=== PATIENT | female | born 1950 | race Caucasian/White ===

== ENCOUNTER 2017-01-29 08:01 | Emergency (ER) | payer OTHER, MEDICAID ==
[~2017-01-29] VITALS: Ht 162.6 cm; Wt 101.2 kg
[~2017-01-29 08:01] MED LIST: AMYL1CAP58 PO; ANT30 PO; ARIP15TA2 PO; BUSP15TA3 PO; DOCU-144 PO; EMPA10TA PO; FAMO20TA98 PO; GABA600T PO; GLUC100017 PO; INSU100V9 SUBCUT; LEVO150T PO; LISI-652 PO; LORA-259 PO; MAGN250T31 PO; MELO15TA13 PO; MORP30CP13 PO; PRO40 PO; SAXA2.5T PO; SIMV40TA2 PO; TEMA30CA5 PO; TIZA4TAB11 PO; VITA1CAP PO
[2017-01-29 08:06] VITALS: BP_SYST 174
[2017-01-29] MEDS ORDERED: IPRATROPIUM/ALBUTEROL SULFATE 3 ML AMPUL.NEB INH ONE (08:15)
[2017-01-29] MEDS ORDERED: NACL 0.9% 1,000 ML IV ONE (08:15)
--- NOTE | 2017-01-29 08:15 | NUR ---
Pt placed to ER bed 04 and to gown. Pt report received from KARON Vasquez. Pt states "I feel sick" with coughing x 10 days, coughing up "black" colored mucous. Pt also c/o Bilat rib pain from coughing. Respirations even and non-labored, BBS clear.
--- NOTE | 2017-01-29 08:38 | NUR ---
Dr. Wright at bedside to assess pt.
[2017-01-29 08:45] VITALS: BP_SYST 154
--- NOTE | 2017-01-29 08:45 | NUR ---
Patient given written and verbal discharge instructions and verbalizes understanding. ER MD discussed with patient the results and treatment provided. Patient in stable condition. ID arm band removed. Patient educated on pain management and to follow up with PMD. Pain Scale 0/10 Opportunity for questions provided and answered.
== END 2017-01-29 08:45 | disposition home or self-care (01) ==
LOC: SED 08:01
DX: B34.9 Viral infection, unspecified (principal); E78.5 Hyperlipidemia, unspecified; I10 Essential (primary) hypertension; E11.9 Type 2 diabetes mellitus without complications; Z88.0 Allergy status to penicillin; Z88.1 Allergy status to other antibiotic agents; Z79.4 Long term (current) use of insulin; Z85.850 Personal history of malignant neoplasm of thyroid
CPT/HCPCS: 71010; 99283; 99284

== ENCOUNTER 2017-03-02 15:26 | Emergency (ER) | payer OTHER, MEDICAID ==
[~2017-03-02] VITALS: Ht 162.6 cm; Wt 101.2 kg
[2017-03-02 15:26] VITALS: BP_SYST 166
[2017-03-02] MEDS ORDERED: cloNIDine HCL 0.1 MG TABLET PO ONE (16:00)
[2017-03-02 16:31] LABS: BASOPHILS % (AUTO) 0.2 % (0.0-2.0); EOSINOPHILS % (AUTO) 0.3 % (0.0-4.0); HEMATOCRIT 38.2 % (36-48); HEMOGLOBIN 12.9 g/dL (12.0-16.0); LYMPHOCYTES # (AUTO) 1.8 K/uL (1.0-5.5); LYMPHOCYTES % (AUTO) 17.3 % (20.5-51.5); MEAN CORPUSCULAR HEMOGLOBIN 30 pg (27-31); MEAN CORPUSCULAR HGB CONC 34 % (32-36); MEAN CORPUSCULAR VOLUME 88 fL (79.0-98.0); MONOCYTES # (AUTO) 0.8 K/uL (0.0-1.0); NEUTROPHILS # (AUTO) 7.6 K/uL (1.8-7.7); NEUTROPHILS % (AUTO) 74.2 % (40.0-70.0); PLATELET COUNT (AUTO) 205 K/uL (130-430); RED BLOOD CELL COUNT(AUTO) 4.32 MIL/uL (4.2-6.2); RED CELL DISTRIBUTION WIDTH 12.1 % (9.0-15.0); WHITE BLOOD COUNT (AUTO) 10.2 K/uL (4.8-10.8)
[2017-03-02 16:39] LABS: CALCIUM 11.1 mg/dL (8.4-11.0); CREATININE 1.08 mg/dL (0.55-1.30); POTASSIUM 4.2 mmol/L (3.5-5.1)
[2017-03-02 16:43] LABS: ALBUMIN 3.8 g/dL (3.4-4.8); TOTAL BILIRUBIN 0.3 mg/dL (0.0-1.0); TOTAL PROTEIN, SERUM 7.9 g/dL (6.4-8.3)
[2017-03-02 16:57] LABS: INR 0.9 (0.8-1.2); PROTHROMBIN TIME 10.3 SECS (9.5-12.5)
[2017-03-02 17:38] LABS: CKMB RELATIVE INDEX 1.6 (0.0-2.9); CREATINE KINASE MB 3.4 ng/mL (0-3.6)
[2017-03-02 18:02] VITALS: BP_SYST 132
== END 2017-03-02 18:03 | disposition home or self-care (01) ==
LOC: SED 15:26
DX: I10 Essential (primary) hypertension (principal); R51 Headache; E11.9 Type 2 diabetes mellitus without complications; Z85.850 Personal history of malignant neoplasm of thyroid; Z79.4 Long term (current) use of insulin; Z88.0 Allergy status to penicillin; Z88.1 Allergy status to other antibiotic agents
CPT/HCPCS: 36415; 70450-TC; 71010; 80053; 82550-TC; 82553-TC; 83880; 84484; 85025; 85379; 85610-TC; 85730-TC; 93005; 99285

== ENCOUNTER 2017-08-26 14:02 | Emergency (ER) | payer OTHER, MEDICAID ==
[~2017-08-26] VITALS: Ht 157.5 cm; Wt 104.3 kg
[2017-08-26 14:02] VITALS: BP_SYST 144
[2017-08-26 14:54] LABS: BILIRUBIN,URINE NEGATIVE (NEGATIVE); BLOOD, URINE NEGATIVE (NEGATIVE); CLARITY/URINE CLEAR (CLEAR); COLOR,URINE YELLOW (YELLOW); GLUCOSE,URINE NEGATIVE (NEGATIVE); KETONES,URINE NEGATIVE (NEGATIVE); LEUKOCYTE ESTERASE ,URINE NEGATIVE (NEGATIVE); NITRITE, URINE NEGATIVE (NEGATIVE); PROTEIN URINE NEGATIVE (NEGATIVE); UROBILINOGEN,URINE 0.2 (0.2-1.0)
[2017-08-26 14:58] LABS: BASOPHILS # (AUTO) 0.2 K/uL (0.0-0.2); BASOPHILS % (AUTO) 2.9 % (0.0-2.0); EOSINOPHILS # (AUTO) 0.2 K/uL (0.0-0.4); EOSINOPHILS % (AUTO) 3.1 % (0.0-4.0); HEMATOCRIT 35.6 % (36-48); LYMPHOCYTES # (AUTO) 0.6 K/uL (1.0-5.5); LYMPHOCYTES % (AUTO) 9.3 % (20.5-51.5); MEAN CORPUSCULAR HEMOGLOBIN 30 pg (27-31); MEAN CORPUSCULAR HGB CONC 34 % (32-36); MEAN CORPUSCULAR VOLUME 89 fL (79.0-98.0); MONOCYTES # (AUTO) 0.7 K/uL (0.0-1.0); MONOCYTES % (AUTO) 11.3 % (1.7-9.3); NEUTROPHILS # (AUTO) 4.8 K/uL (1.8-7.7); NEUTROPHILS % (AUTO) 73.4 % (40.0-70.0); PLATELET COUNT (AUTO) 163 K/uL (130-430); RED BLOOD CELL COUNT(AUTO) 4.01 MIL/uL (4.2-6.2); RED CELL DISTRIBUTION WIDTH 12.6 % (9.0-15.0); WHITE BLOOD COUNT (AUTO) 6.5 K/uL (4.8-10.8)
[2017-08-26 15:10] LABS: BARBITURATE, URINE NEGATIVE (NEG <=200); BENZODIAZEPINE, URINE POSITIVE (NEG <=150); CANNABINOID, URINE NEGATIVE (NEG <=50); COCAINE, URINE NEGATIVE (NEG <=150); METHAMPHETAMINES SCREEN,URINE NEGATIVE (NEG <=500); OPIATE, URINE POSITIVE (NEG <=100); PHENCYCLIDINE SCREEN,URINE NEGATIVE (NEG <=25); UR TRICYCLIC ANTIDEPRESSANTS NEGATIVE (NEG <=300); URINE AMPHETAMINE NEGATIVE (NEG <=500); URINE METHADONE NEGATIVE (NEG <=200); URINE OXYCODONE SCREEN NEGATIVE (NEG <=100); URINE PROPOXYPHENE SCREEN NEGATIVE (NEG <=300)
[2017-08-26 15:10] LABS: ANION GAP 6 (5-15); CALCIUM 8.1 mg/dL (8.4-11.0); CHLORIDE 105 mmol/L (98-107); CREATININE 0.96 mg/dL (0.55-1.30); GLUCOSE 93 mg/dL (70-99); POTASSIUM 3.9 mmol/L (3.5-5.1); SODIUM SERUM 138 mmol/L (136-145); UREA NITROGEN, BLOOD 26 mg/dL (8-21)
[2017-08-26 15:12] LABS: PROTHROMBIN TIME 10.2 SECS (9.5-12.5)
[2017-08-26 15:23] LABS: GFR AFRICAN AMERICAN 75 mL/min (>90)
[2017-08-26 15:26] LABS: ALANINE AMINOTRANSFERASE 44 U/L (12-78); ALBUMIN 3.5 g/dL (3.4-4.8); ASPARTATE AMINOTRANSFERASE 32 U/L (10-37); FREE T4 (FREE THYROXINE) 1.6 ng/dL (0.6-1.6); TOTAL BILIRUBIN 0.6 mg/dL (0.0-1.0)
[2017-08-26 15:27] LABS: ALCOHOL, BLOOD < 3 mg/dL (<10)
[2017-08-26] MEDS ORDERED: ALPRAZolam 0.25 MG TABLET PO ONE (15:30)
[2017-08-26 16:40] VITALS: BP_SYST 138
== END 2017-08-26 16:40 | disposition home or self-care (01) ==
LOC: SED 14:02
DX: F41.9 Anxiety disorder, unspecified (principal); E03.9 Hypothyroidism, unspecified; M79.1 Myalgia; E11.9 Type 2 diabetes mellitus without complications; I10 Essential (primary) hypertension; E11.40 Type 2 diabetes mellitus with diabetic neuropathy, unspecified; F31.9 Bipolar disorder, unspecified; Z90.49 Acquired absence of other specified parts of digestive tract; Z79.4 Long term (current) use of insulin; Z79.899 Other long term (current) drug therapy; Z88.0 Allergy status to penicillin; Z88.1 Allergy status to other antibiotic agents
CPT/HCPCS: 36415; 71010; 74000; 80053; 80307; 81003; 82140; 83605; 83880; 84439; 84484; 85025; 85610; 87040; 93005; 99285; G0482

== ENCOUNTER 2017-12-01 15:37 | Emergency (ER) | payer OTHER, MEDICAID ==
[~2017-12-01] VITALS: Ht 162.6 cm; Wt 108.9 kg
[2017-12-01 15:40] VITALS: BP_SYST 164
[2017-12-01 16:38] LABS: BILIRUBIN,URINE NEGATIVE (NEGATIVE); BLOOD, URINE NEGATIVE (NEGATIVE); CLARITY/URINE CLEAR (CLEAR); COLOR,URINE YELLOW (YELLOW); GLUCOSE,URINE NEGATIVE (NEGATIVE); KETONES,URINE NEGATIVE (NEGATIVE); LEUKOCYTE ESTERASE ,URINE NEGATIVE (NEGATIVE); NITRITE, URINE NEGATIVE (NEGATIVE); PH,URINE 5.5 (5.0-8.0); PROTEIN URINE NEGATIVE (NEGATIVE); UROBILINOGEN,URINE 0.2 (0.2-1.0)
[2017-12-01 16:55] LABS: CALCIUM 9.6 mg/dL (8.4-11.0); CREATININE 1.04 mg/dL (0.55-1.30); POTASSIUM 4.7 mmol/L (3.5-5.1)
[2017-12-01 16:58] LABS: PROTHROMBIN TIME 9.8 SECS (9.5-12.5)
[2017-12-01 17:00] LABS: ALBUMIN 3.5 g/dL (3.4-4.8); TOTAL BILIRUBIN 0.4 mg/dL (0.0-1.0)
[2017-12-01 17:38] LABS: BASOPHILS # (AUTO) 0.1 K/uL (0.0-0.2); BASOPHILS % (AUTO) 1.2 % (0.0-2.0); EOSINOPHILS % (AUTO) 0.5 % (0.0-4.0); HEMATOCRIT 35.6 % (36-48); HEMOGLOBIN 11.7 g/dL (12.0-16.0); LYMPHOCYTES # (AUTO) 0.8 K/uL (1.0-5.5); LYMPHOCYTES % (AUTO) 8.2 % (20.5-51.5); MEAN CORPUSCULAR HEMOGLOBIN 29 pg (27-31); MEAN CORPUSCULAR HGB CONC 33 % (32-36); MEAN CORPUSCULAR VOLUME 89 fL (79.0-98.0); MONOCYTES # (AUTO) 0.5 K/uL (0.0-1.0); MONOCYTES % (AUTO) 5.4 % (1.7-9.3); NEUTROPHILS # (AUTO) 7.8 K/uL (1.8-7.7); NEUTROPHILS % (AUTO) 84.7 % (40.0-70.0); PLATELET COUNT (AUTO) 195 K/uL (130-430); RED BLOOD CELL COUNT(AUTO) 3.99 MIL/uL (4.2-6.2); RED CELL DISTRIBUTION WIDTH 13.8 % (9.0-15.0); WHITE BLOOD COUNT (AUTO) 9.2 K/uL (4.8-10.8)
[2017-12-01] MEDS: LORazepam 1 MG TABLET PO ONE ×2 (18:52→19:01)
[2017-12-01 19:16] VITALS: BP_SYST 150
== END 2017-12-01 19:16 | disposition home or self-care (01) ==
LOC: SED 15:37
DX: R50.9 Fever, unspecified (principal); R51 Headache; M79.1 Myalgia; I10 Essential (primary) hypertension; E03.9 Hypothyroidism, unspecified; E11.21 Type 2 diabetes mellitus with diabetic nephropathy; F32.9 Major depressive disorder, single episode, unspecified; Z85.850 Personal history of malignant neoplasm of thyroid; Z90.710 Acquired absence of both cervix and uterus; Z90.49 Acquired absence of other specified parts of digestive tract; Z88.0 Allergy status to penicillin; Z88.1 Allergy status to other antibiotic agents; Z79.899 Other long term (current) drug therapy
CPT/HCPCS: 36415; 71045; 80053; 81003; 85025; 85610-TC; 85730-TC; 99285

== ENCOUNTER 2018-05-07 08:04 | Emergency (ER) | payer OTHER, MEDICAID ==
[~2018-05-07] VITALS: Ht 165.1 cm; Wt 99.8 kg
[~2018-05-07 08:04] MED LIST changes: -EMPA10TA PO; -INSU100V9 SUBCUT; -LORA-259 PO; -MELO15TA13 PO; -TIZA4TAB11 PO
[2018-05-07 08:05] VITALS: BP_SYST 123
--- NOTE | 2018-05-07 08:09 | NUR ---
Arrived via [facility] ambulance with compliant of swelling to the tongue, lips, itching of palms & abdomen which has hives. Denies exposure to potiental allergens, specifically denies new soaps, foods, or plants. IV 22G left hand. Placed in room 2. Placed on metal fabricating shop helper, blood pressure machine and pulse oximeter. To gown for exam. Side rails up. Report given to Malcolm BRANTLEY.
--- NOTE | 2018-05-07 08:15 | NUR ---
Dr. Cheek at bedside.
[2018-05-07] MEDS ORDERED: FAMOTIDINE PF 20 MG/2 ML VIAL IVP ONE (08:30)
[2018-05-07] MEDS ORDERED: DIPHENHYDRAMINE INJ 50 MG/ML VIAL IVP ONE (08:30)
[2018-05-07] MEDS ORDERED: DEXAMETHASONE SOD PHOSPHATE 10 MG/ML VIAL IVP ONE (08:30)
[2018-05-07] MEDS ORDERED: ALBUTEROL SULFATE 0.083% 2.5 MG/3 ML VIAL.NEB INH ONE (08:30)
[2018-05-07 08:53] LABS: BASOPHILS # (AUTO) 0.1 K/uL (0.0-0.2); BASOPHILS % (AUTO) 0.8 % (0.0-2.0); EOSINOPHILS # (AUTO) 0.1 K/uL (0.0-0.4); EOSINOPHILS % (AUTO) 1.1 % (0.0-4.0); HEMATOCRIT 36.3 % (36-48); HEMOGLOBIN 12.3 g/dL (12.0-16.0); LYMPHOCYTES # (AUTO) 1.7 K/uL (1.0-5.5); LYMPHOCYTES % (AUTO) 15.7 % (20.5-51.5); MEAN CORPUSCULAR HEMOGLOBIN 30 pg (27-31); MEAN CORPUSCULAR HGB CONC 34 % (32-36); MEAN CORPUSCULAR VOLUME 89 fL (79.0-98.0); MONOCYTES # (AUTO) 0.3 K/uL (0.0-1.0); MONOCYTES % (AUTO) 2.9 % (1.7-9.3); NEUTROPHILS # (AUTO) 8.4 K/uL (1.8-7.7); NEUTROPHILS % (AUTO) 79.5 % (40.0-70.0); PLATELET COUNT (AUTO) 226 K/uL (130-430); RED BLOOD CELL COUNT(AUTO) 4.08 MIL/uL (4.2-6.2); RED CELL DISTRIBUTION WIDTH 13.6 % (9.0-15.0); WHITE BLOOD COUNT (AUTO) 10.6 K/uL (4.8-10.8)
[2018-05-07 08:57] LABS: CALCIUM 9.1 mg/dL (8.4-11.0); CREATININE 1.42 mg/dL (0.55-1.30); POTASSIUM 4.4 mmol/L (3.5-5.1)
--- NOTE | 2018-05-07 09:00 | NUR ---
No SOB, airway patent. No needs verbalized at this time.
[2018-05-07 09:04] LABS: ALBUMIN 3.3 g/dL (3.4-4.8); TOTAL BILIRUBIN 0.3 mg/dL (0.0-1.0)
--- NOTE | 2018-05-07 09:45 | NUR ---
Reduction in swelling to tongue and hives. Pt denies c/o pain or discomfort, airway patent, no SOB. No needs verbalized at this time.
[2018-05-07 10:30] VITALS: BP_SYST 128
--- NOTE | 2018-05-07 10:30 | NUR ---
Patient given written and verbal discharge instructions and verbalizes understanding. ER MD discussed with patient the results and treatment provided. Patient in stable condition. ID arm band removed. IV catheter removed intact and dressing applied, no active bleeding. Rx of Loratadine, Prednisone, Diphenhydramine given. Patient educated on pain management and to follow up with PMD. Pain Scale 0/10. Opportunity for questions provided and answered. Medication side effect fact sheet provided.
== END 2018-05-07 10:30 | disposition home or self-care (01) ==
LOC: SED 08:04
DX: T78.3XXA Angioneurotic edema, initial encounter (principal); E03.9 Hypothyroidism, unspecified; E11.40 Type 2 diabetes mellitus with diabetic neuropathy, unspecified; F32.9 Major depressive disorder, single episode, unspecified; I10 Essential (primary) hypertension; Z85.850 Personal history of malignant neoplasm of thyroid; Z90.49 Acquired absence of other specified parts of digestive tract; Z88.1 Allergy status to other antibiotic agents; Z88.0 Allergy status to penicillin; Z79.899 Other long term (current) drug therapy
CPT/HCPCS: 36415; 80053; 85025; 94640; 96374; 96375; 99284; J1100; J1200; J3490; J7613

== ENCOUNTER 2018-07-12 10:49 | Emergency (ER) | payer OTHER, MEDICAID ==
[~2018-07-12] VITALS: Ht 162.6 cm; Wt 103.9 kg
[~2018-07-12 10:49] MED LIST changes: +FAMO-132 PO; -FAMO20TA98 PO; +MAGN250T10 PO; -MAGN250T31 PO
--- NOTE | 2018-07-12 10:53 | NUR ---
Pt placed in bed 7
[2018-07-12 10:58] VITALS: BP_SYST 180
--- NOTE | 2018-07-12 11:10 | NUR ---
Patient c/c of pain to right arm. Patient states pain started approximately 3 days ago, worsening overnight. Patient states she takes Morphine ER and Baclofen for sciatica pain, took for this pain as well. States after taking medications no relief was noted. Patient does have history of pinched nerve behind right ear, states the pain does not feel like it is nerve related, feels like it is more muscular.
--- NOTE | 2018-07-12 11:41 | NUR ---
ER at bedside examining patient.
[2018-07-12] MEDS ORDERED: KETOROLAC TROMETHAMINE 60 MG/2 ML VIAL IM ONE (11:45)
--- NOTE | 2018-07-12 11:45 | NUR ---
Lisa ann in ED - 07/12/18 at 1148 by [email or web address] YOLANDA Rnoquillo at bedside examining patient.
--- NOTE | 2018-07-12 11:52 | NUR ---
Radiology at bedside
--- NOTE | 2018-07-12 12:50 | NUR ---
Pain reassessed at 03/19, patient states she is very tired as she did not sleep well last night. She feels like the medication and helped and MD aware of results of radiology reports.
[2018-07-12 13:06] VITALS: BP_SYST 164
--- NOTE | 2018-07-12 13:06 | NUR ---
Patient given written and verbal discharge instructions and verbalizes understanding. ER MD discussed with patient the results and treatment provided. Patient in stable condition. ID arm band removed. Rx of [place] and Motrin given. Patient educated on pain management and to follow up with PMD. Pain Scale 1/10. Opportunity for questions provided and answered. Medication side effect fact sheet provided.
== END 2018-07-12 13:06 | disposition home or self-care (01) ==
LOC: SED 10:49
DX: M65.20 Calcific tendinitis, unspecified site (principal); E11.40 Type 2 diabetes mellitus with diabetic neuropathy, unspecified; F32.9 Major depressive disorder, single episode, unspecified; E03.9 Hypothyroidism, unspecified; I10 Essential (primary) hypertension; Z85.850 Personal history of malignant neoplasm of thyroid; Z88.0 Allergy status to penicillin; Z88.1 Allergy status to other antibiotic agents; Z79.899 Other long term (current) drug therapy
CPT/HCPCS: 73060; 73090; 96372; 99284; J1885

== ENCOUNTER 2019-05-09 16:40 | Emergency (ER) | payer OTHER, MEDICAID ==
[~2019-05-09] VITALS: Ht 162.6 cm; Wt 114.3 kg
[2019-05-09 16:56] VITALS: BP_SYST 184
[2019-05-09] MEDS ORDERED: LORazepam 1 MG TABLET PO ONE (17:30)
[2019-05-09] MEDS ORDERED: LORazepam 2 MG/ML VIAL (FOR ER USE) IM ONE (18:45)
[2019-05-09] MEDS ORDERED: ONDANSETRON 4 MG ODT TAB PO ONE (19:00)
[2019-05-09 19:04] LABS: BASOPHILS % (AUTO) 0.3 % (0.0-2.0); EOSINOPHILS # (AUTO) 0.1 K/uL (0.0-0.4); EOSINOPHILS % (AUTO) 0.8 % (0.0-4.0); HEMOGLOBIN 9.9 g/dL (12.0-16.0); LYMPHOCYTES # (AUTO) 0.9 K/uL (1.0-5.5); LYMPHOCYTES % (AUTO) 15.6 % (20.5-51.5); MEAN CORPUSCULAR HEMOGLOBIN 26 pg (27-31); MEAN CORPUSCULAR HGB CONC 32 % (32-36); MEAN CORPUSCULAR VOLUME 81 fL (79.0-98.0); MONOCYTES # (AUTO) 0.4 K/uL (0.0-1.0); MONOCYTES % (AUTO) 6.3 % (1.7-9.3); NEUTROPHILS # (AUTO) 4.7 K/uL (1.8-7.7); PLATELET COUNT (AUTO) 196 K/uL (130-430); RED BLOOD CELL COUNT(AUTO) 3.81 MIL/uL (4.2-6.2); RED CELL DISTRIBUTION WIDTH 15.3 % (9.0-15.0); WHITE BLOOD COUNT (AUTO) 6.1 K/uL (4.8-10.8)
[2019-05-09 19:07] LABS: CALCIUM 9.5 mg/dL (8.4-11.0); CREATININE 0.88 mg/dL (0.55-1.30); POTASSIUM 3.8 mmol/L (3.5-5.1)
[2019-05-09 19:12] LABS: ALBUMIN 3.4 g/dL (3.4-4.8); TOTAL BILIRUBIN 0.4 mg/dL (0.0-1.0)
[2019-05-09 20:11] VITALS: BP_SYST 150
== END 2019-05-09 20:12 | disposition home or self-care (01) ==
LOC: SED 16:40
DX: F41.9 Anxiety disorder, unspecified (principal); I10 Essential (primary) hypertension; E03.9 Hypothyroidism, unspecified; E11.9 Type 2 diabetes mellitus without complications; F31.9 Bipolar disorder, unspecified; Z85.850 Personal history of malignant neoplasm of thyroid; Z88.0 Allergy status to penicillin; Z88.1 Allergy status to other antibiotic agents; Z79.899 Other long term (current) drug therapy
CPT/HCPCS: 36415; 71045; 80053; 82550; 82962; 83880; 84484; 85025; 96372; 99284; J2060; Q0162

== ENCOUNTER 2019-07-08 03:30 | Inpatient (IN) | payer OTHER, MEDICAID ==
[~2019-07-08] VITALS: Ht 162.6 cm; Wt 102.1 kg
[2019-07-08 03:30] VITALS: BP_SYST 190
--- NOTE | 2019-07-08 03:30 | NUR ---
Placed in room 1 . Placed on monitoring manager, blood pressure machine and pulse oximeter. To gown for exam. Side rails up.
--- NOTE | 2019-07-08 03:35 | NUR ---
Pt came to the ED for allergic reaction possibly to blood pressure medication. Reports that she has had a similiar episode due to taking lisinopril however, she broke out in hives. Pt received IM epi 0.5 IM and albuterol tx. Denies n/v/d or fever. No other complaints/injuries noted. Will cont. to monitor.
--- NOTE | 2019-07-08 03:35 | NUR ---
ER at bedside examining patient.
--- NOTE | 2019-07-08 03:45 | NUR ---
placed pt on 2L NC per md order. Tolerated well. Will cont. to monitor.
[2019-07-08] MEDS ORDERED: DIPHENHYDRAMINE INJ 50 MG/ML VIAL IVP ONE (04:00)
[2019-07-08] MEDS ORDERED: methylPREDNISolone SOD SUCC/PF 62.5 MG/ML VIAL IVP ONE (04:00)
[2019-07-08] MEDS ORDERED: MORP15TA PO (04:07)
[2019-07-08] MEDS ORDERED: LEVO137T2 PO (04:09)
[2019-07-08] MEDS ORDERED: BACL20TA PO (04:10)
[2019-07-08] MEDS ORDERED: HYDR25TA4 PO (04:11)
[2019-07-08] MEDS ORDERED: GLU500 PO (04:12)
[2019-07-08] MEDS ORDERED: POTA8TAB4 PO (04:14)
[2019-07-08] MEDS ORDERED: FURO-150 PO (04:14)
[2019-07-08] MEDS ORDERED: LOSA50TA3 PO (04:14)
[2019-07-08] MEDS ORDERED: INSU100V SQ ×2 (04:17→05:05)
[2019-07-08] MEDS ORDERED: PRO20 PO (04:57)
[2019-07-08] MEDS ORDERED: CAT.1 PO (04:58)
[2019-07-08] MEDS ORDERED: PRAM0.122 PO (04:58)
[2019-07-08] MEDS ORDERED: INSU300I3 SQ (05:00)
--- NOTE | 2019-07-08 05:10 | NUR ---
Medication reconciliation completed with information provided by patient. Any prior medication reconciliation on file was reviewed and corrected.
--- NOTE | 2019-07-08 05:13 | NUR ---
Patient will be admitted to care of Dr. Kelly. Admitted to Tele unit. Will go to room 126A. Belongings list completed. Summary report printed. Report will be given at bedside.
--- NOTE | 2019-07-08 05:14 | NUR ---
Dr. Echeverria ordered morphine for pt, however time stamp is 2329. however, YOLANDA BETTS changed order to be given now.
[2019-07-08 05:18] LABS: HEMOGLOBIN 9.8 g/dL (12.0-16.0); MEAN CORPUSCULAR HGB CONC 32 % (32-36); WHITE BLOOD COUNT (AUTO) 5.3 K/uL (4.8-10.8)
[2019-07-08 05:20] LABS: CALCIUM 9.1 mg/dL (8.4-11.0); CREATININE 1.16 mg/dL (0.55-1.30); POTASSIUM 3.9 mmol/L (3.5-5.1)
[2019-07-08 05:24] LABS: PROTHROMBIN TIME 9.6 SECS (9.5-12.5)
[2019-07-08 05:25] LABS: BASOPHILS % (AUTO) 0.4 % (0.0-2.0); EOSINOPHILS # (AUTO) 0.1 K/uL (0.0-0.4); EOSINOPHILS % (AUTO) 1.7 % (0.0-4.0); HEMATOCRIT 30.5 % (36-48); LYMPHOCYTES # (AUTO) 1.2 K/uL (1.0-5.5); MEAN CORPUSCULAR HEMOGLOBIN 26 pg (27-31); MEAN CORPUSCULAR VOLUME 81 fL (79.0-98.0); MONOCYTES # (AUTO) 0.5 K/uL (0.0-1.0); MONOCYTES % (AUTO) 9.4 % (1.7-9.3); NEUTROPHILS # (AUTO) 3.5 K/uL (1.8-7.7); NEUTROPHILS % (AUTO) 65.5 % (40.0-70.0); PLATELET COUNT (AUTO) 208 K/uL (130-430); RED BLOOD CELL COUNT(AUTO) 3.75 MIL/uL (4.2-6.2); RED CELL DISTRIBUTION WIDTH 15.5 % (9.0-15.0)
[2019-07-08] MEDS ORDERED: MORPHINE 4 MG/ML INJ. SYRINGE ONE (05:31)
[2019-07-08 05:32] LABS: ALBUMIN 3.3 g/dL (3.4-4.8); TOTAL BILIRUBIN 0.4 mg/dL (0.0-1.0)
[2019-07-08 05:50] VITALS: BP_SYST 188
--- NOTE | 2019-07-08 05:50 | NUR ---
ADMISSION NOTE Received patient from ER via félix, received report from KARON PETERS. Patient admitted with diagnosis of ANGIOEDEMA. Patient oriented to hospital routine, call light, toileting and safety-patient verbalized understanding.
--- NOTE | 2019-07-08 05:50 | NUR ---
Transfer to Tele via ACLS protocol. Licensed nurse present. IV present no signs or symptoms of infiltration.
--- NOTE | 2019-07-08 06:55 | NUR ---
CLOSING NOTE Patient in bed, resting. No s/s of acute distress noted. Breathing even and unlabored. IV site patent, no signs of infiltration or infection noted. HOB raised. All needs met. Fall and safety precautions maintained throughout shift. Will continue to monitor until patient care is endorsed to oncoming dayshift nurse.
[2019-07-08] MEDS: LEVOTHYROXINE SODIUM 0.137 MG TABLET PO SCH (07:00)
[2019-07-08] MEDS ORDERED: MORPHINE SULFATE 30 MG Immediate Release TABLET PO PRN (07:15)
[2019-07-08] MEDS ORDERED: HYDROcodone/ACETAMIN 5-325 MG TAB (NORCO/ VICODIN) PO PRN (07:15)
[2019-07-08] MEDS ORDERED: ONDANSETRON HCL 4 MG/2 ML VIAL IVP PRN (07:15)
[2019-07-08] MEDS ORDERED: MAG-AL HYDROX/SIMETH 30 ML UDC PO PRN (07:15)
[2019-07-08] MEDS ORDERED: ACETAMINOPHEN 325 MG TABLET PO PRN (07:15)
--- NOTE | 2019-07-08 07:45 | NUR ---
OPENING NOTE PATIENT AWAKE ALERT IN BED. A/OX4. CONT ON O2@2L/M VIA NC. NO ACUTE DISTRESS. NO SOB. RESP EVEN AND UNLABORED. SKIN WARM AND DRY TO TOUCH. IV INTACT AND PATENT, SL. BED IN LOW AND LOCKED POSITION. SIDERAIL UP X2.BED ALARM ON. ORIENTED PATIENT TO CALL LIGHT AND BED. ALL NEEDS MET. CONT TO MONITOR
[2019-07-08 08:00] VITALS: BP_SYST 148
[2019-07-08] MEDS ORDERED: GLUCOSAMINE SULFATE PO SCH (09:00)
[2019-07-08] MEDS ORDERED: NON-FORMULARY MEDICATION (Magnesium Oxide (Magnesium) 500 MG) PO SCH (09:00)
[2019-07-08] MEDS ORDERED: INSULIN GLARGINE HUM REC ANLOG 70 UNIT SQ SCH (09:00)
--- NOTE | 2019-07-08 09:30 | NUR ---
NOTE ASSISTED PATIENT TO BATHROOM; UNSTEADY GAIT NOTED. PLACED BEDSIDE COMMODE AT BEDSIDE FOR PATIENT. ALL NEEDS MET. CONT TO MONITOR. CALL LIGHT IN REACH.
[2019-07-08] MEDS: VITAMIN B COMPLEX 1 CAP/TAB PO SCH (10:17)
[2019-07-08] MEDS: DOCUSATE SODIUM 100 MG CAPSULE PO SCH ×2 (10:17→20:48)
[2019-07-08] MEDS: BACLOFEN 10 MG TABLET PO SCH ×2 (10:17→20:48)
[2019-07-08] MEDS: FLUoxetine HCL 20 MG CAPSULE (PROzac) PO SCH (10:17)
[2019-07-08] MEDS: LIPASE/PROTEASE/AMYLASE 1 CAP PO SCH ×3 (10:17→20:47)
[2019-07-08] MEDS: HYDROCHLOROTHIAZIDE 25 MG TABLET (HCTZ) PO SCH (10:18)
[2019-07-08] MEDS: SIMVASTATIN 40 MG TABLET PO SCH (10:18)
[2019-07-08] MEDS: GABAPENTIN 300 MG CAPSULE PO SCH ×3 (10:18→20:48)
[2019-07-08] MEDS: FUROSEMIDE 20 MG TABLET PO SCH (10:19)
[2019-07-08] MEDS: PANTOPRAZOLE SODIUM 40 MG TAB PO SCH (10:19)
[2019-07-08] MEDS: POTASSIUM CHLORIDE 8 MEQ TABLET.SA PO SCH (10:19)
[2019-07-08] MEDS: cloNIDine HCL 0.1 MG TABLET PO SCH ×2 (10:20→20:50)
[2019-07-08] MEDS: metFORMIN HCL 500 MG TABLET PO SCH ×2 (10:20→17:41)
[2019-07-08] MEDS: methylPREDNISolone SOD SUCC 40 MG/ML VIAL IVP SCH ×2 (10:21→20:51)
[2019-07-08] MEDS: FAMOTIDINE PF 20 MG/2 ML VIAL IVP SCH ×2 (10:21→20:51)
[2019-07-08] MEDS: INSULIN Lispro 100 UNITS/ML VIAL (humaLOG) SUBCUT SCH (10:31)
[2019-07-08] MEDS: INSULIN GLARGINE 100 UNITS/ML 10 ML VIAL SUBCUT SCH (10:32)
[2019-07-08] MEDS: DIPHENHYDRAMINE INJ 50 MG/ML VIAL IVP SCH ×3 (11:22→23:01)
--- NOTE | 2019-07-08 11:26 | NUR ---
NOTE BENADRYL ADMINISTERED ORDERED, MARIANA WELL. PER PATIENT FACIAL SWELLING IS SUBSIDING. NO ACUTE DISTRESS. NO SOB. RESP EVEN AND UNLABORED. ALL NEEDS MET. CONT TO MONITOR
[2019-07-08 12:38] VITALS: BP_SYST 122
--- NOTE | 2019-07-08 13:15 | NUR ---
NOTE PATIENT TALKING ON PHONE. PATIENT STATED SWELLING TO TONGUE/MOUTH HAS IMPROVED. DENIES ANY SOB OR DIFFICULTY BREATHING. SpO2@95% ON ROOM AIR. ALL NEEDS MET. CONT TO MONITOR. CALL LIGHT IN REACH
[2019-07-08] MEDS ORDERED: NORMAL SALINE 5 ML DISP.SYRIN IVF SCH (14:00)
[2019-07-08] MEDS: NORMAL SALINE 5 ML DISP.SYRIN IVF SCH ×2 (14:37→20:52)
--- NOTE | 2019-07-08 14:45 | NUR ---
MEDS ALL DUE MEDS ADMINISTERED ORDERED, MARIANA WELL. MINE INSPECTOR FEDERAL CHANGED PATIENTS LINEN AND GOWN. ALL NEEDS MET. CONT TO MONITOR. CALL LIGHT IN REACH
[2019-07-08] MEDS: LORazepam 2 MG/ML VIAL IVP PRN (14:48)
[2019-07-08 16:00] VITALS: BP_SYST 149
--- NOTE | 2019-07-08 16:30 | NUR ---
NOTE PATIENT RESTING IN BED. ROOM AIR. NO S/SX PAIN. NO ACUTE DISTRESS. NOTED RISE/FALL PATIENTS CHEST. SKIN WARM AND DRY. CALL LIGHT IN REACH. CONT TO MONITOR
--- NOTE | 2019-07-08 17:44 | NUR ---
NOTE PATIENTS BLOOD GLUCOSE IS 146 mg/dL. NO C/O PAIN. NO ACUTE DISTRESS. DINNER SET UP FOR PATIENT. ALL NEEDS MET. CALL LIGHT IN REACH. CONT TO MONITOR
--- NOTE | 2019-07-08 19:00 | NUR ---
CLOSING NOTE PATIENT AWAKE ON PHONE. NO C/O PAIN. NO ACUTE DISTRESS. NO SOB. SKIN WARM AND DDRY TO TOUCH. IV INTACT AND PATENT. ALL NEEDS MET. CALL LIGHT IN REACH. WILL ENDORSE TO ONCOMING PEPE
--- NOTE | 2019-07-08 19:22 | NUR ---
OPENING NOTE PATIENT AWAKE AND ALERT IN BED. A/OX4. BREATHING IS UNLABORED, PT TOLERATING ROOM AIR. NO ACUTE DISTRESS. IV INTACT AND PATENT, SL. POC DISCUSSED WITH PT, PT VERBALIZED UNDERSTANDING. PT ENCOURAGED TO CALL FOR ANY ASSISTANCE, CALL LIGHT IS WITH PT. BED IN LOW AND LOCKED POSITION. SIDE RAILS UP X2.BED ALARM ON. ORIENTED PATIENT TO CALL LIGHT AND BED. ALL NEEDS MET. CONT TO MONITOR
--- NOTE | 2019-07-08 20:51 | NUR ---
MED PASS SCHEDULED MEDICATIONS ADMINISTERED ORDERED. ACCUCHECK SHOWED BLOOD SUGAR OF 138, NO INSULIN COVERAGE. MEDICATIONS DISCUSSED WITH PT, PT VERBALIZED UNDERSTANDING. SAFETY MAINTAINED. WILL MONITOR.
[2019-07-08] MEDS ORDERED: PRAMIPEXOLE DI-HCL 0.25 MG TABLET PO SCH (21:00)
[2019-07-08] MEDS ORDERED: TEMAZEPAM 15 MG CAPSULE PO SCH (21:00)
[2019-07-08] MEDS: HYDROcodone/ACETAMIN 10-325 MG TAB PO PRN (21:01)
--- NOTE | 2019-07-08 21:01 | NUR ---
PAIN/NORCO PT REPORTING SEVERE PAIN. NORCO 10-325 MG PO ADMINISTERED PRN ORDERED. MEDICATION ACTION AND POTENTIAL SIDE EFFECTS EXPLAINED . PT VERBALIZED UNDERSTANDING. PT DENIES FURTHER NEEDS. SAFETY MAINTAINED. WILL MONITOR.
--- NOTE | 2019-07-08 23:01 | NUR ---
SCHEDULED BENADRYL SCHEDULED BENADRYL ADMINISTERED ORDERED. PT RESTING IN BED, NO S/S OF ACUTE DISTRESS. BREATHING IS EVEN AND UNLABORED TO ROOM AIR. SAFETY AND FALL PRECAUTIONS ARE IN PLACE. WILL MONITOR.
[2019-07-08] MEDS ORDERED: MORPHINE 4 MG/ML INJ. SYRINGE IVP ONE (23:30)
--- NOTE | 2019-07-09 01:24 | NUR ---
RN ROUNDS: PT RESTING IN BED WITH EYES CLOSED. VISIBLE SYMMETRICAL RISE AND FALL OF CHEST TO ROOM AIR. NO S/S OF DISTRESS. SAFETY MAINTAINED. WILL MONITOR.
--- NOTE | 2019-07-09 03:05 | NUR ---
SLEEPING PT SLEEPING IN BED, SOFT SNORE CAN BE HEARD. NO SIGNS OF DISTRESS. NO SIGNS OF PAIN OR DISCOMFORT. PT APPEARS COMFORTABLE. SAFETY PRECAUTIONS OBSERVED. WILL MONITOR.
[2019-07-09] MEDS: NORMAL SALINE 5 ML DISP.SYRIN IVF SCH (04:59)
[2019-07-09] MEDS: LORazepam 2 MG/ML VIAL IVP PRN (05:00)
[2019-07-09] MEDS: DIPHENHYDRAMINE INJ 50 MG/ML VIAL IVP SCH ×2 (05:01→12:12)
--- NOTE | 2019-07-09 05:01 | NUR ---
ATIVAN/BENADRYL PT REQUESTING ATIVAN FOR ANXIETY. ATIVAN 1 MG IVP ADMINISTERED ORDERED PRN. SCHEDULED BENADRYL ALSO ADMINISTERED ORDERED. PT DENIES FURTHER NEEDS. SAFETY MAINTAINED. WILL MONITOR.
[2019-07-09] MEDS: LEVOTHYROXINE SODIUM 0.137 MG TABLET PO SCH (05:58)
[2019-07-09] MEDS: HYDROcodone/ACETAMIN 10-325 MG TAB PO PRN (06:04)
--- NOTE | 2019-07-09 06:04 | NUR ---
MED PASS PT GIVEN SCHEDULED SYNTHROID. PT ALSO GIVEN NORCO 10-325 MG PO FOR REPORT OF SEVERE BILAT LEG PAIN. ACCUCHECK SHOWED BLOOD SUGAR OF 147, NO INSULIN COVERAGE. MEDICATIONS AND POTENTIAL SIDE EFFECTS DISCUSSED. SAFETY MAINTAINED. WILL MONITOR.
--- NOTE | 2019-07-09 06:24 | NUR ---
CLOSING NOTE PT RESTING IN BED, NO S/S OF DISTRESS, BREATHING IS EVEN AND UNLABORED TO ROOM AIR. ALL NEEDS MET DURING SHIFT. SAFETY MAINTAINED. WILL CONTINUE TO MONITOR UNTIL PT CARE IS ENDORSED TO DAY SHIFT RN.
[2019-07-09 06:48] LABS: BASOPHILS % (AUTO) 0.3 % (0.0-2.0); EOSINOPHILS % (AUTO) 0.2 % (0.0-4.0); HEMOGLOBIN 9.2 g/dL (12.0-16.0); LYMPHOCYTES # (AUTO) 0.8 K/uL (1.0-5.5); LYMPHOCYTES % (AUTO) 10.3 % (20.5-51.5); MEAN CORPUSCULAR HEMOGLOBIN 26 pg (27-31); MEAN CORPUSCULAR HGB CONC 33 % (32-36); MEAN CORPUSCULAR VOLUME 81 fL (79.0-98.0); MONOCYTES # (AUTO) 0.5 K/uL (0.0-1.0); NEUTROPHILS # (AUTO) 6.3 K/uL (1.8-7.7); NEUTROPHILS % (AUTO) 83.2 % (40.0-70.0); PLATELET COUNT (AUTO) 201 K/uL (130-430); RED BLOOD CELL COUNT(AUTO) 3.47 MIL/uL (4.2-6.2); WHITE BLOOD COUNT (AUTO) 7.5 K/uL (4.8-10.8)
[2019-07-09 07:33] LABS: ALBUMIN 3.3 g/dL (3.4-4.8); CALCIUM 9.6 mg/dL (8.4-11.0); CREATININE 1.01 mg/dL (0.55-1.30); POTASSIUM 4.4 mmol/L (3.5-5.1); TOTAL BILIRUBIN 0.3 mg/dL (0.0-1.0)
--- NOTE | 2019-07-09 08:00 | NUR ---
initial notes rec patient awake alert with ivl on the r forearm in place. denies pain at this time. resp easy and unlabored. bed to the lowest position and side rails up and locked. call light within reached and knows when to call for assistance. [facility] to monitor patient.
[2019-07-09 08:34] VITALS: BP_SYST 169
[2019-07-09] MEDS: metFORMIN HCL 500 MG TABLET PO SCH (08:39)
[2019-07-09] MEDS: methylPREDNISolone SOD SUCC 40 MG/ML VIAL IVP SCH (08:40)
[2019-07-09] MEDS: FAMOTIDINE PF 20 MG/2 ML VIAL IVP SCH (08:40)
[2019-07-09] MEDS: BACLOFEN 10 MG TABLET PO SCH (08:41)
[2019-07-09] MEDS: HYDROCHLOROTHIAZIDE 25 MG TABLET (HCTZ) PO SCH (08:42)
[2019-07-09] MEDS: cloNIDine HCL 0.1 MG TABLET PO SCH (08:42)
[2019-07-09] MEDS: VITAMIN B COMPLEX 1 CAP/TAB PO SCH (08:43)
[2019-07-09] MEDS: LIPASE/PROTEASE/AMYLASE 1 CAP PO SCH ×2 (08:43→15:00)
[2019-07-09] MEDS: GABAPENTIN 300 MG CAPSULE PO SCH ×2 (08:44→15:00)
[2019-07-09] MEDS: POTASSIUM CHLORIDE 8 MEQ TABLET.SA PO SCH (08:44)
[2019-07-09] MEDS: FLUoxetine HCL 20 MG CAPSULE (PROzac) PO SCH (08:44)
[2019-07-09] MEDS: FUROSEMIDE 20 MG TABLET PO SCH (08:44)
[2019-07-09] MEDS: SIMVASTATIN 40 MG TABLET PO SCH (08:45)
[2019-07-09] MEDS: INSULIN GLARGINE 100 UNITS/ML 10 ML VIAL SUBCUT SCH (08:56)
[2019-07-09] MEDS: INSULIN Lispro 100 UNITS/ML VIAL (humaLOG) SUBCUT SCH (08:59)
[2019-07-09] MEDS: DOCUSATE SODIUM 100 MG CAPSULE PO SCH (09:02)
[2019-07-09] MEDS: PANTOPRAZOLE SODIUM 40 MG TAB PO SCH (09:02)
[2019-07-09 12:00] VITALS: BP_SYST 154
[2019-07-09 16:50] VITALS: BP_SYST 154
[2019-07-09] MEDS ORDERED: VIS25 PO (16:56)
[2019-07-09 17:01] VITALS: BP_SYST 143
--- NOTE | 2019-07-09 17:45 | NUR ---
closing notes no sob noted. was wheeled outside after seen by dr gtz. discharged instuction given. hl was removed and id band. no hypo hyperglycemic reaction noted.
--- NOTE | 2019-07-10 10:04 | NUR ---
Photographic Process Worker: met with pt. to conduct a DCPA. LIVING MANAGER met with pt. who was wearing her pants beneath her hospital gown. Once LIVING MANAGER introduced self, pt. asked when could she leave. LIVING MANAGER stated she would have to check with her Rn and Dr. Pt. was talkative and easily particpated in this interview. She appeared to be a good historian and answered all questions. LIVING MANAGER asked pt. if she had ever needed to access any mental health services. Pt stated she is Bipolar and takes her medicine on a daily basis because she does not want to get sick. She stated she sees a Psychologist and Psychiatrist from [employer] for the past 19 years on a regular basis. She also has family support. LIVING MANAGER will remain available as needed.
== END 2019-07-09 17:50 | disposition home or self-care (01) | DRG 916 ==
LOC: SED 03:30 → STU 05:48 → SMU 22:18
PROVIDERS: ADMIT Preventive Medicine Preventive Medicine/Occupational Environmental Medicine; ATTEND Preventive Medicine Preventive Medicine/Occupational Environmental Medicine
DX: T78.3XXA Angioneurotic edema, initial encounter (principal); E03.9 Hypothyroidism, unspecified; E11.40 Type 2 diabetes mellitus with diabetic neuropathy, unspecified; M54.30 Sciatica, unspecified side; C73 Malignant neoplasm of thyroid gland; D64.9 Anemia, unspecified; E11.22 Type 2 diabetes mellitus with diabetic chronic kidney disease; E11.65 Type 2 diabetes mellitus with hyperglycemia; E88.09 Other disorders of plasma-protein metabolism, not elsewhere classified; F31.9 Bipolar disorder, unspecified; I12.9 Hypertensive chronic kidney disease with stage 1 through stage 4 chronic kidney disease, or unspecified chronic kidney disease; N18.9 Chronic kidney disease, unspecified; Z85.850 Personal history of malignant neoplasm of thyroid; Z88.1 Allergy status to other antibiotic agents; Z88.0 Allergy status to penicillin; Z79.899 Other long term (current) drug therapy; Y92.89 Other specified places as the place of occurrence of the external cause
CPT/HCPCS: 36415; 71045; 80053; 82962; 83880; 84484; 85025; 85379; 85610-TC; 85730-TC; 93005; 96374; 96375; 99285; J1030; J1200; J1815; J2060; J2270; J2930; J3490

== ENCOUNTER 2019-07-13 22:37 | Inpatient (IN) | payer OTHER, MEDICAID ==
[~2019-07-13] VITALS: Ht 162.6 cm; Wt 101.0 kg
[~2019-07-13 22:37] MED LIST changes: -ARIP15TA2 PO; +BACL20TA PO; -BUSP15TA3 PO; +CAT.1 PO; -FAMO-132 PO; +FURO-150 PO; +GLU500 PO; +HYDR25TA4 PO; +INSU100V SQ; +INSU300I3 SQ; +LEVO137T2 PO; -LEVO150T PO; -LISI-652 PO; +MORP15TA PO; -MORP30CP13 PO; +POTA8TAB4 PO; +PRAM0.122 PO; +PRO20 PO; -SAXA2.5T PO; +VIS25 PO
[2019-07-13 22:45] VITALS: BP_SYST 170
[2019-07-13] MEDS ORDERED: LOSA100T3 PO (22:59)
[2019-07-13] MEDS ORDERED: LEVO175T7 PO (23:01)
[2019-07-13] MEDS ORDERED: ARIP10TA9 PO ×2 (23:06→23:21)
[2019-07-13] MEDS ORDERED: PRAM0.122 PO (23:09)
[2019-07-13] MEDS ORDERED: HYDR50TA3 PO (23:10)
[2019-07-13] MEDS ORDERED: VIS25 PO (23:12)
[2019-07-13] MEDS ORDERED: INSU100V SQ ×3 (23:17→23:19)
[2019-07-13] MEDS ORDERED: BACL20TA PO (23:20)
[2019-07-13] MEDS ORDERED: TRAZ-250 PO (23:21)
[2019-07-13] MEDS ORDERED: FLUO40CA8 PO (23:22)
[2019-07-14] MEDS ORDERED: ACETAMINOPHEN 500 MG TABLET PO ONE
[2019-07-14] MEDS ORDERED: hydrALAZINE HCL 20 MG/ML VIAL IVP ONE
[2019-07-14 00:16] LABS: BILIRUBIN,URINE NEGATIVE (NEGATIVE); BLOOD, URINE NEGATIVE (NEGATIVE); CLARITY/URINE CLEAR (CLEAR); COLOR,URINE YELLOW (YELLOW); GLUCOSE,URINE NEGATIVE (NEGATIVE); KETONES,URINE NEGATIVE (NEGATIVE); LEUKOCYTE ESTERASE ,URINE NEGATIVE (NEGATIVE); NITRITE, URINE NEGATIVE (NEGATIVE); PH,URINE 5.5 (5.0-8.0); PROTEIN URINE NEGATIVE (NEGATIVE); UROBILINOGEN,URINE 0.2 (0.2-1.0)
[2019-07-14 00:19] LABS: BASOPHILS # (AUTO) 0.2 K/uL (0.0-0.2); BASOPHILS % (AUTO) 1.9 % (0.0-2.0); CALCIUM 8.4 mg/dL (8.4-11.0); CREATININE 1.19 mg/dL (0.55-1.30); EOSINOPHILS # (AUTO) 0.2 K/uL (0.0-0.4); EOSINOPHILS % (AUTO) 2.6 % (0.0-4.0); HEMATOCRIT 28.7 % (36-48); HEMOGLOBIN 9.2 g/dL (12.0-16.0); LYMPHOCYTES % (AUTO) 12.8 % (20.5-51.5); MEAN CORPUSCULAR HEMOGLOBIN 26 pg (27-31); MEAN CORPUSCULAR HGB CONC 32 % (32-36); MEAN CORPUSCULAR VOLUME 81 fL (79.0-98.0); MONOCYTES # (AUTO) 0.6 K/uL (0.0-1.0); NEUTROPHILS # (AUTO) 5.9 K/uL (1.8-7.7); NEUTROPHILS % (AUTO) 74.7 % (40.0-70.0); PLATELET COUNT (AUTO) 194 K/uL (130-430); POTASSIUM 3.4 mmol/L (3.5-5.1); RED BLOOD CELL COUNT(AUTO) 3.55 MIL/uL (4.2-6.2); RED CELL DISTRIBUTION WIDTH 15.8 % (9.0-15.0); WHITE BLOOD COUNT (AUTO) 7.9 K/uL (4.8-10.8)
[2019-07-14 00:23] LABS: INR 0.9 (0.8-1.2); PROTHROMBIN TIME 9.5 SECS (9.5-12.5)
[2019-07-14 00:25] LABS: ALBUMIN 3.3 g/dL (3.4-4.8); TOTAL BILIRUBIN 0.4 mg/dL (0.0-1.0)
[2019-07-14] MEDS ORDERED: ONDANSETRON HCL 4 MG/2 ML VIAL IVP ONE (01:15)
[2019-07-14] MEDS ORDERED: GABAPENTIN 300 MG CAPSULE PO ONE ×2 (01:15→09:00)
[2019-07-14] MEDS ORDERED: ONDANSETRON HCL 4 MG/2 ML VIAL ONE (01:20)
[2019-07-14] MEDS ORDERED: KETOROLAC TROMETHAMINE 30 MG VIAL IVP ONE (05:15)
[2019-07-14 06:41] VITALS: BP_SYST 153
[2019-07-14 08:30] VITALS: BP_SYST 175
[2019-07-14] MEDS ORDERED: LOSARTAN POTASSIUM 50 MG TABLET (COZAAR) PO ONE (09:00)
[2019-07-14] MEDS ORDERED: POTASSIUM CHLORIDE 8 MEQ TABLET.SA PO ONE (09:00)
[2019-07-14] MEDS ORDERED: cloNIDine HCL 0.1 MG TABLET PO ONE (09:00)
[2019-07-14] MEDS ORDERED: FUROSEMIDE 20 MG TABLET PO ONE (09:00)
[2019-07-14] MEDS ORDERED: traZODone HCL 50 MG TABLET (DESYREL) PO PRN (09:00)
[2019-07-14] MEDS ORDERED: PANTOPRAZOLE SODIUM 40 MG TAB PO ONE (09:00)
[2019-07-14] MEDS ORDERED: BACLOFEN 10 MG TABLET PO PRN (09:00)
[2019-07-14] MEDS ORDERED: ARIPiprazole 5 MG TAB PO ONE (09:00)
[2019-07-14] MEDS ORDERED: FLUoxetine HCL 20 MG CAPSULE (PROzac) PO ONE (09:00)
[2019-07-14] MEDS ORDERED: INSULIN GLARGINE 100 UNITS/ML 10 ML VIAL SUBCUT ONE (09:00)
[2019-07-14] MEDS ORDERED: HYDROcodone/ACETAMIN 5-325 MG TAB (NORCO/ VICODIN) PO PRN (09:00)
[2019-07-14] MEDS: ONDANSETRON HCL 4 MG/2 ML VIAL IVP PRN ×2 (09:10→19:22)
[2019-07-14] MEDS ORDERED: metFORMIN HCL 500 MG TABLET PO ONE (09:15)
[2019-07-14] MEDS: DOCUSATE SODIUM 100 MG CAPSULE PO SCH (09:18)
[2019-07-14 09:27] LABS: BARBITURATE, URINE NEGATIVE (NEG <=200); BENZODIAZEPINE, URINE POSITIVE (NEG <=150); CANNABINOID, URINE NEGATIVE (NEG <=50); COCAINE, URINE NEGATIVE (NEG <=150); METHAMPHETAMINES SCREEN,URINE NEGATIVE (NEG <=500); OPIATE, URINE POSITIVE (NEG <=100); PHENCYCLIDINE SCREEN,URINE NEGATIVE (NEG <=25); UR TRICYCLIC ANTIDEPRESSANTS NEGATIVE (NEG <=300); URINE AMPHETAMINE NEGATIVE (NEG <=500); URINE METHADONE NEGATIVE (NEG <=200); URINE OXYCODONE SCREEN NEGATIVE (NEG <=100); URINE PROPOXYPHENE SCREEN NEGATIVE (NEG <=300)
[2019-07-14] MEDS ORDERED: LIPASE/PROTEASE/AMYLASE 1 CAP PO ONE (09:30)
[2019-07-14 09:32] LABS: BASOPHILS % (AUTO) 0.2 % (0.0-2.0); EOSINOPHILS # (AUTO) 0.1 K/uL (0.0-0.4); EOSINOPHILS % (AUTO) 1.6 % (0.0-4.0); HEMATOCRIT 30.7 % (36-48); HEMOGLOBIN 9.7 g/dL (12.0-16.0); LYMPHOCYTES # (AUTO) 0.6 K/uL (1.0-5.5); MEAN CORPUSCULAR HEMOGLOBIN 26 pg (27-31); MEAN CORPUSCULAR HGB CONC 32 % (32-36); MEAN CORPUSCULAR VOLUME 82 fL (79.0-98.0); MONOCYTES # (AUTO) 0.4 K/uL (0.0-1.0); MONOCYTES % (AUTO) 7.1 % (1.7-9.3); NEUTROPHILS % (AUTO) 81.1 % (40.0-70.0); PLATELET COUNT (AUTO) 183 K/uL (130-430); RED BLOOD CELL COUNT(AUTO) 3.76 MIL/uL (4.2-6.2); RED CELL DISTRIBUTION WIDTH 15.9 % (9.0-15.0); WHITE BLOOD COUNT (AUTO) 6.2 K/uL (4.8-10.8)
[2019-07-14 09:57] LABS: CALCIUM 8.9 mg/dL (8.4-11.0); CREATININE 1.07 mg/dL (0.55-1.30); FREE T4 (FREE THYROXINE) 1.2 ng/dl (0.8-1.5); PHOSPHORUS 3.2 mg/dL (2.7-4.5); THYROID STIMULATING HORMONE 1.16 uIu/mL (0.36-3.74)
[2019-07-14] MEDS ORDERED: DEXTROSE 50% JECT 50 ML DISP.SYRIN IVP PRN (11:00)
[2019-07-14] MEDS ORDERED: INSULIN LISPRO SLIDING SCALE 100 UNITS/ML VIAL (humaLOG) SUBCUT PRN (11:00)
[2019-07-14 12:00] VITALS: BP_SYST 120
[2019-07-14] MEDS: LIPASE/PROTEASE/AMYLASE 1 CAP PO SCH ×3 (12:41→21:02)
[2019-07-14] MEDS: MORPHINE SULFATE 30 MG Immediate Release TABLET PO PRN (12:43)
[2019-07-14] MEDS ORDERED: metFORMIN HCL 500 MG TABLET PO SCH (13:00)
[2019-07-14] MEDS: GABAPENTIN 300 MG CAPSULE PO SCH ×2 (15:06→21:03)
[2019-07-14] MEDS: ACETAMINOPHEN 325 MG TABLET PO PRN (16:08)
[2019-07-14 16:27] VITALS: BP_SYST 154
[2019-07-14] MEDS: metFORMIN HCL 500 MG TABLET PO SCH (17:18)
[2019-07-14] MEDS ORDERED: PRAMIPEXOLE DI-HCL 0.25 MG TABLET PO SCH (18:00)
[2019-07-14 20:00] VITALS: BP_SYST 127
[2019-07-14] MEDS ORDERED: SIMVASTATIN 40 MG TABLET PO SCH (21:00)
[2019-07-14] MEDS: cloNIDine HCL 0.1 MG TABLET PO SCH (21:03)
[2019-07-15 01:40] VITALS: BP_SYST 137
[2019-07-15] MEDS: MORPHINE SULFATE 30 MG Immediate Release TABLET PO PRN (03:32)
[2019-07-15] MEDS: ACETAMINOPHEN 325 MG TABLET PO PRN ×2 (05:41→11:19)
[2019-07-15] MEDS ORDERED: LEVOTHYROXINE SODIUM 0.15 MG TABLET PO SCH (07:00)
[2019-07-15 07:03] LABS: CALCIUM 8.8 mg/dL (8.4-11.0); CHLORIDE 104 mmol/L (98-107); CREATININE 1.11 mg/dL (0.55-1.30); GLUCOSE 120 mg/dL (70-99); PHOSPHORUS 2.8 mg/dL (2.7-4.5); POTASSIUM 4.6 mmol/L (3.5-5.1); SODIUM SERUM 140 mmol/L (136-145); UREA NITROGEN, BLOOD 36 mg/dL (8-21)
[2019-07-15 07:05] LABS: ANION GAP < 3 (5-15); GFR AFRICAN AMERICAN 63 mL/min (>90)
[2019-07-15 07:17] LABS: BASOPHILS # (AUTO) 0.1 K/uL (0.0-0.2); BASOPHILS % (AUTO) 0.6 % (0.0-2.0); EOSINOPHILS # (AUTO) 0.1 K/uL (0.0-0.4); EOSINOPHILS % (AUTO) 1.1 % (0.0-4.0); HEMATOCRIT 28.5 % (36-48); HEMOGLOBIN 9.1 g/dL (12.0-16.0); LYMPHOCYTES # (AUTO) 1.3 K/uL (1.0-5.5); LYMPHOCYTES % (AUTO) 15.1 % (20.5-51.5); MEAN CORPUSCULAR HEMOGLOBIN 26 pg (27-31); MEAN CORPUSCULAR HGB CONC 32 % (32-36); MEAN CORPUSCULAR VOLUME 82 fL (79.0-98.0); MONOCYTES # (AUTO) 0.6 K/uL (0.0-1.0); MONOCYTES % (AUTO) 7.2 % (1.7-9.3); NEUTROPHILS # (AUTO) 6.3 K/uL (1.8-7.7); PLATELET COUNT (AUTO) 201 K/uL (130-430); RED BLOOD CELL COUNT(AUTO) 3.46 MIL/uL (4.2-6.2); RED CELL DISTRIBUTION WIDTH 15.7 % (9.0-15.0)
[2019-07-15 07:39] VITALS: BP_SYST 128
[2019-07-15 08:16] LABS: CHOLESTEROL 123 mg/dL (<200); HDL CHOLESTEROL 45 mg/dL (>55); LDL CHOLESTEROL 60 mg/dL (<100); TRIGLYCERIDES 95 mg/dL (30-150)
[2019-07-15] MEDS: LIPASE/PROTEASE/AMYLASE 1 CAP PO SCH (08:23)
[2019-07-15] MEDS: GABAPENTIN 300 MG CAPSULE PO SCH (08:23)
[2019-07-15] MEDS: metFORMIN HCL 500 MG TABLET PO SCH (08:24)
[2019-07-15] MEDS: cloNIDine HCL 0.1 MG TABLET PO SCH (08:25)
[2019-07-15] MEDS: DOCUSATE SODIUM 100 MG CAPSULE PO SCH (08:26)
[2019-07-15] MEDS ORDERED: LOSARTAN POTASSIUM 50 MG TABLET (COZAAR) PO SCH (09:00)
[2019-07-15] MEDS ORDERED: FUROSEMIDE 20 MG TABLET PO SCH (09:00)
[2019-07-15] MEDS ORDERED: FLUoxetine HCL 20 MG CAPSULE (PROzac) PO SCH (09:00)
[2019-07-15] MEDS ORDERED: ARIPiprazole 5 MG TAB PO SCH (09:00)
[2019-07-15] MEDS ORDERED: INSULIN GLARGINE 100 UNITS/ML 10 ML VIAL SUBCUT SCH (09:00)
[2019-07-15] MEDS ORDERED: PANTOPRAZOLE SODIUM 40 MG TAB PO SCH (09:00)
[2019-07-15] MEDS ORDERED: POTASSIUM CHLORIDE 8 MEQ TABLET.SA PO SCH (09:00)
[2019-07-15 09:11] LABS: WHITE BLOOD COUNT (AUTO) 8.4 K/uL (4.8-10.8)
[2019-07-15 10:24] VITALS: BP_SYST 120
[2019-07-15 12:00] VITALS: BP_SYST 120
== END 2019-07-15 12:33 | disposition home or self-care (01) | DRG 78 ==
LOC: SED 22:37 → STU 07-14 06:08
PROVIDERS: ADMIT Family Medicine; ATTEND Family Medicine
DX: I67.4 Hypertensive encephalopathy (principal); F31.60 Bipolar disorder, current episode mixed, unspecified; E44.0 Moderate protein-calorie malnutrition; I16.0 Hypertensive urgency; I10 Essential (primary) hypertension; E03.2 Hypothyroidism due to medicaments and other exogenous substances; E87.6 Hypokalemia; G89.29 Other chronic pain; M54.9 Dorsalgia, unspecified; E11.40 Type 2 diabetes mellitus with diabetic neuropathy, unspecified; K21.9 Gastro-esophageal reflux disease without esophagitis; D64.9 Anemia, unspecified; G47.00 Insomnia, unspecified; Z88.0 Allergy status to penicillin; Z88.1 Allergy status to other antibiotic agents; Z79.4 Long term (current) use of insulin; Z79.899 Other long term (current) drug therapy; Z85.850 Personal history of malignant neoplasm of thyroid; Z90.710 Acquired absence of both cervix and uterus; Z98.51 Tubal ligation status; Z68.38 Body mass index [BMI] 38.0-38.9, adult; K86.89 Other specified diseases of pancreas
CPT/HCPCS: 36415; 70450-TC; 71046-TC; 80048; 80053; 80061; 80307; 81003; 82150-TC; 82962; 83036; 83605; 83690-TC; 83735-TC; 84100-TC; 84439; 84443-TC; 84484; 85025; 85610-TC; 85730-TC; 87040-TC; 87081; 93005; 96374; 96375; 99285; G0378; J0360; J1815; J1885; J2274; J2405

== ENCOUNTER 2019-09-06 08:33 | Emergency (ER) | payer OTHER, MEDICAID ==
[~2019-09-06] VITALS: Ht 162.6 cm; Wt 100.7 kg
[2019-09-06 08:33] VITALS: BP_SYST 144
[~2019-09-06 08:33] MED LIST changes: -ANT30 PO; +ARIP10TA9 PO; -DOCU-144 PO; +FLUO40CA8 PO; -GLUC100017 PO; -HYDR25TA4 PO; +HYDR50TA3 PO; -LEVO137T2 PO; +LEVO175T7 PO; +LOSA100T3 PO; -MAGN250T10 PO; -PRO20 PO; -TEMA30CA5 PO; +TRAZ-250 PO; -VITA1CAP PO
--- NOTE | 2019-09-06 08:46 | NUR ---
Patient to ER bed 8 to gown for evaluation. Side rails up.
--- NOTE | 2019-09-06 08:47 | NUR ---
Pt presents to ED c/o involuntary muscle spasms,pt report h/o same s/s with movemnts self resolving. Pt has been seen by neurologist with dx.
--- NOTE | 2019-09-06 08:49 | NUR ---
ER at bedside examining patient.
[2019-09-06] MEDS ORDERED: DIPHENHYDRAMINE INJ 50 MG/ML VIAL IM ONE (09:00)
--- NOTE | 2019-09-06 09:15 | NUR ---
Pt medicated tolerated well.
--- NOTE | 2019-09-06 09:49 | NUR ---
Pt reports spasms resolved.
[2019-09-06 10:14] LABS: BASOPHILS % (AUTO) 0.4 % (0.0-2.0); EOSINOPHILS % (AUTO) 0.3 % (0.0-4.0); HEMATOCRIT 27.4 % (36-48); LYMPHOCYTES # (AUTO) 0.3 K/uL (1.0-5.5); LYMPHOCYTES % (AUTO) 3.6 % (20.5-51.5); MEAN CORPUSCULAR HEMOGLOBIN 26 pg (27-31); MEAN CORPUSCULAR HGB CONC 33 % (32-36); MEAN CORPUSCULAR VOLUME 79 fL (79.0-98.0); MONOCYTES # (AUTO) 0.5 K/uL (0.0-1.0); MONOCYTES % (AUTO) 6.6 % (1.7-9.3); NEUTROPHILS # (AUTO) 7.3 K/uL (1.8-7.7); NEUTROPHILS % (AUTO) 89.1 % (40.0-70.0); PLATELET COUNT (AUTO) 191 K/uL (130-430); RED BLOOD CELL COUNT(AUTO) 3.47 MIL/uL (4.2-6.2); RED CELL DISTRIBUTION WIDTH 15.6 % (9.0-15.0); WHITE BLOOD COUNT (AUTO) 8.1 K/uL (4.8-10.8)
[2019-09-06 10:16] LABS: CALCIUM 8.5 mg/dL (8.4-11.0); CREATININE 1.31 mg/dL (0.55-1.30); POTASSIUM 3.5 mmol/L (3.5-5.1)
[2019-09-06 10:24] LABS: ALBUMIN 3.5 g/dL (3.4-4.8); TOTAL BILIRUBIN 0.3 mg/dL (0.0-1.0)
[2019-09-06 10:46] LABS: CREATINE KINASE MB 6.7 ng/mL (0-3.6)
[2019-09-06 10:55] VITALS: BP_SYST 138
--- NOTE | 2019-09-06 10:55 | NUR ---
Patient given written and verbal discharge instructions and verbalizes understanding. ER MD discussed with patient the results and treatment provided. Patient in stable condition. ID arm band removed. NO Rx given. Patient educated on pain management and to follow up with PMD. Pain Scale 0. Opportunity for questions provided and answered. Medication side effect fact sheet provided.
== END 2019-09-06 10:55 | disposition home or self-care (01) ==
LOC: SED 08:33
DX: F41.9 Anxiety disorder, unspecified (principal); E11.9 Type 2 diabetes mellitus without complications; I10 Essential (primary) hypertension; E03.9 Hypothyroidism, unspecified; G62.9 Polyneuropathy, unspecified; F32.9 Major depressive disorder, single episode, unspecified; M54.30 Sciatica, unspecified side; Z85.850 Personal history of malignant neoplasm of thyroid; Z79.4 Long term (current) use of insulin; Z79.899 Other long term (current) drug therapy; Z88.0 Allergy status to penicillin; Z88.1 Allergy status to other antibiotic agents
CPT/HCPCS: 36415; 71045; 80053; 82550; 82553; 84484; 85025; 93005; 96372; 99284; J1200

== ENCOUNTER 2019-09-30 10:17 | Emergency (ER) | payer OTHER, MEDICAID ==
[~2019-09-30] VITALS: Ht 162.6 cm; Wt 104.3 kg
[2019-09-30 10:20] VITALS: BP_SYST 152
--- NOTE | 2019-09-30 10:20 | NUR ---
Placed in room 5 . Placed on caregiver assisted living, blood pressure machine and pulse oximeter. To gown for exam. Side rails up. Report given to KARON Walker.
--- NOTE | 2019-09-30 10:22 | NUR ---
Patient brought in by ambulance in the ED, c/o right foot pain, generalized weakness, fevers, chills, body sspasms and tremors that started at 0300 today. Patient stated she had 2 mechanical falls today. Denied any loss of consciousness. Patient is alert and oriented x3, respirations even and unlabored, speaking in full sentences. elevated BP and HR, other VSS, pain level 10/10 - Taking Morphine, no relief per patient. Informed of the wait time. Instructed to notify ED staff for any changes in condition or worsening of symptoms while waiting to be seen by a provider. Patient verbalized understanding.
[2019-09-30] MEDS ORDERED: NACL 0.9% 1,000 ML IV ONE (10:38)
[2019-09-30] MEDS ORDERED: SPIRIVA INH (10:39)
[2019-09-30] MEDS ORDERED: LORazepam 2 MG/ML VIAL IVP ONE (10:45)
[2019-09-30] MEDS ORDERED: DIPHENHYDRAMINE INJ 50 MG/ML VIAL IVP ONE (10:45)
[2019-09-30 11:06] LABS: BASOPHILS % (AUTO) 0.3 % (0.0-2.0); EOSINOPHILS # (AUTO) 0.1 K/uL (0.0-0.4); EOSINOPHILS % (AUTO) 0.6 % (0.0-4.0); HEMATOCRIT 29.1 % (36-48); HEMOGLOBIN 9.3 g/dL (12.0-16.0); LYMPHOCYTES # (AUTO) 0.6 K/uL (1.0-5.5); LYMPHOCYTES % (AUTO) 6.9 % (20.5-51.5); MEAN CORPUSCULAR HEMOGLOBIN 25 pg (27-31); MEAN CORPUSCULAR HGB CONC 32 % (32-36); MEAN CORPUSCULAR VOLUME 78 fL (79.0-98.0); MONOCYTES # (AUTO) 0.5 K/uL (0.0-1.0); MONOCYTES % (AUTO) 6.5 % (1.7-9.3); NEUTROPHILS # (AUTO) 6.9 K/uL (1.8-7.7); NEUTROPHILS % (AUTO) 85.7 % (40.0-70.0); PLATELET COUNT (AUTO) 228 K/uL (130-430); RED BLOOD CELL COUNT(AUTO) 3.75 MIL/uL (4.2-6.2); RED CELL DISTRIBUTION WIDTH 16.7 % (9.0-15.0)
--- NOTE | 2019-09-30 11:10 | NUR ---
# 20 gauge angiocath placed to RAC. Use of asceptic technique. Opsite placed over site. Blood return noted. Blood for lab drawn from site. Flushed with 10 cc of normal saline. No evidence of infiltration noted. Patient tolerated well.
--- NOTE | 2019-09-30 11:13 | NUR ---
X-ray done at bedside as ordered by Dr. Rock. Patient tolerated the procedure well.
--- NOTE | 2019-09-30 11:13 | NUR ---
Administered Benadryl and Ativan IVP as ordered by Dr. Rock. Patient tolerated the medications well. Please refer to eMAR for more details.
[2019-09-30 11:25] LABS: PROTHROMBIN TIME 9.7 SECS (9.5-12.5)
[2019-09-30 11:27] LABS: CALCIUM 8.9 mg/dL (8.4-11.0); CREATININE 1.32 mg/dL (0.55-1.30); POTASSIUM 3.8 mmol/L (3.5-5.1)
[2019-09-30 11:32] LABS: ALBUMIN 3.6 g/dL (3.4-4.8); TOTAL BILIRUBIN 0.4 mg/dL (0.0-1.0)
--- NOTE | 2019-09-30 11:42 | NUR ---
ECG done at bedside as ordered by Dr. Rock. Report given to MD. Patient tolerated the procedure well.
--- NOTE | 2019-09-30 12:23 | NUR ---
Report given and care transferred to KARON Powell.
--- NOTE | 2019-09-30 12:23 | NUR ---
Patient is sitting on a bedpan.
[2019-09-30 12:29] LABS: CKMB RELATIVE INDEX 1.1 (0.0-2.9); CREATINE KINASE MB 2.8 ng/mL (0-3.6)
--- NOTE | 2019-09-30 13:01 | NUR ---
Attempted to call next of kin that is in patients chart. Message was left with no patient information. Call back number was left for our ED. Awaiting return call. Patient has cell phone and is attempting to reach another individual that will be able to pick her up.
--- NOTE | 2019-09-30 14:04 | NUR ---
Patient given written and verbal discharge instructions and verbalizes understanding. ER MD discussed with patient the results and treatment provided. Patient in stable condition. ID arm band removed. IV discontinued as ordered by Dr. Rock. Patient tolerated the procedure well. Rx of Ativan and Motrin given. Patient educated on pain management and to follow up with PMD. Pain Scale 2/10. Opportunity for questions provided and answered. Medication side effect fact sheet provided.
[2019-09-30 14:05] VITALS: BP_SYST 138
== END 2019-09-30 14:05 | disposition home or self-care (01) ==
LOC: SED 10:17
DX: S93.601A Unspecified sprain of right foot, initial encounter (principal); R53.1 Weakness; F41.9 Anxiety disorder, unspecified; N28.9 Disorder of kidney and ureter, unspecified; I10 Essential (primary) hypertension; E03.9 Hypothyroidism, unspecified; M54.30 Sciatica, unspecified side; E11.40 Type 2 diabetes mellitus with diabetic neuropathy, unspecified; Z79.899 Other long term (current) drug therapy; Z85.850 Personal history of malignant neoplasm of thyroid; Z88.0 Allergy status to penicillin; Z88.8 Allergy status to other drugs, medicaments and biological substances; Z79.4 Long term (current) use of insulin; W18.39XA Other fall on same level, initial encounter; Y93.89 Activity, other specified; Y92.89 Other specified places as the place of occurrence of the external cause; Y99.8 Other external cause status
CPT/HCPCS: 36415; 71045; 73630; 80053; 81002; 82150; 82550; 82553; 83605; 83690; 84484; 85025; 85610; 85730; 87040; 93005; 96374; 96375; 99284; J1200; J2060; J7030

== ENCOUNTER 2020-03-24 10:16 | Emergency (ER) | payer OTHER, MEDICAID ==
[~2020-03-24] VITALS: Ht 157.5 cm; Wt 97.5 kg
[2020-03-24 10:16] VITALS: BP_SYST 161
[~2020-03-24 10:16] MED LIST changes: +SPIRIVA INH
[2020-03-24] MEDS ORDERED: KETOROLAC TROMETHAMINE 30 MG VIAL IVP ONE (11:00)
[2020-03-24 11:06] LABS: BASOPHILS % (AUTO) 0.4 % (0.0-2.0); EOSINOPHILS # (AUTO) 0.2 K/uL (0.0-0.4); EOSINOPHILS % (AUTO) 2.7 % (0.0-4.0); HEMATOCRIT 26.1 % (36-48); HEMOGLOBIN 7.8 g/dL (12.0-16.0); LYMPHOCYTES # (AUTO) 0.9 K/uL (1.0-5.5); LYMPHOCYTES % (AUTO) 14.7 % (20.5-51.5); MEAN CORPUSCULAR HEMOGLOBIN 23 pg (27-31); MEAN CORPUSCULAR HGB CONC 30 % (32-36); MEAN CORPUSCULAR VOLUME 76 fL (79.0-98.0); MONOCYTES # (AUTO) 0.6 K/uL (0.0-1.0); MONOCYTES % (AUTO) 10.1 % (1.7-9.3); NEUTROPHILS # (AUTO) 4.6 K/uL (1.8-7.7); NEUTROPHILS % (AUTO) 72.1 % (40.0-70.0); PLATELET COUNT (AUTO) 230 K/uL (130-430); RED BLOOD CELL COUNT(AUTO) 3.45 MIL/uL (4.2-6.2); RED CELL DISTRIBUTION WIDTH 17.5 % (9.0-15.0); WHITE BLOOD COUNT (AUTO) 6.4 K/uL (4.8-10.8)
[2020-03-24 11:27] LABS: CALCIUM 8.7 mg/dL (8.4-11.0); CREATININE 1.6 mg/dL (0.55-1.30); POTASSIUM 3.8 mmol/L (3.5-5.1)
[2020-03-24 11:33] LABS: ALBUMIN 3.4 g/dL (3.4-4.8); TOTAL BILIRUBIN 0.3 mg/dL (0.0-1.0)
[2020-03-24 13:57] VITALS: BP_SYST 123
== END 2020-03-24 13:57 | disposition home or self-care (01) ==
LOC: SED 10:16
DX: M62.830 Muscle spasm of back (principal); I10 Essential (primary) hypertension; E11.9 Type 2 diabetes mellitus without complications; E03.9 Hypothyroidism, unspecified; Z88.1 Allergy status to other antibiotic agents; Z88.0 Allergy status to penicillin; Z79.899 Other long term (current) drug therapy
CPT/HCPCS: 36415; 80053; 85025; 99283; J1885

== ENCOUNTER 2020-04-02 22:21 | Emergency (ER) | payer OTHER, MEDICAID ==
[~2020-04-02] VITALS: Ht 162.6 cm; Wt 99.8 kg
[2020-04-02 22:29] VITALS: BP_SYST 97
[2020-04-03 00:19] LABS: BASOPHILS % (AUTO) 0.5 % (0.0-2.0); EOSINOPHILS % (AUTO) 0.7 % (0.0-4.0); HEMATOCRIT 25.8 % (36-48); HEMOGLOBIN 7.9 g/dL (12.0-16.0); LYMPHOCYTES # (AUTO) 0.5 K/uL (1.0-5.5); LYMPHOCYTES % (AUTO) 7.3 % (20.5-51.5); MEAN CORPUSCULAR HEMOGLOBIN 23 pg (27-31); MEAN CORPUSCULAR HGB CONC 31 % (32-36); MEAN CORPUSCULAR VOLUME 75 fL (79.0-98.0); MONOCYTES # (AUTO) 0.5 K/uL (0.0-1.0); MONOCYTES % (AUTO) 7.2 % (1.7-9.3); NEUTROPHILS # (AUTO) 5.7 K/uL (1.8-7.7); NEUTROPHILS % (AUTO) 84.3 % (40.0-70.0); PLATELET COUNT (AUTO) 216 K/uL (130-430); RED BLOOD CELL COUNT(AUTO) 3.42 MIL/uL (4.2-6.2); RED CELL DISTRIBUTION WIDTH 17.8 % (9.0-15.0); WHITE BLOOD COUNT (AUTO) 6.8 K/uL (4.8-10.8)
[2020-04-03 00:33] LABS: CALCIUM 8.9 mg/dL (8.4-11.0); CREATININE 1.31 mg/dL (0.55-1.30); POTASSIUM 4.3 mmol/L (3.5-5.1)
[2020-04-03 00:48] LABS: ALBUMIN 3.3 g/dL (3.4-4.8); TOTAL BILIRUBIN 0.2 mg/dL (0.0-1.0)
--- NOTE | 2020-04-03 01:50 | NUR ---
Patient to ER bed 7 to gown for evaluation. Side rails up. Report given to KARON MARINELLI.
--- NOTE | 2020-04-03 03:00 | NUR ---
ER Dr. BRITO at bedside examining patient.
[2020-04-03] MEDS ORDERED: BACLOFEN 10 MG TABLET PO ONE (03:30)
--- NOTE | 2020-04-03 03:30 | NUR ---
Pt BIBA TO ED C/O bodyaches, muscle spasms, AMA from footscll sleepy , took morphine prior arrival No s/s of acute distress VSS Resting on gurney rails up
[2020-04-03 04:00] VITALS: BP_SYST 134
== END 2020-04-03 04:00 | disposition home or self-care (01) ==
LOC: SED 22:21 → EEVIPCON 22:21 → SED 04-03 04:00
DX: M79.18 Myalgia, other site (principal); I10 Essential (primary) hypertension; E11.40 Type 2 diabetes mellitus with diabetic neuropathy, unspecified; E03.9 Hypothyroidism, unspecified; Z85.850 Personal history of malignant neoplasm of thyroid; Z79.899 Other long term (current) drug therapy; Z79.4 Long term (current) use of insulin; Z88.0 Allergy status to penicillin; Z88.1 Allergy status to other antibiotic agents
CPT/HCPCS: 36415; 80053; 82550-TC; 83735-TC; 85025; 93005; 99284

== ENCOUNTER 2020-06-01 18:34 | Emergency (ER) | payer OTHER, MEDICAID ==
[~2020-06-01] VITALS: Ht 162.6 cm; Wt 99.3 kg
[2020-06-01 18:42] VITALS: BP_SYST 156
[2020-06-01] MEDS ORDERED: KETOROLAC TROMETHAMINE 30 MG VIAL IM ONE (19:00)
[2020-06-01] MEDS ORDERED: MORPHINE 4 MG/ML INJ. SYRINGE IM ONE (19:00)
[2020-06-01 19:40] VITALS: BP_SYST 156
== END 2020-06-01 19:40 | disposition home or self-care (01) ==
LOC: SED 18:34
DX: M77.9 Enthesopathy, unspecified (principal); I10 Essential (primary) hypertension; E11.9 Type 2 diabetes mellitus without complications; Z88.0 Allergy status to penicillin; Z88.1 Allergy status to other antibiotic agents; Z79.899 Other long term (current) drug therapy
CPT/HCPCS: 29125; 73110; 96372; 99284; J1885; J2270

== ENCOUNTER 2021-06-07 20:42 | Inpatient (IN) | payer OTHER, MEDICAID, SELFPAY ==
[~2021-06-07] VITALS: Ht 162.6 cm; Wt 94.3 kg
[2021-06-07 20:42] VITALS: BP_SYST 162
[~2021-06-07 20:42] MED LIST changes: -HYDR50TA3 PO; +HYDR50TA4 PO
--- NOTE | 2021-06-07 23:12 | NUR ---
Placed in room 01 . Placed on residential monitor, blood pressure machine and pulse oximeter. To gown for exam. Side rails up. Report given to KARON Suárez
--- NOTE | 2021-06-07 23:13 | NUR ---
X-ray on the gurney before place on bed.
--- NOTE | 2021-06-07 23:14 | NUR ---
Patient BIB by BLS/EMS. C/O fall x today. Per reported, patient walked and fell, right knee pain and right ankle pain. Patient called 911.
--- NOTE | 2021-06-07 23:29 | NUR ---
Placed on canula 6 L/min- patient had sleep apnea. Oxygen sat 66-72 % RA, - oxygen sat increase 99-100 %
--- NOTE | 2021-06-07 23:43 | NUR ---
Patient transported to radiology via gurney, accompanied by radiology and EMT.
--- NOTE | 2021-06-08 00:43 | NUR ---
Blood for labwork drawn from analyst food and beverage. Patient tolerated well.
[2021-06-08 01:02] LABS: EOSINOPHILS # (AUTO) 0.1 K/uL (0.0-0.4); EOSINOPHILS % (AUTO) 1.1 % (0.0-4.0); HEMATOCRIT 23.6 % (36-48); LYMPHOCYTES # (AUTO) 0.4 K/uL (1.0-5.5); LYMPHOCYTES % (AUTO) 5.1 % (20.5-51.5); MEAN CORPUSCULAR HEMOGLOBIN 29 pg (27-31); MEAN CORPUSCULAR HGB CONC 34 % (32-36); MEAN CORPUSCULAR VOLUME 86 fL (79.0-98.0); MONOCYTES # (AUTO) 2.1 K/uL (0.0-1.0); MONOCYTES % (AUTO) 24.7 % (1.7-9.3); NEUTROPHILS # (AUTO) 5.8 K/uL (1.8-7.7); NEUTROPHILS % (AUTO) 69.1 % (40.0-70.0); PLATELET COUNT (AUTO) 244 K/uL (130-430); RED BLOOD CELL COUNT(AUTO) 2.75 MIL/uL (4.2-6.2); RED CELL DISTRIBUTION WIDTH 13.8 % (9.0-15.0); WHITE BLOOD COUNT (AUTO) 8.3 K/uL (4.8-10.8)
[2021-06-08 01:15] LABS: ALANINE AMINOTRANSFERASE 19 U/L (12-78); ALBUMIN 2.3 g/dL (3.4-4.8); ASPARTATE AMINOTRANSFERASE 21 U/L (10-37); CALCIUM 8.5 mg/dL (8.4-11.0); CHLORIDE 93 mmol/L (98-107); CREATININE 2.05 mg/dL (0.55-1.30); GLUCOSE 149 mg/dL (70-99); POTASSIUM 4.1 mmol/L (3.5-5.1); SODIUM SERUM 130 mmol/L (136-145); TOTAL BILIRUBIN 0.3 mg/dL (0.0-1.0); UREA NITROGEN, BLOOD 30 mg/dL (8-21)
[2021-06-08 01:17] LABS: ANION GAP < 3 (5-15); GFR AFRICAN AMERICAN 31 mL/min (>90)
--- NOTE | 2021-06-08 01:45 | NUR ---
In and out cath and collected urine sample and sent to lab.
[2021-06-08 02:05] LABS: BILIRUBIN,URINE NEGATIVE (NEGATIVE); BLOOD, URINE NEGATIVE (NEGATIVE); CLARITY/URINE CLEAR (CLEAR); COLOR,URINE YELLOW (YELLOW); GLUCOSE,URINE NEGATIVE (NEGATIVE); KETONES,URINE NEGATIVE (NEGATIVE); LEUKOCYTE ESTERASE ,URINE NEGATIVE (NEGATIVE); NITRITE, URINE NEGATIVE (NEGATIVE); PH,URINE 5.5 (5.0-8.0); PROTEIN URINE NEGATIVE (NEGATIVE); UROBILINOGEN,URINE 0.2 (0.2-1.0)
[2021-06-08 02:15] LABS: BARBITURATE, URINE NEGATIVE (NEG <=200); BENZODIAZEPINE, URINE NEGATIVE (NEG <=150); COCAINE, URINE NEGATIVE (NEG <=150); METHAMPHETAMINES SCREEN,URINE NEGATIVE (NEG <=500); URINE AMPHETAMINE NEGATIVE (NEG <=500); URINE METHADONE NEGATIVE (NEG <=200)
[2021-06-08 02:16] LABS: CANNABINOID, URINE NEGATIVE (NEG <=50); OPIATE, URINE POSITIVE (NEG <=100); PHENCYCLIDINE SCREEN,URINE NEGATIVE (NEG <=25); UR TRICYCLIC ANTIDEPRESSANTS NEGATIVE (NEG <=300); URINE OXYCODONE SCREEN POSITIVE (NEG <=100); URINE PROPOXYPHENE SCREEN NEGATIVE (NEG <=300)
--- NOTE | 2021-06-08 02:46 | NUR ---
Patient resting quietly. No acute distress noted. Vital signs within normal range.
[2021-06-08] MEDS ORDERED: NACL 0.9% 1,000 ML IV ONE (03:00)
[2021-06-08] MEDS ORDERED: INSULIN ASPART 100 UNITS/ML, 10 ML VIAL (NovoLOG) SUBCUT PRN (03:15)
--- NOTE | 2021-06-08 03:48 | NUR ---
RT at bedside - and set up CPAP O2 28 %- Oxygen sat 95 % with CPAP
[2021-06-08] MEDS: NACL 0.9% 1,000 ML IV SCH ×2 (04:02→16:11)
--- NOTE | 2021-06-08 04:22 | NUR ---
Patient resting quietly. No acute distress noted. Vital signs within normal range.
--- NOTE | 2021-06-08 07:30 | NUR ---
Pt. sleeping, on CPAP O2 sat 99%.
--- NOTE | 2021-06-08 09:46 | NUR ---
Patient will be admitted to care of Admitted to tele unit. Will go to room 117A. Belongings list completed. Complete and up to date summary report printed. SBAR report given at bedside to Ana Maria with opportunity for questions.
[2021-06-08 10:00] VITALS: BP_SYST 153
--- NOTE | 2021-06-08 10:00 | NUR ---
Notes- received patient from ER, drowsy but responsive, complain of pain on her right leg upon moving to bed. has abdominal incision from her surgery in [facility]. On oxygen 4L, titrate to 3L, o2 sat at 95%. denies any shortness of breath or chest pain. complain of back pain. IVF of NS infusing at this time. oriented to call light use. will Monitor.
--- NOTE | 2021-06-08 10:26 | NUR ---
CONSULT CARDIOLOGY [facility] DR SALDAÑA [phone] S/W [facility] OFFICE
--- NOTE | 2021-06-08 11:00 | NUR ---
Notes- pt is more awake and talking. all needs meet at this time.
[2021-06-08 11:04] VITALS: BP_SYST 153
--- NOTE | 2021-06-08 11:09 | NUR ---
CONSULTATION PAGED/CALLED Reason for Consultation: [] fx of the distal fibula Person Who was Notified: [] DR ARIELA MUNROE Consulting Physician: [] DR Christopher MUNROE COVERING FOR DR Tracy DICK TILL JUN 16, 2021 Operations Architect Specialty: [] ORTHO Ordering Physician: [] DR PARDO
[2021-06-08] MEDS ORDERED: traZODone HCL 50 MG TABLET (DESYREL) PO PRN (11:30)
[2021-06-08 11:54] VITALS: BP_SYST 151
[2021-06-08] MEDS ORDERED: LACTULOSE 20 GM/30 ML UDC PO ONE (12:00)
--- NOTE | 2021-06-08 12:00 | NUR ---
Notes- Pt stated that she is legally blind, feed patient lunch. eat only 25%. drink her juice and water.
[2021-06-08] MEDS ORDERED: ACETAMINOPHEN 325 MG TABLET PO PRN (12:15)
[2021-06-08] MEDS ORDERED: NALOXONE HCL 0.4 MG/ML AMP (NARCAN) IVP PRN (12:15)
--- NOTE | 2021-06-08 12:15 | NUR ---
CONSULT NEUROLOGY ALOC ELSY DUMONT SENT TEXT TO DR MONTES
--- NOTE | 2021-06-08 12:16 | NUR ---
CONSULT NEPHROLOGY RENAL FAILURE DR ARAUJO [phone] S/W [facility]
--- NOTE | 2021-06-08 13:30 | NUR ---
Notes Patient complaining of 10/10 chronic back pain and requesting medication. Will administer Morphine and Baclofen per MD order.
[2021-06-08] MEDS: BACLOFEN 10 MG TABLET PO PRN (13:39)
[2021-06-08] MEDS: MORPHINE SULFATE 30 MG Immediate Release TABLET PO PRN ×2 (13:40→22:10)
--- NOTE | 2021-06-08 13:50 | NUR ---
Chest X-ray Radiology here to perform CXR.
[2021-06-08 14:00] LABS: TOTAL IRON BIND. CAPACITY 266 ug/dL (250-450)
--- NOTE | 2021-06-08 14:58 | NUR ---
Spoke w/ Dr Gleason-he wants a gel stirrup ankle brace for the patient. I spoke w/Jose Calix at [facility] [employer]. He stated the brace is in our store room. Item # [id number]. I left a message for Edward in materials management requesting the brace.
--- NOTE | 2021-06-08 14:58 | NUR ---
nurse case management aware of right ankle stirrup brace ( aircast).
[2021-06-08] MEDS ORDERED: metFORMIN HCL 500 MG TABLET PO SCH (15:00)
[2021-06-08] MEDS: GABAPENTIN 300 MG CAPSULE PO SCH ×2 (15:15→22:05)
[2021-06-08 15:29] VITALS: BP_SYST 147
--- NOTE | 2021-06-08 16:00 | NUR ---
Notes Patient's pain is not controlled with Morphine and Baclofen. Will administer Chandler per MD order. Changed patient and provided steffanie care for urination. Assisted patient to reposition for comfort and education provided on repositioning self to prevent skin breakdown. Bed locked in lowest position with alarm on and call light in reach, encouraged to call.
[2021-06-08] MEDS: HYDROcodone/ACETAMIN 5-325 MG TAB (NORCO/ VICODIN) PO PRN (16:07)
[2021-06-08] MEDS: INSULIN LISPRO SLIDING SCALE 100 UNITS/ML VIAL (humaLOG) SUBCUT PRN (17:01)
[2021-06-08] MEDS: LIPASE/PROTEASE/AMYLASE 1 CAP PO SCH ×2 (17:03→22:11)
--- NOTE | 2021-06-08 18:50 | NUR ---
Closing Note Patient lying in bed. States 6/10 pain on verbal scale; reports acceptable level of pain. No distress noted. Call light left within reach and bed locked in lowest position with alarm on. Encouraged to call. Will endorse to night nurse.
--- NOTE | 2021-06-08 19:30 | NUR ---
Received bedside report. Pt in bed resting. bed rails upx2. call light within reach. will continue to monitor.
[2021-06-08] MEDS ORDERED: SIMVASTATIN 40 MG TABLET PO SCH (21:00)
[2021-06-08] MEDS: cloNIDine HCL 0.1 MG TABLET PO SCH (22:06)
[2021-06-08] MEDS: LACTULOSE 20 GM/30 ML UDC PO SCH (22:07)
[2021-06-08] MEDS: DOCUSATE SODIUM 250 MG CAPSULE PO SCH (22:07)
[2021-06-08] MEDS: PRAMIPEXOLE DI-HCL 0.25 MG TABLET PO SCH (22:30)
[2021-06-08 23:00] VITALS: BP_SYST 173
[2021-06-09] VITALS (7 sets, daily range): BP systolic 118–179
[2021-06-09] MEDS: BACLOFEN 10 MG TABLET PO PRN ×3 (00:01→23:24)
[2021-06-09] MEDS: MORPHINE SULFATE 30 MG Immediate Release TABLET PO PRN ×3 (00:02→21:11)
--- NOTE | 2021-06-09 03:44 | NUR ---
pt in bed sleeping with eyes closed. pt changed throughout shift. pt co back pain. pt medicated per emar. all other needs meet. call light within reach. will continue to monitor.
[2021-06-09] MEDS: NACL 0.9% 1,000 ML IV SCH ×2 (04:06→17:24)
[2021-06-09] MEDS: HYDROcodone/ACETAMIN 5-325 MG TAB (NORCO/ VICODIN) PO PRN ×2 (04:19→23:24)
[2021-06-09] MEDS: LEVOTHYROXINE SODIUM 0.1 MG TABLET PO SCH (06:53)
[2021-06-09] MEDS: LEVOTHYROXINE SODIUM 0.075 MG TABLET PO SCH (06:53)
--- NOTE | 2021-06-09 07:02 | NUR ---
Nutrition Update Durga Scale 15 noted. Pt admitted for ALOC Diet: [facility] BMI: 35.7 kg/m2 RD to follow per nutrition care standards.
[2021-06-09 07:47] LABS: ALBUMIN 2.4 g/dL (3.4-4.8); CALCIUM 8.7 mg/dL (8.4-11.0); CREATININE 1.54 mg/dL (0.55-1.30); PHOSPHORUS 3.7 mg/dL (2.7-4.5); POTASSIUM 3.6 mmol/L (3.5-5.1); THYROID STIMULATING HORMONE 5.22 uIu/mL (0.36-3.74); TOTAL BILIRUBIN 0.4 mg/dL (0.0-1.0)
[2021-06-09 08:02] LABS: BASOPHILS % (AUTO) 0.4 % (0.0-2.0); EOSINOPHILS # (AUTO) 0.1 K/uL (0.0-0.4); EOSINOPHILS % (AUTO) 1.9 % (0.0-4.0); HEMATOCRIT 25.7 % (36-48); HEMOGLOBIN 8.5 g/dL (12.0-16.0); LYMPHOCYTES # (AUTO) 0.5 K/uL (1.0-5.5); LYMPHOCYTES % (AUTO) 9.5 % (20.5-51.5); MEAN CORPUSCULAR HEMOGLOBIN 29 pg (27-31); MEAN CORPUSCULAR HGB CONC 33 % (32-36); MEAN CORPUSCULAR VOLUME 87 fL (79.0-98.0); MONOCYTES # (AUTO) 0.4 K/uL (0.0-1.0); MONOCYTES % (AUTO) 7.5 % (1.7-9.3); NEUTROPHILS # (AUTO) 4.6 K/uL (1.8-7.7); NEUTROPHILS % (AUTO) 80.7 % (40.0-70.0); PLATELET COUNT (AUTO) 247 K/uL (130-430); RED BLOOD CELL COUNT(AUTO) 2.96 MIL/uL (4.2-6.2); RED CELL DISTRIBUTION WIDTH 13.9 % (9.0-15.0); WHITE BLOOD COUNT (AUTO) 5.8 K/uL (4.8-10.8)
[2021-06-09] MEDS ORDERED: LOSARTAN POTASSIUM 50 MG TABLET (COZAAR) PO SCH (09:00)
[2021-06-09] MEDS: ARIPiprazole 5 MG TAB PO SCH (09:14)
[2021-06-09] MEDS: FLUoxetine HCL 20 MG CAPSULE (PROzac) PO SCH (09:14)
[2021-06-09] MEDS: DOCUSATE SODIUM 250 MG CAPSULE PO SCH ×2 (09:15→21:17)
[2021-06-09] MEDS: POTASSIUM CHLORIDE 8 MEQ TABLET.SA PO SCH (09:15)
[2021-06-09] MEDS: LIPASE/PROTEASE/AMYLASE 1 CAP PO SCH ×4 (09:16→21:16)
[2021-06-09] MEDS: PANTOPRAZOLE SODIUM 40 MG TAB PO SCH (09:16)
[2021-06-09] MEDS: FUROSEMIDE 20 MG TABLET PO SCH (09:16)
[2021-06-09] MEDS: cloNIDine HCL 0.1 MG TABLET PO SCH ×2 (09:17→21:17)
[2021-06-09] MEDS: GABAPENTIN 300 MG CAPSULE PO SCH ×3 (09:17→21:17)
[2021-06-09] MEDS: LACTULOSE 20 GM/30 ML UDC PO SCH ×2 (09:27→21:16)
[2021-06-09 10:06] LABS: FERRITIN 40 ng/mL (15-150)
[2021-06-09] MEDS: SOD FERRIC GLUC COMPLEX/SUC 125 MG in NS 100 ML IV SCH (12:09)
--- NOTE | 2021-06-09 14:21 | NUR ---
CONSULTATION: REASON FOR CONSULT: FIB FX CONSULTING PHYSICIAN: SHANEKA ORDERED BY: EDVIN SPOKE WITH MICHELLE FROM OR AND DR MUNROE IS AWARE OF THE CONSULT. EXTENSION 9222
--- NOTE | 2021-06-09 14:59 | NUR ---
Referral for home health sent to [facility]
--- NOTE | 2021-06-09 15:28 | NUR ---
WOUND EVALUATION: Late note for 06/09/21 at 1528 secondary to patient care. Wound Consult received from Dr. Polanco. Thank you, Dr. Polanco, for the consult. Patient received in a [place] Bed with a mattress, awake, alert, confused. Patient is unable to turn in bed independently. Durga Score is a 15. Past Medical History: Hypertension, Diabetes Mellitus Type 2, Hypothyroidism, chronic back pain, Chronic Pain Syndrome, Bipolar disorder, Neuropathy, GERD, Morbid Obesity, Sciatica and recent Right Nephrectomy for renal cancer. Admitted with right knee and right ankle pain. Recent Labs: WBC 5.8, RBC 2.96, hemoglobin 8.5, hematocrit 25.7, BUN 26, creatinine 1.54, GFR 35, glucose 113, POC glucose 145, AST 87, ALT 35, serum total protein 5.9, albumin 2.4, TSH 5.22. No microbiology reports. Intrinsic factors that delay wound healing: Diabetes Mellitus Type 2, Hypoalbuminemia. Extrinsic factors that delay wound healing: Decreased mobility. Wound Assessment: 1. Mid Abdomen: Dehisced surgical incision from abdominal surgery, present on admission. Wound bed has 95% yellow tissue, 5% black tissue. No odor, scant yellow drainage. Periwound intact. Wound measures 4.5 cm x 1.0 cm x 0.6 cm. 2. Mid Abdomen, Inferior to Site 1: Dehisced surgical incision from abdominal surgery, present on admission. Wound bed has 80% yellow tissue, 15% black tissue, 5% pink tissue. No odor, scant yellow drainage. Periwound intact. Wound measures 6.2 cm x 1.8 cm x 0.8 cm. Recommend: Cleanse wounds with normal saline. Apply SurePrep to steffanie-wounds. Apply Venelex ointment to wound beds. Apply Steri-Strips to area in between wounds, and to superior and inferior aspects of each wound for support of incisions. Cover wounds with nonadhesive 4x4 foam dressings. Cover with ABD pad, secure with transparent dressings. Perform wound care daily, and as needed for dressing soiling or dislodgement. 3. Right Lower Abdomen: Small incision from abdominal surgery, present on admission. Wound bed has 100% yellow tissue. No odor, scant yellow drainage. Periwound intact. Wound measures 0.5 cm x 1.4 cm x 0.3 cm. Recommend: Cleanse wound with normal saline. Apply sure to steffanie-wound. Apply Venelex ointment to wound bed. Cover with 4x4 foam dressing. Perform wound care daily, and as needed for dressing soiling or dislodgement. Also recommend: Reposition patient every 2 hours with pillow support and off-load pressure areas with pillows for pressure re-distribution. Offload, elevate and float bilateral heels with pillows. Perform skin care and monitor skin integrity Q shift. Use moisture barrier cream on buttocks and other moisture susceptible areas QID and as needed for soiling. Place patient on a low air-loss mattress.
[2021-06-09] MEDS ORDERED: BALSAM PERU/CASTOR OIL 60 GM OINT...G. TP ONE (15:45)
--- NOTE | 2021-06-09 19:05 | NUR ---
pt endorsed to night RN using SBAR
--- NOTE | 2021-06-09 19:30 | NUR ---
received bedside report. pt in bed resting. pt seems restless. call light within reach. bed locked in lowest position. will continue to monitor.
[2021-06-09] MEDS: amLODIPine BESYLATE 10 MG TABLET PO SCH (21:17)
[2021-06-09] MEDS: PRAMIPEXOLE DI-HCL 0.25 MG TABLET PO SCH (21:22)
[2021-06-10 00:35] VITALS: BP_SYST 142
--- NOTE | 2021-06-10 03:15 | NUR ---
Renal ultrasound show bladder volume 1605. made aware. mcpherson cath inserted per orders. pt tolerated well. 1500 urine out put after insertion. pt asleep in bed. call light within reach. will continue to monitor.
[2021-06-10] MEDS: NACL 0.9% 1,000 ML IV SCH ×2 (06:00→17:44)
[2021-06-10] MEDS: LEVOTHYROXINE SODIUM 0.1 MG TABLET PO SCH (06:10)
[2021-06-10] MEDS: LEVOTHYROXINE SODIUM 0.075 MG TABLET PO SCH (06:10)
--- NOTE | 2021-06-10 07:01 | NUR ---
power outage. checked on patient. pt in bed resting in no distress.
[2021-06-10 07:32] LABS: BASOPHILS % (AUTO) 0.6 % (0.0-2.0); EOSINOPHILS # (AUTO) 0.1 K/uL (0.0-0.4); EOSINOPHILS % (AUTO) 1.3 % (0.0-4.0); HEMATOCRIT 25.6 % (36-48); HEMOGLOBIN 8.5 g/dL (12.0-16.0); LYMPHOCYTES # (AUTO) 0.8 K/uL (1.0-5.5); LYMPHOCYTES % (AUTO) 10.7 % (20.5-51.5); MEAN CORPUSCULAR HEMOGLOBIN 29 pg (27-31); MEAN CORPUSCULAR HGB CONC 33 % (32-36); MEAN CORPUSCULAR VOLUME 87 fL (79.0-98.0); MONOCYTES # (AUTO) 0.6 K/uL (0.0-1.0); MONOCYTES % (AUTO) 8.5 % (1.7-9.3); NEUTROPHILS # (AUTO) 5.9 K/uL (1.8-7.7); NEUTROPHILS % (AUTO) 78.9 % (40.0-70.0); PLATELET COUNT (AUTO) 249 K/uL (130-430); RED BLOOD CELL COUNT(AUTO) 2.94 MIL/uL (4.2-6.2); WHITE BLOOD COUNT (AUTO) 7.5 K/uL (4.8-10.8)
--- NOTE | 2021-06-10 07:36 | NUR ---
rn opening note patient appears to be resting breathing is equal and non labored. patient has all safety precautions in place. report was endorsed by night nurse. no other needs at this time.
[2021-06-10 08:19] LABS: ALBUMIN 2.3 g/dL (3.4-4.8); CALCIUM 8.5 mg/dL (8.4-11.0); CREATININE 1.91 mg/dL (0.55-1.30); POTASSIUM 4.3 mmol/L (3.5-5.1); TOTAL BILIRUBIN 0.3 mg/dL (0.0-1.0)
[2021-06-10] MEDS: ARIPiprazole 5 MG TAB PO SCH (08:42)
[2021-06-10 08:43] VITALS: BP_SYST 150
[2021-06-10] MEDS: LACTULOSE 20 GM/30 ML UDC PO SCH ×2 (08:46→20:22)
[2021-06-10] MEDS: MORPHINE SULFATE 30 MG Immediate Release TABLET PO PRN ×2 (08:46→22:20)
[2021-06-10] MEDS: GABAPENTIN 300 MG CAPSULE PO SCH ×3 (08:46→20:19)
[2021-06-10] MEDS: PANTOPRAZOLE SODIUM 40 MG TAB PO SCH (08:47)
[2021-06-10] MEDS: DOCUSATE SODIUM 250 MG CAPSULE PO SCH ×2 (08:47→20:21)
[2021-06-10] MEDS: FLUoxetine HCL 20 MG CAPSULE (PROzac) PO SCH (08:48)
[2021-06-10] MEDS: LIPASE/PROTEASE/AMYLASE 1 CAP PO SCH ×4 (08:48→20:21)
[2021-06-10] MEDS: POTASSIUM CHLORIDE 8 MEQ TABLET.SA PO SCH (08:48)
[2021-06-10] MEDS: FUROSEMIDE 20 MG TABLET PO SCH (08:48)
[2021-06-10] MEDS: cloNIDine HCL 0.1 MG TABLET PO SCH ×2 (08:49→20:21)
[2021-06-10] MEDS ORDERED: BALSAM PERU/CASTOR OIL 60 GM OINT...G. TP SCH (09:00)
[2021-06-10] MEDS: INSULIN LISPRO SLIDING SCALE 100 UNITS/ML VIAL (humaLOG) SUBCUT PRN ×2 (11:33→21:36)
[2021-06-10] MEDS: SOD FERRIC GLUC COMPLEX/SUC 125 MG in NS 100 ML IV SCH (11:35)
--- NOTE | 2021-06-10 11:37 | NUR ---
ACCU CHECK Addendum: 06/10/21 at 1835 by Marjorie Carpenter RN patients accu check done, coverage was given. patient has all safety precautions in place. call light is with her educated to use call light for assistance. no other needs at this time.
[2021-06-10 12:00] VITALS: BP_SYST 131
--- NOTE | 2021-06-10 12:13 | NUR ---
judit Donnelly states that patient was taking KEPPRA 250MG X 2 DAY. WOULD LIKE TO SEE IF MD WANTS TO CONTINUE. Addendum: 06/10/21 at 1833 by Marjorie Carpenter RN at nurses station informed of medication md to place orders. received orders for scd for patient
[2021-06-10] MEDS ORDERED: levETIRAcetam 500 MG TABLET PO ONE (12:45)
[2021-06-10] MEDS: HYDROcodone/ACETAMIN 5-325 MG TAB (NORCO/ VICODIN) PO PRN ×2 (13:57→20:19)
--- NOTE | 2021-06-10 15:38 | NUR ---
Spok[place] patient regarding SNF Placement-Patient refused SNF placement, she staed she will only go home w/ caregiver and nephew.
[2021-06-10 15:43] VITALS: BP_SYST 113
[2021-06-10 16:38] VITALS: BP_SYST 131
--- NOTE | 2021-06-10 16:46 | NUR ---
MEDICATION PATIENTS SCHEDULED MEDICATION GIVEN PER ORDER. PATIENT IS AWAKE AND ALERT SITTING IN BED. PATIENT'S WOUND CARE DONE PER ORDER. PATIENT EDUCATED WEB USER EXPERIENCE STRATEGIST LIGHT, CALL LIGHT IS WITH PATIENT. PATIENT HAS NO OTHER NEEDS AT THIS TIME. PATIENT SHOWS NO SIGNS OF ANY DISTRESS.
--- NOTE | 2021-06-10 18:28 | NUR ---
rn closing note patient is awake and eating dinner in bed. Patient shows no signs of any distress, breathing is equal and non labored. no signs of any distress. patient has all safety precautions in place. call light is with her educated to use call light for assistance. no other needs at this time.
--- NOTE | 2021-06-10 19:30 | NUR ---
ROUNDS PATIENT RESTING COMFORTABLY IN BED, VITALS STABLE, DENIES PAIN AT THIS TIME. ASSESSMENT DONE AND DOCUEMNTED. SEE FLOWSHEET. NEEDS ATTENDED TO. SAFETY MEASURES IN PLACED. CALL LIGHT PLACED WITHIN REACH.
[2021-06-10 20:00] VITALS: BP_SYST 161
[2021-06-10] MEDS: PRAMIPEXOLE DI-HCL 0.25 MG TABLET PO SCH (20:18)
[2021-06-10] MEDS: levETIRAcetam 500 MG TABLET PO SCH (20:20)
[2021-06-10] MEDS: amLODIPine BESYLATE 10 MG TABLET PO SCH (20:21)
--- NOTE | 2021-06-10 21:10 | NUR ---
MEDICATION DUE MEDICATIONS GIVEN SCHEDULED, TOLERATED WELL. WILL CONTINUE TO MONITOR.
--- NOTE | 2021-06-11 00:15 | NUR ---
PATIENT RESTING: Patient resting quietly. No acute distress noted. Vital signs within normal range.
[2021-06-11] MEDS: HYDROcodone/ACETAMIN 5-325 MG TAB (NORCO/ VICODIN) PO PRN (00:45)
[2021-06-11] MEDS: NACL 0.9% 1,000 ML IV SCH (06:00)
[2021-06-11] MEDS: LEVOTHYROXINE SODIUM 0.1 MG TABLET PO SCH (06:24)
[2021-06-11] MEDS: LEVOTHYROXINE SODIUM 0.075 MG TABLET PO SCH (06:24)
[2021-06-11 06:44] LABS: BASOPHILS % (AUTO) 0.6 % (0.0-2.0); EOSINOPHILS # (AUTO) 0.2 K/uL (0.0-0.4); EOSINOPHILS % (AUTO) 3.2 % (0.0-4.0); HEMATOCRIT 28.3 % (36-48); HEMOGLOBIN 9.3 g/dL (12.0-16.0); LYMPHOCYTES # (AUTO) 0.7 K/uL (1.0-5.5); LYMPHOCYTES % (AUTO) 11.9 % (20.5-51.5); MEAN CORPUSCULAR HEMOGLOBIN 28 pg (27-31); MEAN CORPUSCULAR HGB CONC 33 % (32-36); MEAN CORPUSCULAR VOLUME 86 fL (79.0-98.0); MONOCYTES # (AUTO) 0.5 K/uL (0.0-1.0); MONOCYTES % (AUTO) 7.9 % (1.7-9.3); NEUTROPHILS # (AUTO) 4.8 K/uL (1.8-7.7); NEUTROPHILS % (AUTO) 76.4 % (40.0-70.0); PLATELET COUNT (AUTO) 268 K/uL (130-430); RED BLOOD CELL COUNT(AUTO) 3.28 MIL/uL (4.2-6.2); RED CELL DISTRIBUTION WIDTH 14.1 % (9.0-15.0); WHITE BLOOD COUNT (AUTO) 6.2 K/uL (4.8-10.8)
[2021-06-11 07:19] LABS: CALCIUM 9.1 mg/dL (8.4-11.0); CREATININE 1.28 mg/dL (0.55-1.30); POTASSIUM 3.8 mmol/L (3.5-5.1)
[2021-06-11] MEDS: IPRATROPIUM BROM 0.5 MG/2.5 ML VIAL.NEB (ATROVENT) INH SCH ×3 (07:52→15:00)
[2021-06-11 07:55] VITALS: BP_SYST 150
[2021-06-11] MEDS: FLUoxetine HCL 20 MG CAPSULE (PROzac) PO SCH (08:55)
[2021-06-11] MEDS: ARIPiprazole 5 MG TAB PO SCH (08:56)
[2021-06-11] MEDS: POTASSIUM CHLORIDE 8 MEQ TABLET.SA PO SCH (08:56)
[2021-06-11] MEDS: DOCUSATE SODIUM 250 MG CAPSULE PO SCH (08:56)
[2021-06-11] MEDS: LIPASE/PROTEASE/AMYLASE 1 CAP PO SCH ×2 (08:56→14:48)
[2021-06-11] MEDS: levETIRAcetam 500 MG TABLET PO SCH (08:56)
[2021-06-11] MEDS: cloNIDine HCL 0.1 MG TABLET PO SCH (08:57)
[2021-06-11] MEDS: FUROSEMIDE 20 MG TABLET PO SCH (08:57)
[2021-06-11] MEDS: GABAPENTIN 300 MG CAPSULE PO SCH ×2 (09:08→14:54)
[2021-06-11] MEDS: PANTOPRAZOLE SODIUM 40 MG TAB PO SCH (09:08)
[2021-06-11] MEDS: MORPHINE SULFATE 30 MG Immediate Release TABLET PO PRN (09:09)
[2021-06-11 10:27] VITALS: BP_SYST 150
[2021-06-11] MEDS ORDERED: NOR10 PO (10:33)
[2021-06-11] MEDS ORDERED: LEVE500T53 PO (10:33)
[2021-06-11] MEDS ORDERED: BLOO-1360 XX (10:33)
[2021-06-11] MEDS ORDERED: DOCU250C71 PO (10:33)
[2021-06-11] MEDS: LACTULOSE 20 GM/30 ML UDC PO SCH (10:40)
[2021-06-11 12:43] VITALS: BP_SYST 150
[2021-06-11] MEDS: SOD FERRIC GLUC COMPLEX/SUC 125 MG in NS 100 ML IV SCH (14:48)
[2021-06-11 15:18] VITALS: BP_SYST 150
[2021-06-11 16:37] VITALS: BP_SYST 147
--- NOTE | 2021-06-11 19:21 | NUR ---
CARE OF THE PATIENT LATE ENTRY DUE TO PT CARE 09:30 TOOK OVER CARE OF PATIENT FROM KARON GONZALEZ. PATIENT IS LAYING IN BED IN HER LEFT SIDE. DENIES PAIN AT THIS TIME. CORONEL CATHETER DRAINING CLEAR URINE OUTPUT. PLAN OF CARE DISCUSSED WITH THE PATIENT. PT VERBALIZED UNDERSTANDING 10:00 DR DE SANTIAGO IN THE ROOM TO SEE PT. EXAMINED BY PATIENT AND INFORM PT OF PLAN FOR DISCHARGE WITH HOME HEALTH. PT VERBALIZED UNDERSTANDING. CORONEL CATHETER REMOVED. 11:30 PATIENT ASSISTED WITH AMBULATION IN THE RESTROOM ON FWW. PT HAS A AIR SOFT GEL RACHEL BRACE ON THE RIGHT LE. ABLE TO URINATE. 14:00 HOME HEALTH MADE ARRANGEMENT WITH KIRK . AYAN NOTIFIED. 16:30 WOUND CARE TO ABDOMINAL AREA DONE. PHOTOGRAPHS TAKEN. 17:10 D/C Patient Patient given medication reconciliation form and D/C instructions. Exit Care provided. Patient verbalized understanding. MD discussed with patient the results and treatment provided.PT WAS WHEELED OUT ON A WHEELCHAIR for discharge to home [facility] . Patient in stable condition, ID band removed. IV catheter removed, intact and dressing applied, no active bleeding. Patient educated on pain management. All belongings sent with patient.
== END 2021-06-11 17:10 | disposition home health service (06) | DRG 91 ==
LOC: SED 20:42 → STU 06-08 02:57
PROVIDERS: ADMIT Internal Medicine; ATTEND Internal Medicine
PROC: 5A09357 Assistance with Respiratory Ventilation, Less than 24 Consecutive Hours, Continuous Positive Airway Pressure (ICD-10-PCS; principal; 2021-06-08)
DX: G92 Toxic encephalopathy (principal); E43 Unspecified severe protein-calorie malnutrition; N17.0 Acute kidney failure with tubular necrosis; C64.1 Malignant neoplasm of right kidney, except renal pelvis; S82.831A Other fracture of upper and lower end of right fibula, initial encounter for closed fracture; E03.9 Hypothyroidism, unspecified; D64.9 Anemia, unspecified; G47.33 Obstructive sleep apnea (adult) (pediatric); E66.01 Morbid (severe) obesity due to excess calories; F31.9 Bipolar disorder, unspecified; G25.3 Myoclonus; G89.4 Chronic pain syndrome; W06.XXXA Fall from bed, initial encounter; Z20.822 Contact with and (suspected) exposure to COVID-19; I12.9 Hypertensive chronic kidney disease with stage 1 through stage 4 chronic kidney disease, or unspecified chronic kidney disease; E11.22 Type 2 diabetes mellitus with diabetic chronic kidney disease; N18.30 Chronic kidney disease, stage 3 unspecified; E11.42 Type 2 diabetes mellitus with diabetic polyneuropathy; M54.30 Sciatica, unspecified side; Z88.1 Allergy status to other antibiotic agents; Z88.0 Allergy status to penicillin; Z88.8 Allergy status to other drugs, medicaments and biological substances; Z79.4 Long term (current) use of insulin; Z79.890 Hormone replacement therapy; Z79.899 Other long term (current) drug therapy; Z85.528 Personal history of other malignant neoplasm of kidney; Z90.49 Acquired absence of other specified parts of digestive tract; Z90.710 Acquired absence of both cervix and uterus; Z90.5 Acquired absence of kidney; Z85.850 Personal history of malignant neoplasm of thyroid; Y92.009 Unspecified place in unspecified non-institutional (private) residence as the place of occurrence of the external cause; Y93.89 Activity, other specified; Y99.8 Other external cause status; T50.905A Adverse effect of unspecified drugs, medicaments and biological substances, initial encounter
CPT/HCPCS: 36415; 70450-TC; 71045; 73560-TC; 76376; 76770; 80048; 80053; 80307; 81003; 82140; 82607; 82728; 82962; 83540; 83550; 84100; 84439; 84443; 84484; 85025; 93005; 94640; 94660; 96360; 96361; 97116-GP; 97530-GP; 99285; G0378; J2274; J2916

== ENCOUNTER 2022-11-07 17:30 | Inpatient (IN) | payer OTHER, MEDICAID ==
[~2022-11-07] VITALS: Ht 162.6 cm; Wt 87.5 kg
[~2022-11-07 17:30] MED LIST changes: +BLOO-1360 XX; +DOCU250C71 PO; -GABA600T PO; -GLU500 PO; -HYDR50TA4 PO; -INSU100V SQ; -INSU300I3 SQ; +LEVE500T21 PO; -LOSA100T3 PO; -MORP15TA PO; +NOR10 PO; -POTA8TAB4 PO
[2022-11-07 17:35] VITALS: BP_SYST 131
[2022-11-07] MEDS ORDERED: ASPIRIN 81 MG TAB.CHEW PO ONE (18:00)
[2022-11-07 18:28] LABS: BASOPHILS % (AUTO) 0.3 % (0.0-2.0); EOSINOPHILS # (AUTO) 0.1 K/uL (0.0-0.4); EOSINOPHILS % (AUTO) 0.9 % (0.0-4.0); HEMATOCRIT 39.3 % (36-48); HEMOGLOBIN 13.1 g/dL (12.0-16.0); LYMPHOCYTES # (AUTO) 0.7 K/uL (1.0-5.5); LYMPHOCYTES % (AUTO) 8.7 % (20.5-51.5); MEAN CORPUSCULAR HEMOGLOBIN 30 pg (27-31); MEAN CORPUSCULAR HGB CONC 33 % (32-36); MEAN CORPUSCULAR VOLUME 91 fL (79.0-98.0); MONOCYTES # (AUTO) 0.4 K/uL (0.0-1.0); MONOCYTES % (AUTO) 5.3 % (1.7-9.3); NEUTROPHILS # (AUTO) 7.1 K/uL (1.8-7.7); NEUTROPHILS % (AUTO) 84.8 % (40.0-70.0); PLATELET COUNT (AUTO) 171 K/uL (130-430); RED BLOOD CELL COUNT(AUTO) 4.33 MIL/uL (4.2-6.2); RED CELL DISTRIBUTION WIDTH 12.9 % (9.0-15.0); WHITE BLOOD COUNT (AUTO) 8.4 K/uL (4.8-10.8)
[2022-11-07 18:38] LABS: ANION GAP 8 (5-15); CHLORIDE 101 mmol/L (98-107); CREATININE 1.85 mg/dL (0.55-1.30); GLUCOSE 229 mg/dL (70-99); UREA NITROGEN, BLOOD 48 mg/dL (8-21)
[2022-11-07 18:44] LABS: ALANINE AMINOTRANSFERASE 31 U/L (12-78); ALBUMIN 3.3 g/dL (3.4-4.8); ASPARTATE AMINOTRANSFERASE 25 U/L (10-37); TOTAL BILIRUBIN 0.6 mg/dL (0.0-1.0)
[2022-11-07] MEDS ORDERED: AZITHROMYCIN 500 MG in NS 250 ML IV ONE (20:15)
[2022-11-07] MEDS ORDERED: NACL 0.9% 1,000 ML IV ONE (20:15)
[2022-11-07] MEDS ORDERED: ALBUTEROL SULFATE 0.083% 2.5 MG/3 ML VIAL.NEB INH ONE (20:30)
[2022-11-07] MEDS ORDERED: IPRATROPIUM BROM 0.5 MG/2.5 ML VIAL.NEB (ATROVENT) INH ONE (20:30)
[2022-11-07] MEDS ORDERED: METHYLPREDNISOLONE SOD SUCC 40 MG/ML VIAL IVP ONE (20:30)
[2022-11-07] MEDS ORDERED: AZITHROMYCIN 500 MG/VIAL (ZITHROMAX) IV ONE (20:36)
[2022-11-07] MEDS ORDERED: ASPIRIN 81 MG TAB.CHEW ONE (21:35)
[2022-11-07] MEDS ORDERED: BENZ0.5T43 PO (22:08)
[2022-11-07] MEDS ORDERED: BUSP10TA3 PO (22:08)
[2022-11-07] MEDS ORDERED: ASCO500C18 PO (22:08)
[2022-11-07] MEDS ORDERED: FURO-150 PO (22:08)
[2022-11-07] MEDS ORDERED: VALS80TA2 PO (22:08)
[2022-11-07] MEDS ORDERED: POTA-197 PO (22:08)
[2022-11-07] MEDS ORDERED: GABA300S PO (22:08)
[2022-11-07] MEDS ORDERED: HYDR25TA4 PO (22:08)
[2022-11-07] MEDS ORDERED: OLAN5TAB3 PO (22:08)
[2022-11-07] MEDS ORDERED: AMLO5TAB92 PO (22:08)
[2022-11-07] MEDS ORDERED: FERR236T3 PO (22:08)
[2022-11-08 01:17] LABS: BILIRUBIN,URINE NEGATIVE (NEGATIVE); BLOOD, URINE NEGATIVE (NEGATIVE); CLARITY/URINE SL CLOUDY (CLEAR); COLOR,URINE YELLOW (YELLOW); GLUCOSE,URINE NEGATIVE (NEGATIVE); KETONES,URINE NEGATIVE (NEGATIVE); LEUKOCYTE ESTERASE ,URINE 1+ (NEGATIVE); NITRITE, URINE POSITIVE (NEGATIVE); PROTEIN URINE NEGATIVE (NEGATIVE); UROBILINOGEN,URINE 0.2 (0.2-1.0)
[2022-11-08 01:37] LABS: RBC,URINE 0-3 /HPF (0-3)
[2022-11-08 01:38] LABS: BACTERIA,URINE MANY /HPF (None Seen); WBC,URINE >100 /HPF (0-3)
[2022-11-08 02:30] VITALS: BP_SYST 113
[2022-11-08 07:55] VITALS: BP_SYST 147
[2022-11-08 08:00] VITALS: BP_SYST 147
[2022-11-08] MEDS ORDERED: NALOXONE HCL 0.4 MG/ML AMP (NARCAN) IVP PRN ×2 (10:30)
[2022-11-08] MEDS ORDERED: ONDANSETRON HCL 4 MG/2 ML VIAL IVP PRN (10:30)
[2022-11-08] MEDS ORDERED: HYDROcodone/ACETAMIN 10-325 MG TAB PO PRN (10:30)
[2022-11-08] MEDS ORDERED: ACETAMINOPHEN 325 MG TABLET PO PRN (10:30)
[2022-11-08] MEDS ORDERED: HYDROcodone/ACETAMIN 5-325 MG TAB (NORCO/ VICODIN) PO PRN (10:30)
[2022-11-08] MEDS ORDERED: NON-FORMULARY MEDICATION (Levothyroxine Sodium 175 MCG) PO SCH (10:30)
[2022-11-08] MEDS ORDERED: HYDROCHLOROTHIAZIDE 25 MG TABLET (HCTZ) PO ONE (11:30)
[2022-11-08] MEDS ORDERED: LEVOTHYROXINE SODIUM 0.075 MG TABLET PO ONE (11:30)
[2022-11-08] MEDS ORDERED: LOSARTAN POTASSIUM 50 MG TABLET (COZAAR) PO ONE (11:30)
[2022-11-08] MEDS ORDERED: PANTOPRAZOLE SODIUM 40 MG TAB PO ONE (11:30)
[2022-11-08] MEDS ORDERED: amLODIPine BESYLATE 5 MG TABLET PO ONE (11:30)
[2022-11-08] MEDS ORDERED: FUROSEMIDE 20 MG TABLET PO ONE (11:30)
[2022-11-08] MEDS ORDERED: OLANZapine 5 MG TABLET PO ONE (11:30)
[2022-11-08] MEDS ORDERED: FLUoxetine HCL 20 MG CAPSULE (PROzac) PO ONE (11:30)
[2022-11-08] MEDS ORDERED: POTASSIUM CHLORIDE 20 MEQ TAB.PRT.SR PO ONE (11:30)
[2022-11-08 11:42] VITALS: BP_SYST 154
[2022-11-08] MEDS ORDERED: busPIRone HCL 5 MG TABLET ONE (12:02)
[2022-11-08] MEDS: INSULIN REGULAR, HUMAN 100 UNITS/ML, 3 ML VIAL (humuLIN R) SUBCUT PRN (12:14)
[2022-11-08] MEDS: PROTEASE PO SCH ×3 (13:00→21:00)
[2022-11-08] MEDS: AMYLASE PO SCH ×3 (13:00→21:00)
[2022-11-08] MEDS: LIPASE PO SCH ×3 (13:00→21:00)
[2022-11-08] MEDS ORDERED: DOXYCYCLINE HYCLATE 100 MG CAPSULE PO ONE (14:00)
[2022-11-08] MEDS: GABAPENTIN 300 MG CAPSULE PO SCH ×2 (14:59→20:46)
[2022-11-08 15:56] VITALS: BP_SYST 148
[2022-11-08] MEDS ORDERED: MOXI3DRO13 OP (19:40)
[2022-11-08] MEDS ORDERED: MORP15TA PO (19:44)
[2022-11-08 20:00] VITALS: BP_SYST 158
[2022-11-08] MEDS: busPIRone HCL 5 MG TABLET PO SCH (20:47)
[2022-11-08] MEDS: BENZTROPINE MESYLATE 1 MG TABLET PO SCH (20:47)
[2022-11-08] MEDS: cloNIDine HCL 0.1 MG TABLET PO SCH (20:47)
[2022-11-08] MEDS: DOCUSATE SODIUM 250 MG CAPSULE PO SCH (20:48)
[2022-11-08] MEDS: levETIRAcetam 500 MG TABLET PO SCH (20:48)
[2022-11-08] MEDS: DOXYCYCLINE HYCLATE 100 MG CAPSULE PO SCH (20:48)
[2022-11-09] VITALS: BP_SYST 145
[2022-11-09] MEDS: LORazepam 2 MG/ML VIAL IVP PRN ×3 (00:13→21:28)
[2022-11-09 07:35] LABS: BASOPHILS % (AUTO) 0.3 % (0.0-2.0); EOSINOPHILS # (AUTO) 0.1 K/uL (0.0-0.4); EOSINOPHILS % (AUTO) 1.5 % (0.0-4.0); HEMATOCRIT 36.6 % (36-48); HEMOGLOBIN 12.8 g/dL (12.0-16.0); LYMPHOCYTES # (AUTO) 0.8 K/uL (1.0-5.5); LYMPHOCYTES % (AUTO) 12.6 % (20.5-51.5); MEAN CORPUSCULAR HEMOGLOBIN 31 pg (27-31); MEAN CORPUSCULAR HGB CONC 35 % (32-36); MEAN CORPUSCULAR VOLUME 88 fL (79.0-98.0); MONOCYTES # (AUTO) 0.4 K/uL (0.0-1.0); MONOCYTES % (AUTO) 6.7 % (1.7-9.3); NEUTROPHILS # (AUTO) 5.3 K/uL (1.8-7.7); NEUTROPHILS % (AUTO) 78.9 % (40.0-70.0); PLATELET COUNT (AUTO) 155 K/uL (130-430); RED BLOOD CELL COUNT(AUTO) 4.17 MIL/uL (4.2-6.2); RED CELL DISTRIBUTION WIDTH 12.5 % (9.0-15.0); WHITE BLOOD COUNT (AUTO) 6.7 K/uL (4.8-10.8)
[2022-11-09 07:54] LABS: ALANINE AMINOTRANSFERASE 30 U/L (12-78); ALBUMIN 3.1 g/dL (3.4-4.8); ANION GAP 9 (5-15); ASPARTATE AMINOTRANSFERASE 27 U/L (10-37); CALCIUM 9.1 mg/dL (8.4-11.0); CHLORIDE 103 mmol/L (98-107); CREATININE 1.23 mg/dL (0.55-1.30); GLUCOSE 160 mg/dL (70-99); PHOSPHORUS 2.5 mg/dL (2.7-4.5); TOTAL BILIRUBIN 0.8 mg/dL (0.0-1.0); UREA NITROGEN, BLOOD 43 mg/dL (8-21)
[2022-11-09] MEDS: LIPASE PO SCH ×4 (09:00→20:16)
[2022-11-09] MEDS: PROTEASE PO SCH ×4 (09:00→20:16)
[2022-11-09] MEDS: AMYLASE PO SCH ×4 (09:00→20:16)
[2022-11-09 10:20] VITALS: BP_SYST 186
[2022-11-09] MEDS: DOXYCYCLINE HYCLATE 100 MG CAPSULE PO SCH ×2 (10:22→20:18)
[2022-11-09] MEDS: FERROUS SULFATE 325 MG TABLET.DR PO SCH (10:22)
[2022-11-09] MEDS: BENZTROPINE MESYLATE 1 MG TABLET PO SCH ×2 (10:22→20:18)
[2022-11-09] MEDS: DOCUSATE SODIUM 250 MG CAPSULE PO SCH ×2 (10:22→20:18)
[2022-11-09] MEDS: GABAPENTIN 300 MG CAPSULE PO SCH ×3 (10:23→20:17)
[2022-11-09] MEDS: busPIRone HCL 5 MG TABLET PO SCH ×2 (10:23→20:18)
[2022-11-09] MEDS: LEVOTHYROXINE SODIUM 0.075 MG TABLET PO SCH (10:23)
[2022-11-09] MEDS: levETIRAcetam 500 MG TABLET PO SCH ×2 (10:23→20:18)
[2022-11-09] MEDS: OLANZapine 5 MG TABLET PO SCH (10:23)
[2022-11-09] MEDS: FLUoxetine HCL 20 MG CAPSULE (PROzac) PO SCH (10:23)
[2022-11-09] MEDS: ASCORBIC ACID 500 MG TABLET PO SCH (10:24)
[2022-11-09] MEDS: POTASSIUM CHLORIDE 20 MEQ TAB.PRT.SR PO SCH (10:24)
[2022-11-09] MEDS: PANTOPRAZOLE SODIUM 40 MG TAB PO SCH (10:24)
[2022-11-09] MEDS: amLODIPine BESYLATE 5 MG TABLET PO SCH (10:32)
[2022-11-09] MEDS: FUROSEMIDE 20 MG TABLET PO SCH (10:32)
[2022-11-09] MEDS: HYDROCHLOROTHIAZIDE 25 MG TABLET (HCTZ) PO SCH (10:32)
[2022-11-09] MEDS: cloNIDine HCL 0.1 MG TABLET PO SCH ×2 (10:33→20:18)
[2022-11-09] MEDS: LOSARTAN POTASSIUM 50 MG TABLET (COZAAR) PO SCH (10:33)
[2022-11-09] MEDS: ALBUTEROL SULFATE 0.083% 2.5 MG/3 ML VIAL.NEB INH SCH ×4 (11:28→23:55)
[2022-11-09] MEDS: IPRATROPIUM BROM 0.5 MG/2.5 ML VIAL.NEB (ATROVENT) INH SCH ×4 (11:28→23:55)
[2022-11-09 11:40] VITALS: BP_SYST 131
[2022-11-09] MEDS: INSULIN REGULAR, HUMAN 100 UNITS/ML, 3 ML VIAL (humuLIN R) SUBCUT PRN ×2 (11:49→20:16)
[2022-11-09 16:25] VITALS: BP_SYST 155
[2022-11-09 20:00] VITALS: BP_SYST 120
[2022-11-09] MEDS: PREDNISOLONE OP SCH (20:17)
[2022-11-09] MEDS: MOXIFLOXACIN OP SCH (20:19)
[2022-11-10] VITALS: BP_SYST 118
[2022-11-10] MEDS: IPRATROPIUM BROM 0.5 MG/2.5 ML VIAL.NEB (ATROVENT) INH SCH ×6 (03:44→23:06)
[2022-11-10] MEDS: ALBUTEROL SULFATE 0.083% 2.5 MG/3 ML VIAL.NEB INH SCH ×6 (03:44→23:05)
[2022-11-10 06:29] LABS: BASOPHILS % (AUTO) 0.2 % (0.0-2.0); EOSINOPHILS # (AUTO) 0.1 K/uL (0.0-0.4); EOSINOPHILS % (AUTO) 1.2 % (0.0-4.0); HEMATOCRIT 41.9 % (36-48); HEMOGLOBIN 14.2 g/dL (12.0-16.0); LYMPHOCYTES # (AUTO) 0.9 K/uL (1.0-5.5); LYMPHOCYTES % (AUTO) 12.5 % (20.5-51.5); MEAN CORPUSCULAR HEMOGLOBIN 30 pg (27-31); MEAN CORPUSCULAR HGB CONC 34 % (32-36); MEAN CORPUSCULAR VOLUME 89 fL (79.0-98.0); MONOCYTES # (AUTO) 0.6 K/uL (0.0-1.0); MONOCYTES % (AUTO) 8.2 % (1.7-9.3); NEUTROPHILS # (AUTO) 5.6 K/uL (1.8-7.7); NEUTROPHILS % (AUTO) 77.9 % (40.0-70.0); PLATELET COUNT (AUTO) 164 K/uL (130-430); RED CELL DISTRIBUTION WIDTH 12.7 % (9.0-15.0); WHITE BLOOD COUNT (AUTO) 7.2 K/uL (4.8-10.8)
[2022-11-10 07:11] LABS: ALANINE AMINOTRANSFERASE 31 U/L (12-78); ALBUMIN 3.3 g/dL (3.4-4.8); ANION GAP 10 (5-15); ASPARTATE AMINOTRANSFERASE 26 U/L (10-37); CALCIUM 9.5 mg/dL (8.4-11.0); CHLORIDE 101 mmol/L (98-107); GLUCOSE 199 mg/dL (70-99); PHOSPHORUS 2.8 mg/dL (2.7-4.5); TOTAL BILIRUBIN 0.6 mg/dL (0.0-1.0); UREA NITROGEN, BLOOD 42 mg/dL (8-21)
[2022-11-10 07:12] LABS: C-REACTIVE PROTEIN QUANT < 0.2 mg/dL (0-0.5)
[2022-11-10 07:16] LABS: ERYTHROCYTE SEDIMENTATION RATE 32 MM/HR (0-20)
[2022-11-10 08:00] VITALS: BP_SYST 151
[2022-11-10] MEDS: GABAPENTIN 300 MG CAPSULE PO SCH ×3 (09:00→21:12)
[2022-11-10] MEDS: busPIRone HCL 5 MG TABLET PO SCH ×2 (09:39→21:16)
[2022-11-10] MEDS: ASCORBIC ACID 500 MG TABLET PO SCH (09:40)
[2022-11-10] MEDS: cloNIDine HCL 0.1 MG TABLET PO SCH ×2 (09:49→21:15)
[2022-11-10] MEDS: BENZTROPINE MESYLATE 1 MG TABLET PO SCH ×2 (09:49→21:16)
[2022-11-10] MEDS: DOCUSATE SODIUM 250 MG CAPSULE PO SCH ×2 (09:50→21:14)
[2022-11-10] MEDS: LOSARTAN POTASSIUM 50 MG TABLET (COZAAR) PO SCH (09:51)
[2022-11-10] MEDS: HYDROCHLOROTHIAZIDE 25 MG TABLET (HCTZ) PO SCH (09:52)
[2022-11-10] MEDS: FERROUS SULFATE 325 MG TABLET.DR PO SCH (09:52)
[2022-11-10] MEDS: levETIRAcetam 500 MG TABLET PO SCH ×2 (09:53→21:12)
[2022-11-10] MEDS: FUROSEMIDE 20 MG TABLET PO SCH (09:53)
[2022-11-10] MEDS: amLODIPine BESYLATE 5 MG TABLET PO SCH (09:55)
[2022-11-10] MEDS: LEVOTHYROXINE SODIUM 0.075 MG TABLET PO SCH (09:55)
[2022-11-10] MEDS: PANTOPRAZOLE SODIUM 40 MG TAB PO SCH (09:55)
[2022-11-10] MEDS: DOXYCYCLINE HYCLATE 100 MG CAPSULE PO SCH ×2 (09:56→21:12)
[2022-11-10] MEDS: OLANZapine 5 MG TABLET PO SCH (09:56)
[2022-11-10] MEDS: FLUoxetine HCL 20 MG CAPSULE (PROzac) PO SCH (10:00)
[2022-11-10 11:20] VITALS: BP_SYST 122
[2022-11-10 12:06] LABS: MICROALBUMIN URINE RANDOM 10.3 ug/mL (Not Estab.)
[2022-11-10] MEDS: POTASSIUM CHLORIDE 20 MEQ TAB.PRT.SR PO SCH (12:54)
[2022-11-10] MEDS: INSULIN REGULAR, HUMAN 100 UNITS/ML, 3 ML VIAL (humuLIN R) SUBCUT PRN ×3 (12:58→21:42)
[2022-11-10 16:25] VITALS: BP_SYST 145
[2022-11-10] MEDS: PROTEASE PO SCH ×4 (16:58→21:18)
[2022-11-10] MEDS: LIPASE PO SCH ×4 (16:58→21:18)
[2022-11-10] MEDS: AMYLASE PO SCH ×4 (16:58→21:18)
[2022-11-10] MEDS: PREDNISOLONE OP SCH ×3 (16:59→21:21)
[2022-11-10] MEDS: MOXIFLOXACIN OP SCH ×3 (16:59→21:22)
[2022-11-10 20:00] VITALS: BP_SYST 111
[2022-11-10] MEDS: LORazepam 2 MG/ML VIAL IVP PRN (22:44)
[2022-11-11 00:50] VITALS: BP_SYST 99
[2022-11-11] MEDS: IPRATROPIUM BROM 0.5 MG/2.5 ML VIAL.NEB (ATROVENT) INH SCH ×4 (03:30→15:12)
[2022-11-11] MEDS: ALBUTEROL SULFATE 0.083% 2.5 MG/3 ML VIAL.NEB INH SCH ×4 (03:30→15:12)
[2022-11-11 06:30] LABS: BASOPHILS % (AUTO) 0.4 % (0.0-2.0); EOSINOPHILS # (AUTO) 0.1 K/uL (0.0-0.4); EOSINOPHILS % (AUTO) 1.7 % (0.0-4.0); HEMATOCRIT 43.9 % (36-48); HEMOGLOBIN 14.9 g/dL (12.0-16.0); LYMPHOCYTES # (AUTO) 1.2 K/uL (1.0-5.5); LYMPHOCYTES % (AUTO) 16.5 % (20.5-51.5); MEAN CORPUSCULAR HEMOGLOBIN 30 pg (27-31); MEAN CORPUSCULAR HGB CONC 34 % (32-36); MEAN CORPUSCULAR VOLUME 89 fL (79.0-98.0); MONOCYTES # (AUTO) 0.7 K/uL (0.0-1.0); MONOCYTES % (AUTO) 9.2 % (1.7-9.3); NEUTROPHILS # (AUTO) 5.4 K/uL (1.8-7.7); NEUTROPHILS % (AUTO) 72.2 % (40.0-70.0); PLATELET COUNT (AUTO) 183 K/uL (130-430); RED BLOOD CELL COUNT(AUTO) 4.92 MIL/uL (4.2-6.2); WHITE BLOOD COUNT (AUTO) 7.4 K/uL (4.8-10.8)
[2022-11-11] MEDS: INSULIN REGULAR, HUMAN 100 UNITS/ML, 3 ML VIAL (humuLIN R) SUBCUT PRN (06:40)
[2022-11-11 07:02] LABS: ANION GAP 11 (5-15); CALCIUM 9.9 mg/dL (8.4-11.0); CHLORIDE 100 mmol/L (98-107); CREATININE 1.44 mg/dL (0.55-1.30); GLUCOSE 176 mg/dL (70-99); PHOSPHORUS 3.8 mg/dL (2.7-4.5); UREA NITROGEN, BLOOD 46 mg/dL (8-21)
[2022-11-11 07:04] LABS: C-REACTIVE PROTEIN QUANT < 0.2 mg/dL (0-0.5)
[2022-11-11 07:33] LABS: ERYTHROCYTE SEDIMENTATION RATE 34 MM/HR (0-20)
[2022-11-11 08:00] VITALS: BP_SYST 143
[2022-11-11] MEDS: FERROUS SULFATE 325 MG TABLET.DR PO SCH (08:46)
[2022-11-11] MEDS: DOCUSATE SODIUM 250 MG CAPSULE PO SCH (08:46)
[2022-11-11] MEDS: cloNIDine HCL 0.1 MG TABLET PO SCH (08:47)
[2022-11-11] MEDS: busPIRone HCL 5 MG TABLET PO SCH (08:48)
[2022-11-11] MEDS: BENZTROPINE MESYLATE 1 MG TABLET PO SCH (08:48)
[2022-11-11] MEDS: FLUoxetine HCL 20 MG CAPSULE (PROzac) PO SCH (08:48)
[2022-11-11] MEDS: ASCORBIC ACID 500 MG TABLET PO SCH (08:49)
[2022-11-11] MEDS: DOXYCYCLINE HYCLATE 100 MG CAPSULE PO SCH (08:49)
[2022-11-11] MEDS: amLODIPine BESYLATE 5 MG TABLET PO SCH (08:49)
[2022-11-11] MEDS: GABAPENTIN 300 MG CAPSULE PO SCH (09:01)
[2022-11-11] MEDS: OLANZapine 5 MG TABLET PO SCH (09:01)
[2022-11-11] MEDS: PANTOPRAZOLE SODIUM 40 MG TAB PO SCH (09:01)
[2022-11-11] MEDS: levETIRAcetam 500 MG TABLET PO SCH (09:02)
[2022-11-11] MEDS: FUROSEMIDE 20 MG TABLET PO SCH (09:02)
[2022-11-11] MEDS: POTASSIUM CHLORIDE 20 MEQ TAB.PRT.SR PO SCH (09:02)
[2022-11-11] MEDS: HYDROCHLOROTHIAZIDE 25 MG TABLET (HCTZ) PO SCH (09:03)
[2022-11-11] MEDS: LEVOTHYROXINE SODIUM 0.075 MG TABLET PO SCH (09:03)
[2022-11-11] MEDS: LOSARTAN POTASSIUM 50 MG TABLET (COZAAR) PO SCH (09:04)
[2022-11-11] MEDS: PREDNISOLONE OP SCH (10:15)
[2022-11-11] MEDS: MOXIFLOXACIN OP SCH (10:17)
[2022-11-11] MEDS ORDERED: DOXY100C5 PO (12:46)
[2022-11-11 12:58] VITALS: BP_SYST 132
[2022-11-11] MEDS: LIPASE PO SCH (13:50)
[2022-11-11] MEDS: AMYLASE PO SCH (13:50)
[2022-11-11] MEDS: PROTEASE PO SCH (13:50)
== END 2022-11-11 15:50 | disposition home or self-care (01) | DRG 871 ==
LOC: SED 17:30 → STU 20:29 → SMU 11-11 05:35
PROVIDERS: ADMIT Preventive Medicine Preventive Medicine/Occupational Environmental Medicine; ATTEND Preventive Medicine Preventive Medicine/Occupational Environmental Medicine
DX: A41.9 Sepsis, unspecified organism (principal); J18.9 Pneumonia, unspecified organism; J96.01 Acute respiratory failure with hypoxia; N17.0 Acute kidney failure with tubular necrosis; N39.0 Urinary tract infection, site not specified; J44.0 Chronic obstructive pulmonary disease with (acute) lower respiratory infection; G93.49 Other encephalopathy; F31.30 Bipolar disorder, current episode depressed, mild or moderate severity, unspecified; E03.9 Hypothyroidism, unspecified; F41.9 Anxiety disorder, unspecified; Z77.22 Contact with and (suspected) exposure to environmental tobacco smoke (acute) (chronic); G89.4 Chronic pain syndrome; M54.30 Sciatica, unspecified side; Z20.822 Contact with and (suspected) exposure to COVID-19; E11.40 Type 2 diabetes mellitus with diabetic neuropathy, unspecified; E11.65 Type 2 diabetes mellitus with hyperglycemia; E11.21 Type 2 diabetes mellitus with diabetic nephropathy; I10 Essential (primary) hypertension; B96.89 Other specified bacterial agents as the cause of diseases classified elsewhere; E88.09 Other disorders of plasma-protein metabolism, not elsewhere classified; E87.6 Hypokalemia; Z90.49 Acquired absence of other specified parts of digestive tract; Z85.850 Personal history of malignant neoplasm of thyroid; Z88.8 Allergy status to other drugs, medicaments and biological substances; Z79.899 Other long term (current) drug therapy
CPT/HCPCS: 36415; 36600; 71045; 76770; 80048; 80053; 81000; 82043; 82570; 82803-TC; 83735; 83880; 84100; 84302; 84484; 84560; 85025; 85379; 85651-TC; 86140; 87040; 87086; 93005; 93306; 94640; 94760; 96365; 96375; 97112-GP; 97116-GP; 97530-GP; 99285; G0378; J0456; J1030; J1815; J2060; J7613

== ENCOUNTER 2023-02-23 05:12 | Emergency (ER) | payer OTHER, MEDICAID ==
[~2023-02-23] VITALS: Ht 160 cm; Wt 77.1 kg
[~2023-02-23 05:12] MED LIST changes: +AMLO5TAB92 PO; -ARIP10TA9 PO; +ASCO500C18 PO; -BACL20TA PO; +BENZ0.5T43 PO; +BUSP10TA3 PO; +DOXY100C5 PO; +FERR236T3 PO; +GABA300S PO; +HYDR25TA4 PO; +MORP15TA PO; +MOXI3DRO13 OP; -NOR10 PO; +OLAN5TAB3 PO; +POTA-197 PO; -PRAM0.122 PO; -SIMV40TA2 PO; -SPIRIVA INH; -TRAZ-250 PO; +VALS80TA2 PO
[2023-02-23 05:21] VITALS: BP_SYST 167
[2023-02-23] MEDS ORDERED: MORPHINE 4 MG INJ. 4 MG/ML VIAL IVP ONE (05:30)
[2023-02-23] MEDS ORDERED: NACL 0.9% 1,000 ML IV ONE (05:30)
[2023-02-23 06:10] LABS: BASOPHILS % (AUTO) 0.2 % (0.0-2.0); EOSINOPHILS % (AUTO) 0.2 % (0.0-4.0); HEMATOCRIT 39.9 % (36-48); HEMOGLOBIN 13.5 g/dL (12.0-16.0); LYMPHOCYTES # (AUTO) 0.7 K/uL (1.0-5.5); MEAN CORPUSCULAR HEMOGLOBIN 29 pg (27-31); MEAN CORPUSCULAR HGB CONC 34 % (32-36); MEAN CORPUSCULAR VOLUME 87 fL (79.0-98.0); MONOCYTES # (AUTO) 0.8 K/uL (0.0-1.0); MONOCYTES % (AUTO) 6.3 % (1.7-9.3); NEUTROPHILS # (AUTO) 10.7 K/uL (1.8-7.7); NEUTROPHILS % (AUTO) 87.3 % (40.0-70.0); PLATELET COUNT (AUTO) 242 K/uL (130-430); RED CELL DISTRIBUTION WIDTH 12.6 % (9.0-15.0); WHITE BLOOD COUNT (AUTO) 12.3 K/uL (4.8-10.8)
[2023-02-23 06:27] LABS: ANION GAP 14 (5-15); CALCIUM 9.1 mg/dL (8.4-11.0); CHLORIDE 93 mmol/L (98-107); CREATININE 1.18 mg/dL (0.55-1.30); GLUCOSE 202 mg/dL (70-99); UREA NITROGEN, BLOOD 30 mg/dL (8-21)
[2023-02-23 06:32] LABS: ALANINE AMINOTRANSFERASE 35 U/L (12-78); ALBUMIN 3.5 g/dL (3.4-4.8); ASPARTATE AMINOTRANSFERASE 25 U/L (10-37); TOTAL BILIRUBIN 0.9 mg/dL (0.0-1.0)
[2023-02-23 08:01] LABS: BILIRUBIN,URINE NEGATIVE (NEGATIVE); BLOOD, URINE TRACE (NEGATIVE); CLARITY/URINE SLIGHTLY HAZY (CLEAR); COLOR,URINE YELLOW (YELLOW); GLUCOSE,URINE NEGATIVE (NEGATIVE); KETONES,URINE 1+ (NEGATIVE); LEUKOCYTE ESTERASE ,URINE NEGATIVE (NEGATIVE); NITRITE, URINE NEGATIVE (NEGATIVE); PROTEIN URINE TRACE (NEGATIVE); UROBILINOGEN,URINE 0.2 (0.2-1.0)
[2023-02-23 08:13] LABS: BACTERIA,URINE FEW /HPF (None Seen); RBC,URINE 0-3 /HPF (0-3); WBC,URINE NONE SEEN /HPF (0-3)
[2023-02-23 08:36] VITALS: BP_SYST 167
[2023-02-24] MEDS ORDERED: TRAM50TA2 PO (14:22)
[2023-02-24] MEDS ORDERED: PRAM1TAB5 PO (14:22)
[2023-02-24] MEDS ORDERED: TRAZ-251 PO (14:22)
== END 2023-02-23 08:06 | disposition home or self-care (01) ==
LOC: SED 05:12
DX: T50.3X1A Poisoning by electrolytic, caloric and water-balance agents, accidental (unintentional), initial encounter (principal); E11.9 Type 2 diabetes mellitus without complications; I10 Essential (primary) hypertension; Z88.0 Allergy status to penicillin; Z88.1 Allergy status to other antibiotic agents; Z88.8 Allergy status to other drugs, medicaments and biological substances; Z79.899 Other long term (current) drug therapy; Y92.89 Other specified places as the place of occurrence of the external cause
CPT/HCPCS: 99285; 74176; 96374; 96361; 80053; 81000; 85025; 87040; 36415; 76376; 83605; J2270; J7030

== ENCOUNTER 2023-02-24 11:15 | Inpatient (IN) | payer OTHER, MEDICAID ==
[~2023-02-24] VITALS: Ht 162.6 cm; Wt 82.6 kg
[2023-02-24 11:21] VITALS: BP_SYST 161
--- NOTE | 2023-02-24 11:35 | NUR ---
Pt brought by telephonic nurse case manager from home , pt presents to ER for medical clearance, per telephonic nurse case manager pt was discharge from [facility] to her apartment but pt is not taking her medications, pt is blind and with extensive medical history, VSS, respirations even and unlabored , cap refill <3, will cont to monitor.
[2023-02-24 12:27] LABS: BILIRUBIN,URINE NEGATIVE (NEGATIVE); CLARITY/URINE CLEAR (CLEAR); COLOR,URINE YELLOW (YELLOW); GLUCOSE,URINE 2+ (NEGATIVE); KETONES,URINE NEGATIVE (NEGATIVE); LEUKOCYTE ESTERASE ,URINE NEGATIVE (NEGATIVE); NITRITE, URINE NEGATIVE (NEGATIVE); PROTEIN URINE TRACE (NEGATIVE); UROBILINOGEN,URINE 0.2 (0.2-1.0)
[2023-02-24 12:31] LABS: BLOOD, URINE TRACE (NEGATIVE)
[2023-02-24 12:33] LABS: BASOPHILS % (AUTO) 0.3 % (0.0-2.0); EOSINOPHILS % (AUTO) 0.3 % (0.0-4.0); HEMATOCRIT 38.7 % (36-48); HEMOGLOBIN 13.6 g/dL (12.0-16.0); LYMPHOCYTES # (AUTO) 0.9 K/uL (1.0-5.5); LYMPHOCYTES % (AUTO) 7.3 % (20.5-51.5); MEAN CORPUSCULAR HEMOGLOBIN 31 pg (27-31); MEAN CORPUSCULAR HGB CONC 35 % (32-36); MEAN CORPUSCULAR VOLUME 88 fL (79.0-98.0); MONOCYTES # (AUTO) 0.9 K/uL (0.0-1.0); NEUTROPHILS # (AUTO) 10.6 K/uL (1.8-7.7); NEUTROPHILS % (AUTO) 85.1 % (40.0-70.0); PLATELET COUNT (AUTO) 260 K/uL (130-430); RED BLOOD CELL COUNT(AUTO) 4.41 MIL/uL (4.2-6.2); RED CELL DISTRIBUTION WIDTH 12.5 % (9.0-15.0); WHITE BLOOD COUNT (AUTO) 12.5 K/uL (4.8-10.8)
[2023-02-24 12:43] LABS: ANION GAP 8 (5-15); CALCIUM 8.3 mg/dL (8.4-11.0); CHLORIDE 99 mmol/L (98-107); CREATININE 1.14 mg/dL (0.55-1.30); GLUCOSE 234 mg/dL (70-99); UREA NITROGEN, BLOOD 29 mg/dL (8-21)
[2023-02-24 12:45] LABS: INR 1.1 (0.8-1.2); PROTHROMBIN TIME 10.9 SECS (9.5-12.5)
[2023-02-24 12:48] LABS: ALANINE AMINOTRANSFERASE 35 U/L (12-78); ALBUMIN 3.4 g/dL (3.4-4.8); ASPARTATE AMINOTRANSFERASE 18 U/L (10-37); C-REACTIVE PROTEIN QUANT 0.3 mg/dL (0-0.5); TOTAL BILIRUBIN 0.3 mg/dL (0.0-1.0)
[2023-02-24 12:51] LABS: BACTERIA,URINE None Seen /HPF (None Seen); WBC,URINE 0-3 /HPF (0-3)
--- NOTE | 2023-02-24 13:03 | NUR ---
Patient to ER bed 07 to gown for evaluation. Side rails up. Report given to Amarilis BRANTLEY
[2023-02-24 13:09] LABS: ACETONE, SERUM NEGATIVE (NEGATIVE)
--- NOTE | 2023-02-24 14:07 | NUR ---
Admit bed requested Patient will be admitted to care of . Admitted to MEDSUR unit. Diagnosis EXACERBATION PARKINSONS Inpatient (Yes or No) Y Observation (Yes or No) N Orientation concerns or request close to nursing station (Yes or No) N Covid Status N/A On vent or bipap N Isolation requirements N Needs a sitter N From Home (Yes or if No enter name of facility) [facility] Requires Dialysis (Yes or No) N Med Rec Completed (Yes of No) Y
[2023-02-24] MEDS ORDERED: PRAM1TAB5 PO (14:22)
[2023-02-24] MEDS ORDERED: TRAZ-251 PO (14:22)
[2023-02-24] MEDS ORDERED: TRAM50TA2 PO (14:22)
[2023-02-24] MEDS ORDERED: LORazepam 2 MG/ML VIAL IVP ONE (14:45)
--- NOTE | 2023-02-24 15:50 | NUR ---
# 20 gauge angiocath placed to L HAND. Use of asceptic technique. Opsite placed over site. Blood return noted. Blood for lab drawn from site. Flushed with 10 cc of normal saline. No evidence of infiltration noted. Patient tolerated well.
--- NOTE | 2023-02-24 16:06 | NUR ---
accucheck: blood sugarr 159
--- NOTE | 2023-02-24 17:46 | NUR ---
CONSULTATION PAGED REASON FOR CONSULTATION:PARKINSONS DISEASE WAS CONSULT CALLED?Y PERSON WHO WAS NOTIFIED:TEXT MESSAGED ELSY BARAKAT CONSULTING PHYSICIAN:ELSY BARAKAT CHAIR SPECIALTY:NEURO CHAIR PHONE NUMBER:[phone] REQUESTING PHYSICIAN:WESLEY GUERRERO
--- NOTE | 2023-02-24 17:47 | NUR ---
Patient will be admitted to care of RN. Admitted to MEDSURG unit. Will go to room 121C. Belongings list completed. Complete and up to date summary report printed. SBAR report to be given at bedside with opportunity for questions.
--- NOTE | 2023-02-24 18:00 | NUR ---
admission notes Received pt from kemi , pt diagnosed with exacerbation of parkinsons, pt will be under dr galan. pt educated on the use of calllight, tv and bed controls. encouraged to call for assist. bed alarm on, bed in low position.
[2023-02-24 18:01] VITALS: BP_SYST 153
[2023-02-24] MEDS: LIPASE/PROTEASE/AMYLASE 1 CAP PO SCH (18:08)
[2023-02-24 18:25] VITALS: BP_SYST 153
[2023-02-24 19:00] VITALS: BP_SYST 124
[2023-02-24] MEDS ORDERED: DOCUSATE SODIUM 250 MG CAPSULE PO SCH (21:00)
[2023-02-24] MEDS: PRAMIPEXOLE DI-HCL 1 MG TABLET PO SCH (21:00)
[2023-02-24] MEDS ORDERED: NON-FORMULARY MEDICATION (Benztropine Mesylate 0.5 MG) PO SCH (21:00)
[2023-02-24] MEDS: levETIRAcetam 500 MG TABLET PO SCH (21:49)
[2023-02-24] MEDS: GABAPENTIN 300 MG CAPSULE PO SCH (21:49)
[2023-02-24] MEDS: BENZTROPINE MESYLATE 1 MG TABLET PO SCH (21:50)
[2023-02-24] MEDS: busPIRone HCL 5 MG TABLET PO SCH (21:50)
[2023-02-24] MEDS: ENOXAPARIN SODIUM 40 MG/0.4 ML SYRINGE SUBCUT SCH (21:58)
[2023-02-24] MEDS: traMADol HCL HCL 50 MG TABLET (ULTRAM) PO PRN (22:25)
[2023-02-24] MEDS: INSULIN REGULAR, HUMAN 100 UNITS/ML, 3 ML VIAL (humuLIN R) SUBCUT PRN (22:26)
[2023-02-25 00:33] VITALS: BP_SYST 149
[2023-02-25 04:00] VITALS: BP_SYST 158
[2023-02-25] MEDS: LEVOTHYROXINE SODIUM 0.1 MG TABLET PO SCH (06:34)
[2023-02-25] MEDS: LEVOTHYROXINE SODIUM 0.075 MG TABLET PO SCH (06:34)
--- NOTE | 2023-02-25 07:30 | NUR ---
Initial Note: patient is awake alert x4. Bed in the lowest position and side rails x3 up. Bed alarm is on. Call light in reach. Side rails packed for seizure precaution. Report received from [facility]. Assessment is done and vital checked. No pain or discomfort at this time. will continue patient care.
[2023-02-25 08:00] VITALS: BP_SYST 137
[2023-02-25] MEDS ORDERED: MOXIFLOXACIN HCL OP SCH (09:00)
[2023-02-25] MEDS ORDERED: NON-FORMULARY MEDICATION (Levothyroxine Sodium 175 MCG) PO SCH (09:00)
[2023-02-25] MEDS: GABAPENTIN 300 MG CAPSULE PO SCH ×3 (09:32→21:46)
[2023-02-25] MEDS: LIPASE/PROTEASE/AMYLASE 1 CAP PO SCH ×3 (09:32→17:08)
[2023-02-25] MEDS: ASCORBIC ACID 500 MG TABLET PO SCH (09:32)
[2023-02-25] MEDS: OLANZapine 5 MG TABLET PO SCH (09:33)
[2023-02-25] MEDS: PANTOPRAZOLE SODIUM 40 MG TAB PO SCH (09:33)
[2023-02-25] MEDS: busPIRone HCL 5 MG TABLET PO SCH ×2 (09:33→21:46)
[2023-02-25] MEDS: FLUoxetine HCL 20 MG CAPSULE (PROzac) PO SCH (09:33)
[2023-02-25] MEDS: FERROUS GLUCONATE 324 MG TABLET PO SCH (09:33)
[2023-02-25] MEDS: levETIRAcetam 500 MG TABLET PO SCH ×2 (09:34→22:01)
[2023-02-25] MEDS: BENZTROPINE MESYLATE 1 MG TABLET PO SCH ×2 (09:34→21:47)
[2023-02-25 11:25] VITALS: BP_SYST 151
--- NOTE | 2023-02-25 12:25 | NUR ---
ANTONI spoke with Gilda at [facility] and [facility] regarding Dr Guadalupe requesting a bed for this patient there. Gilda gave patient a bed. room 120A. ANTONI will fax DCP order and referral to # [phone]
[2023-02-25] MEDS: INSULIN REGULAR, HUMAN 100 UNITS/ML, 3 ML VIAL (humuLIN R) SUBCUT PRN ×2 (12:36→22:03)
[2023-02-25] MEDS: traMADol HCL HCL 50 MG TABLET (ULTRAM) PO PRN (12:57)
[2023-02-25 15:28] VITALS: BP_SYST 149
[2023-02-25] MEDS: LORazepam 1 MG TABLET PO PRN (15:59)
--- NOTE | 2023-02-25 17:00 | NUR ---
DC transportation placed on will call with [facility] . [phone]. Call to activate on day of patient discharge. Addendum: 02/25/23 at 1702 by Aretha Dotson RN DC packet will be on unit at nurses station
[2023-02-25 19:55] VITALS: BP_SYST 129
--- NOTE | 2023-02-25 19:55 | NUR ---
RECEIVED PT IN BED, AOX4, EVEN AND UNLABORED BREATHING, SENIOR SYSTEM OPERATOR AT BEDSIDE, STATED THAT PT IS LEGALLY BLIND ON BOTH EYES, BEDREST, REQUESTING FOR PUREWICK FOR PT STATING THAT PT NEED TO GO FREQUENTLY AND KEEP TRYING TO GET OUT OF BED ON HER OWN W/O USING CALL LIGHT, PT STARTED ON PUREWICK, SALINE LOCK TO THE RHAND, WILL CONTINUE WITH POC
--- NOTE | 2023-02-25 20:11 | NUR ---
Closing note: reported to Adrianne BRANTLEY. No pain or discomfort at this time. Caregiver at the bedside. Endorse to continue patient care.
[2023-02-25] MEDS: PRAMIPEXOLE DI-HCL 1 MG TABLET PO SCH (21:52)
[2023-02-25] MEDS: traZODone HCL 50 MG TABLET (DESYREL) PO SCH (22:00)
[2023-02-25] MEDS: ENOXAPARIN SODIUM 40 MG/0.4 ML SYRINGE SUBCUT SCH (22:04)
[2023-02-26 00:01] VITALS: BP_SYST 140
[2023-02-26] MEDS: LEVOTHYROXINE SODIUM 0.1 MG TABLET PO SCH (06:42)
[2023-02-26] MEDS: LEVOTHYROXINE SODIUM 0.075 MG TABLET PO SCH (06:42)
--- NOTE | 2023-02-26 07:02 | NUR ---
PT IN BED, AOX4, EVEN AND UNLABORED BREATHING, ROOM AIR, DENIED SOB, CP, OR ANY PAIN ATT, LEGALLY BLIND, BEDREST, VOIDING VIA PUREWICK, SALINE LOCK TO THE [facility], PATENT, WILL ENDORSE TO AM SHIFT
--- NOTE | 2023-02-26 07:40 | NUR ---
RN OPENING NOTE REPORT WAS ENDORSED BY NIGHT NURSE. PATIENT APPEARS TO BE RESTING WITH BOTH EYES CLOSED NO SIGNS OF ANY DISTRESS, BREATHING IS EQUAL AND NON LABORED. PATIENT HAS ALL SAFETY AND SEIZURE PRECAUTIONS IN PLACE. CLOSE TO NURSES STATION.
[2023-02-26 08:08] VITALS: BP_SYST 152
[2023-02-26] MEDS: OLANZapine 5 MG TABLET PO SCH (08:15)
[2023-02-26] MEDS: GABAPENTIN 300 MG CAPSULE PO SCH ×3 (08:15→20:37)
[2023-02-26] MEDS: FLUoxetine HCL 20 MG CAPSULE (PROzac) PO SCH (08:16)
[2023-02-26] MEDS: busPIRone HCL 5 MG TABLET PO SCH ×2 (08:17→20:35)
[2023-02-26] MEDS: FERROUS GLUCONATE 324 MG TABLET PO SCH (08:17)
[2023-02-26] MEDS: ASCORBIC ACID 500 MG TABLET PO SCH (08:18)
[2023-02-26] MEDS: LIPASE/PROTEASE/AMYLASE 1 CAP PO SCH ×3 (08:19→17:16)
[2023-02-26] MEDS: PANTOPRAZOLE SODIUM 40 MG TAB PO SCH (08:20)
[2023-02-26] MEDS: BENZTROPINE MESYLATE 1 MG TABLET PO SCH ×2 (08:23→20:35)
[2023-02-26] MEDS: levETIRAcetam 500 MG TABLET PO SCH ×2 (08:23→20:36)
--- NOTE | 2023-02-26 08:24 | NUR ---
MEDICATION PATIENTS SCHEDULED MEDICATION GIVEN PER ORDER. PATIENT PROVIDED WITH INCONTINENCE CARE. EDUCATED GYROSCOPIC INSTRUMENT TESTER LIGHT FOR ASSISTANCE. CALL LIGHT IS WITH HER. CLOSE TO NURSES STATION.
[2023-02-26 11:21] VITALS: BP_SYST 150
[2023-02-26] MEDS: INSULIN REGULAR, HUMAN 100 UNITS/ML, 3 ML VIAL (humuLIN R) SUBCUT PRN (12:07)
--- NOTE | 2023-02-26 12:15 | NUR ---
MEDICATION/ACCU CHECK PATIENTS MEDICATION GIVEN PER ORDER. ACCU CHECK DONE, COVERAGE GIVEN PER ORDER. PATIENT IS SITTING UP AT EDGE OF BED EATING LUNCH. PATIENT EDUCATED PITCH FLAKER LIGHT FOR ASSISTANCE. CALL LIGHT IS WITH HER NO OTHER NEEDS AT THIS TIME.
--- NOTE | 2023-02-26 15:01 | NUR ---
medication Addendum: 02/26/23 at 1940 by Marjorie Carpenter RN PATIENTS SCHEDULED MEDICATION GIVEN PER ORDER. ASSISTED TO BEDSIDE COMMODE AND BACK TO BED. PATIENT EDUCATED IN FLIGHT TECHNICIAN LIGHT FOR ASSISTANCE. CALL LIGHT IS WITH HER. CLOSE TO NURSES STATION NO OTHER NEEDS AT THIS TIME.
[2023-02-26 15:19] VITALS: BP_SYST 151
--- NOTE | 2023-02-26 16:47 | NUR ---
accu check patients accu check done no coverage needed. patient is awake working with pt. patient has no other needs at this time.
[2023-02-26] MEDS: LORazepam 1 MG TABLET PO PRN ×2 (17:24→23:20)
--- NOTE | 2023-02-26 17:32 | NUR ---
P.T. NOTES P.T. EVAL COMPLETED; REFER TO EVAL FOR DETAILS.
--- NOTE | 2023-02-26 19:37 | NUR ---
PATIENTS SCHEDULED MEDICATION GIVEN PER ORDER. ASSISTED TO BEDSIDE COMMODE AND BACK TO BED. PATIENT EDUCATED SERVICE UNIT OPERATOR OIL WELL LIGHT FOR ASSISTANCE. CALL LIGHT IS WITH HER. CLOSE TO NURSES STATION NO OTHER NEEDS AT THIS TIME. Addendum: 02/26/23 at 1940 by Marjorie Carpenter RN PLEASE DISREGARD PREVIOUS NOTE WRONG TIME RN CLOSING NOTE REPORT WAS ENDORSED TO NIGHT NURSE.SPOKE WITH DR. GANT REGARDING PATIENT. NO ORDERS WERE RECEIVED.ALL SAFETY PRECAUTIONS IN PLACE. PATIENT IS AWAKE AND ALERT LAYING IN BED.
[2023-02-26 20:00] VITALS: BP_SYST 141
[2023-02-26] MEDS: ENOXAPARIN SODIUM 40 MG/0.4 ML SYRINGE SUBCUT SCH (20:36)
[2023-02-26] MEDS: traZODone HCL 50 MG TABLET (DESYREL) PO SCH (20:36)
[2023-02-26] MEDS: PRAMIPEXOLE DI-HCL 1 MG TABLET PO SCH (20:37)
[2023-02-27] VITALS: BP_SYST 132
[2023-02-27 04:00] VITALS: BP_SYST 140
[2023-02-27] MEDS: LEVOTHYROXINE SODIUM 0.1 MG TABLET PO SCH (06:32)
[2023-02-27] MEDS: INSULIN REGULAR, HUMAN 100 UNITS/ML, 3 ML VIAL (humuLIN R) SUBCUT PRN (06:47)
[2023-02-27] MEDS: LEVOTHYROXINE SODIUM 0.075 MG TABLET PO SCH (07:00)
--- NOTE | 2023-02-27 07:31 | NUR ---
rn opening note Report was endorsed by night nurse. Patient is awake and alert laying in bed. no complaints at this time. call light is with her educated to use call light for assistance. patient is close to nurse station. Addendum: 02/27/23 at 4789 by Marjorie Carpenter RN patient states that the night nurse already gave her the Synthroid.
[2023-02-27 08:00] VITALS: BP_SYST 128
[2023-02-27] MEDS: OLANZapine 5 MG TABLET PO SCH (08:16)
[2023-02-27] MEDS: FLUoxetine HCL 20 MG CAPSULE (PROzac) PO SCH (08:16)
[2023-02-27] MEDS: BENZTROPINE MESYLATE 1 MG TABLET PO SCH ×2 (08:16→20:34)
[2023-02-27] MEDS: LIPASE/PROTEASE/AMYLASE 1 CAP PO SCH ×3 (08:16→17:29)
[2023-02-27] MEDS: ASCORBIC ACID 500 MG TABLET PO SCH (08:17)
[2023-02-27] MEDS: GABAPENTIN 300 MG CAPSULE PO SCH ×3 (08:17→20:34)
[2023-02-27] MEDS: FERROUS GLUCONATE 324 MG TABLET PO SCH (08:17)
[2023-02-27] MEDS: PANTOPRAZOLE SODIUM 40 MG TAB PO SCH (08:17)
[2023-02-27] MEDS: busPIRone HCL 5 MG TABLET PO SCH ×2 (08:18→20:34)
[2023-02-27] MEDS: levETIRAcetam 500 MG TABLET PO SCH ×2 (08:18→20:34)
--- NOTE | 2023-02-27 08:22 | NUR ---
medication patients scheduled medication given per order. patient is awake and alert sitting up in bed. already ate breakfast. patient has no complaints at this time. call light is with her educated to use for assistance.
[2023-02-27] MEDS: traMADol HCL HCL 50 MG TABLET (ULTRAM) PO PRN (10:17)
--- NOTE | 2023-02-27 10:19 | NUR ---
pain medication patient complains of pain medicated per order. patient is awake and alert states she slept wrong. patient educated second worker light for asistance. call light is with her. no other needs at this time. patient is close to nurse station.
[2023-02-27 11:18] VITALS: BP_SYST 114
--- NOTE | 2023-02-27 11:26 | NUR ---
judit kamara for pain medication Addendum: 02/27/23 at 1134 by Marjorie Carpenter RN orders received
[2023-02-27] MEDS ORDERED: IBUPROFEN 600 MG TABLET PO PRN (11:30)
--- NOTE | 2023-02-27 11:58 | NUR ---
pain medication given per order, accu check done no coverage, medication given per order. patient educated to use call light for assistance. call light is with her. no other needs at this time.
--- NOTE | 2023-02-27 15:00 | NUR ---
rn rounding patient states she feels so much better that the pain medication helped her so much. given snack as requested. no other needs at this time. patient educated reproduction technician light for assistance. call light is with her. patient is close to nurses station.
[2023-02-27 15:22] VITALS: BP_SYST 94
--- NOTE | 2023-02-27 18:53 | NUR ---
rn closing note Patient is awake and alert laying in bed, no complaints at this time. Call light is with her educated to use for assistance. patient has no other needs at this time. patient is close to nurses station. patient has no complaints at this time.
[2023-02-27] MEDS: traZODone HCL 50 MG TABLET (DESYREL) PO SCH (20:33)
[2023-02-27] MEDS: ENOXAPARIN SODIUM 40 MG/0.4 ML SYRINGE SUBCUT SCH (20:33)
[2023-02-27] MEDS: LORazepam 1 MG TABLET PO PRN (20:44)
[2023-02-27] MEDS: PRAMIPEXOLE DI-HCL 1 MG TABLET PO SCH (20:57)
[2023-02-27 22:22] VITALS: BP_SYST 113
[2023-02-28 01:27] VITALS: BP_SYST 129
--- NOTE | 2023-02-28 03:00 | NUR ---
pt.re-assigned.to assume the pt.care for the remainder of the shift.igor provided the pt's report/data.pt.quiescent/ pt.presents activity status bedrest.per flacc pain mgx pt.absent facial grimaces/body posturing.pt.assessed for cleanliness pt.repositioned.call light/telephone placed w/in access of the pt.
--- NOTE | 2023-02-28 04:00 | NUR ---
pt.assessed.pt.assisted to the bsc.pt.assisted return to bed.pt.capable to reposition self.no c/o pain,nausea. call light/telephone placed w/in access of the pt.
[2023-02-28 04:31] LABS: BASOPHILS % (AUTO) 0.5 % (0.0-2.0); EOSINOPHILS # (AUTO) 0.2 K/uL (0.0-0.4); EOSINOPHILS % (AUTO) 3.1 % (0.0-4.0); HEMATOCRIT 33.2 % (36-48); HEMOGLOBIN 11.4 g/dL (12.0-16.0); LYMPHOCYTES # (AUTO) 1.4 K/uL (1.0-5.5); LYMPHOCYTES % (AUTO) 25.3 % (20.5-51.5); MEAN CORPUSCULAR HEMOGLOBIN 30 pg (27-31); MEAN CORPUSCULAR HGB CONC 34 % (32-36); MEAN CORPUSCULAR VOLUME 89 fL (79.0-98.0); MONOCYTES # (AUTO) 0.5 K/uL (0.0-1.0); MONOCYTES % (AUTO) 9.4 % (1.7-9.3); NEUTROPHILS # (AUTO) 3.4 K/uL (1.8-7.7); NEUTROPHILS % (AUTO) 61.7 % (40.0-70.0); PLATELET COUNT (AUTO) 177 K/uL (130-430); RED BLOOD CELL COUNT(AUTO) 3.75 MIL/uL (4.2-6.2); RED CELL DISTRIBUTION WIDTH 12.5 % (9.0-15.0); WHITE BLOOD COUNT (AUTO) 5.5 K/uL (4.8-10.8)
[2023-02-28 04:53] LABS: ALANINE AMINOTRANSFERASE 33 U/L (12-78); ALBUMIN 2.6 g/dL (3.4-4.8); ANION GAP 8 (5-15); ASPARTATE AMINOTRANSFERASE 21 U/L (10-37); CALCIUM 8.1 mg/dL (8.4-11.0); CHLORIDE 103 mmol/L (98-107); CREATININE 1.51 mg/dL (0.55-1.30); FREE T4 (FREE THYROXINE) 1.5 ng/dL (0.6-1.6); GLUCOSE 148 mg/dL (70-99); TOTAL BILIRUBIN 0.4 mg/dL (0.0-1.0); UREA NITROGEN, BLOOD 28 mg/dL (8-21)
--- NOTE | 2023-02-28 06:00 | NUR ---
pt.assessed.no c/o pain,nausea.blood glucose assessed value:172mg/dl.insulin:2-u administered.no requests posited@ this hour.pt.repositioned.call light/telephone placed w/in access of the pt.
[2023-02-28] MEDS: INSULIN REGULAR, HUMAN 100 UNITS/ML, 3 ML VIAL (humuLIN R) SUBCUT PRN (06:04)
[2023-02-28] MEDS: LEVOTHYROXINE SODIUM 0.1 MG TABLET PO SCH (07:00)
[2023-02-28] MEDS: LEVOTHYROXINE SODIUM 0.075 MG TABLET PO SCH (07:00)
[2023-02-28 08:00] VITALS: BP_SYST 150
--- NOTE | 2023-02-28 08:00 | NUR ---
Opening Notes Patient is AOx4. Forgetful. No ss of distress noted. Breathing is even and nonlabored, on room air. Vital signs obtained, as documented. Patient denies pain. No SOB noted. Patient is eating breakfast. IV appears to be patent. No ss of infiltration noted. Bed is locked, alarm on, and at lowest position. Call light within reach.
[2023-02-28] MEDS: FERROUS GLUCONATE 324 MG TABLET PO SCH (10:06)
[2023-02-28] MEDS: LIPASE/PROTEASE/AMYLASE 1 CAP PO SCH ×2 (10:06→13:39)
[2023-02-28] MEDS: traMADol HCL HCL 50 MG TABLET (ULTRAM) PO PRN (10:06)
[2023-02-28] MEDS: GABAPENTIN 300 MG CAPSULE PO SCH ×2 (10:06→15:00)
[2023-02-28] MEDS: levETIRAcetam 500 MG TABLET PO SCH (10:06)
[2023-02-28] MEDS: BENZTROPINE MESYLATE 1 MG TABLET PO SCH (10:06)
[2023-02-28] MEDS: PANTOPRAZOLE SODIUM 40 MG TAB PO SCH (10:07)
[2023-02-28] MEDS: FLUoxetine HCL 20 MG CAPSULE (PROzac) PO SCH (10:07)
[2023-02-28] MEDS: busPIRone HCL 5 MG TABLET PO SCH (10:07)
[2023-02-28] MEDS: ASCORBIC ACID 500 MG TABLET PO SCH (10:07)
[2023-02-28] MEDS: OLANZapine 5 MG TABLET PO SCH (10:07)
[2023-02-28 11:34] VITALS: BP_SYST 141
--- NOTE | 2023-02-28 12:00 | NUR ---
Notes patient is eating lunch. Denies pain. No distress noted. No change from previous assessment. All safety precautions in place and call light within reach.
--- NOTE | 2023-02-28 13:26 | NUR ---
[facility] 1 WILL BE HERE AT 2:15 PM GOING TO [facility] TO BED 120A TALK TO SARAH WILL TELL JOSÉ MIGUEL
[2023-02-28] MEDS: LORazepam 1 MG TABLET PO PRN (13:39)
[2023-02-28 14:03] VITALS: BP_SYST 141
--- NOTE | 2023-02-28 15:19 | NUR ---
PHYSICAL THERAPY CO-SIGN The Physical Therapy Progress Notes documented by Solar Process Engineer have been reviewed. Reviewed/Co-Signed by: Pedro Francois Documentation Done by:CASSI CARR Addendum: 02/28/23 at 1520 by Pedro Francois PT Amended: Links added.
--- NOTE | 2023-02-28 15:22 | NUR ---
D/C Patient Patient given medication reconciliation form and D/C instructions. Exit Care provided. Patient verbalized understanding. MD discussed with patient the results and treatment provided. Ambulatory with steady gait for discharge to home. Patient in stable condition, ID band removed. IV catheter removed, intact and dressing applied, no active bleeding. Rx of given. Patient educated on pain management. All belongings sent with patient. Called Angelina Swann at , spoke to KARON Fong. report given.
== END 2023-02-28 15:22 | DRG 56 ==
LOC: SED 11:15 → SMU 14:24
PROVIDERS: ADMIT Family Medicine; ATTEND Family Medicine
PROC: 4A00X4Z Measurement of Central Nervous Electrical Activity, External Approach (ICD-10-PCS; principal; 2023-02-25)
DX: G20 Parkinson's disease (principal); G93.41 Metabolic encephalopathy; E03.9 Hypothyroidism, unspecified; I10 Essential (primary) hypertension; E11.9 Type 2 diabetes mellitus without complications; F31.9 Bipolar disorder, unspecified; J44.9 Chronic obstructive pulmonary disease, unspecified; F41.9 Anxiety disorder, unspecified; K21.9 Gastro-esophageal reflux disease without esophagitis; F17.200 Nicotine dependence, unspecified, uncomplicated; Z88.1 Allergy status to other antibiotic agents; Z88.0 Allergy status to penicillin; Z88.8 Allergy status to other drugs, medicaments and biological substances; Z79.899 Other long term (current) drug therapy; Z85.850 Personal history of malignant neoplasm of thyroid
CPT/HCPCS: 36415; 71045; 76376; 80053; 81000; 82009; 82550; 83605; 84439; 84443; 84484; 85025; 85610-TC; 85730-TC; 86140; 87040; 93005; 95816; 96374; 97112-GP; 97116-GP; 97530-GP; 99285; J1650; J1815; J2060

== ENCOUNTER 2023-11-18 12:23 | Inpatient (IN) | payer OTHER, MEDICAID ==
[2023-11-18] VITALS (8 sets, daily range): BP systolic 91–161; PULSE 106–114; RESP 10–25; TEMP 96.2–97; O2SAT 91–100
[~2023-11-18] VITALS: Ht 167.6 cm; Wt 92.1 kg
[~2023-11-18 12:23] MED LIST changes: +BENZ0.5T3 PO; -BENZ0.5T43 PO; -GABA300S PO; +GABA300S4 PO; +PRAM1TAB5 PO; +TRAM50TA2 PO; +TRAZ-251 PO
[2023-11-18] MEDS ORDERED: VECURONIUM BROMIDE 10 MG/VIAL (NORCURON) ONE (12:45)
[2023-11-18] MEDS ORDERED: ETOMIDATE 20 MG/ 10 ML VIAL (AMIDATE) ONE (12:45)
[2023-11-18 14:15] LABS: ABG O2 SAT% ESTIMATE 98.4 % (94.0-100.0); ALLEN'S TEST POSITIVE (P); BLOOD GAS HCO3 21.3 mmol/L (21.0-27.0); BLOOD GAS PH 7.345 (7.350-7.450); BLOOD GAS PO2 127.6 mmHg (75.0-100.0)
[2023-11-18 15:56] LABS: BASOPHILS % (AUTO) 0.2 % (0.0-2.0); HEMATOCRIT 40.7 % (36-48); HEMOGLOBIN 13.7 g/dL (12.0-16.0); LYMPHOCYTES # (AUTO) 0.3 K/uL (1.0-5.5); LYMPHOCYTES % (AUTO) 2.2 % (20.5-51.5); MEAN CORPUSCULAR HEMOGLOBIN 29 pg (27-31); MEAN CORPUSCULAR HGB CONC 34 % (32-36); MEAN CORPUSCULAR VOLUME 86 fL (79.0-98.0); MONOCYTES # (AUTO) 0.6 K/uL (0.0-1.0); MONOCYTES % (AUTO) 4.2 % (1.7-9.3); NEUTROPHILS # (AUTO) 13.2 K/uL (1.8-7.7); NEUTROPHILS % (AUTO) 93.4 % (40.0-70.0); PLATELET COUNT (AUTO) 232 K/uL (130-430); RED BLOOD CELL COUNT(AUTO) 4.76 MIL/uL (4.2-6.2); RED CELL DISTRIBUTION WIDTH 13.7 % (9.0-15.0); WHITE BLOOD COUNT (AUTO) 14.1 K/uL (4.8-10.8)
[2023-11-18 16:05] LABS: ANION GAP 9 (5-15); CALCIUM 9.2 mg/dL (8.4-11.0); CARBON DIOXIDE 29 mmol/L (23-29); CHLORIDE 105 mmol/L (98-107); CREATININE 1.14 mg/dL (0.55-1.30); GLUCOSE 288 mg/dL (74-106); POTASSIUM 3.9 mmol/L (3.5-5.1); SODIUM SERUM 143 mmol/L (136-145); UREA NITROGEN, BLOOD 25 mg/dL (8-21)
[2023-11-18 16:10] LABS: ALANINE AMINOTRANSFERASE 45 U/L (12-78); ALBUMIN 3.1 g/dL (3.4-4.8); ASPARTATE AMINOTRANSFERASE 33 U/L (10-37); BILIRUBIN,DIRECT 0.2 mg/dL (0.0-0.3); TOTAL BILIRUBIN 0.6 mg/dL (0.0-1.0); TOTAL PROTEIN, SERUM 7.3 g/dL (6.4-8.3)
[2023-11-18] MEDS: D5/0.45 NS 1,000 ML IV SCH (16:30)
[2023-11-18] MEDS: MIDAZOLAM IN NACL,ISO-OSMOT/PF 100 ML IV PRN (17:36)
[2023-11-18] MEDS ORDERED: VITD2000 PO (19:37)
[2023-11-18] MEDS ORDERED: MAGN400T10 PO (19:37)
[2023-11-18] MEDS ORDERED: LORA-258 PO (19:41)
[2023-11-18] MEDS ORDERED: INSU100V SUBCUT (19:41)
[2023-11-18] MEDS ORDERED: INSU300I SQ (19:41)
[2023-11-18 20:13] LABS: BILIRUBIN,URINE NEGATIVE (NEGATIVE); CLARITY/URINE CLEAR (CLEAR); COLOR,URINE YELLOW (YELLOW); GLUCOSE,URINE 3+ (NEGATIVE); KETONES,URINE 1+ (NEGATIVE); LEUKOCYTE ESTERASE ,URINE NEGATIVE (NEGATIVE); NITRITE, URINE NEGATIVE (NEGATIVE); PROTEIN URINE TRACE (NEGATIVE); UROBILINOGEN,URINE 0.2 (0.2-1.0)
[2023-11-18 20:20] LABS: BLOOD, URINE TRACE (NEGATIVE)
[2023-11-18 20:23] LABS: BARBITURATE, URINE NEGATIVE (NEG <=200); METHAMPHETAMINES SCREEN,URINE NEGATIVE (NEG <=500); URINE AMPHETAMINE NEGATIVE (NEG <=500); URINE METHADONE NEGATIVE (NEG <=200)
[2023-11-18 20:24] LABS: BENZODIAZEPINE, URINE POSITIVE (NEG <=150); CANNABINOID, URINE NEGATIVE (NEG <=50); COCAINE, URINE NEGATIVE (NEG <=150); OPIATE, URINE NEGATIVE (NEG <=100); PHENCYCLIDINE SCREEN,URINE NEGATIVE (NEG <=25); UR TRICYCLIC ANTIDEPRESSANTS NEGATIVE (NEG <=300); URINE OXYCODONE SCREEN NEGATIVE (NEG <=100)
[2023-11-18 20:27] LABS: BACTERIA,URINE None Seen /HPF (None Seen); MUCUS,URINE 1+ /LPF (None Seen); WBC,URINE 0-3 /HPF (0-3)
[2023-11-18] MEDS: PROPOFOL DRIP 100 ML IV ONE (20:56)
[2023-11-18] MEDS: PROPOFOL DRIP 100 ML IV PRN (20:56)
[2023-11-19] VITALS (39 sets, daily range): BP systolic 67–162; PULSE 59–153; RESP 11–49; TEMP 96.5–97.7; O2SAT 84–100
[2023-11-19] MEDS: PROPOFOL DRIP 100 ML IV PRN (05:11)
[2023-11-19 06:37] LABS: BASOPHILS % (AUTO) 0.3 % (0.0-2.0); HEMATOCRIT 35.6 % (36-48); LYMPHOCYTES # (AUTO) 0.5 K/uL (1.0-5.5); LYMPHOCYTES % (AUTO) 4.1 % (20.5-51.5); MEAN CORPUSCULAR HEMOGLOBIN 29 pg (27-31); MEAN CORPUSCULAR HGB CONC 34 % (32-36); MEAN CORPUSCULAR VOLUME 85 fL (79.0-98.0); MONOCYTES # (AUTO) 0.7 K/uL (0.0-1.0); MONOCYTES % (AUTO) 5.7 % (1.7-9.3); NEUTROPHILS # (AUTO) 11.8 K/uL (1.8-7.7); NEUTROPHILS % (AUTO) 89.9 % (40.0-70.0); PLATELET COUNT (AUTO) 221 K/uL (130-430); RED BLOOD CELL COUNT(AUTO) 4.17 MIL/uL (4.2-6.2); RED CELL DISTRIBUTION WIDTH 13.8 % (9.0-15.0); WHITE BLOOD COUNT (AUTO) 13.1 K/uL (4.8-10.8)
[2023-11-19 07:03] LABS: ALANINE AMINOTRANSFERASE 39 U/L (12-78); ALBUMIN 2.6 g/dL (3.4-4.8); ANION GAP 10 (5-15); ASPARTATE AMINOTRANSFERASE 28 U/L (10-37); CALCIUM 8.9 mg/dL (8.4-11.0); CARBON DIOXIDE 28 mmol/L (23-29); CHLORIDE 104 mmol/L (98-107); CREATININE 1.34 mg/dL (0.55-1.30); GLUCOSE 397 mg/dL (74-106); POTASSIUM 4.3 mmol/L (3.5-5.1); SODIUM SERUM 142 mmol/L (136-145); TOTAL BILIRUBIN 0.6 mg/dL (0.0-1.0); TOTAL PROTEIN, SERUM 6.5 g/dL (6.4-8.3); UREA NITROGEN, BLOOD 28 mg/dL (8-21)
[2023-11-19] MEDS: PANTOPRAZOLE SODIUM 40 MG/VIAL (PROTONIX) IVP ONE (10:06)
[2023-11-19] MEDS: ENOXAPARIN SODIUM 40 MG/0.4 ML SYRINGE SUBCUT SCH (10:06)
[2023-11-19] MEDS: ALBUMIN HUMAN 25% 50 ML IV ONE (10:06)
[2023-11-19] MEDS: NOREPINEPHRINE BITARTRATE 4 MG in NS 246 ML IV PRN (21:17)
[2023-11-19] MEDS: FENTANYL CITRATE-0.9 % NACL/PF 100 ML IV PRN (21:24)
[2023-11-20] VITALS (38 sets, daily range): BP systolic 101–142; PULSE 70–91; RESP 12–30; TEMP 97–98.1; O2SAT 83–99
[2023-11-20] MEDS: NOREPINEPHRINE 4 MG/4 ML VIAL IV ONE (03:35)
[2023-11-20 06:11] LABS: BASOPHILS # (AUTO) 0.1 K/uL (0.0-0.2); BASOPHILS % (AUTO) 0.3 % (0.0-2.0); EOSINOPHILS % (AUTO) 0.1 % (0.0-4.0); HEMATOCRIT 37.7 % (36-48); HEMOGLOBIN 12.4 g/dL (12.0-16.0); LYMPHOCYTES # (AUTO) 1.8 K/uL (1.0-5.5); LYMPHOCYTES % (AUTO) 9.6 % (20.5-51.5); MEAN CORPUSCULAR HEMOGLOBIN 28 pg (27-31); MEAN CORPUSCULAR HGB CONC 33 % (32-36); MEAN CORPUSCULAR VOLUME 86 fL (79.0-98.0); MONOCYTES # (AUTO) 1.6 K/uL (0.0-1.0); MONOCYTES % (AUTO) 8.6 % (1.7-9.3); NEUTROPHILS # (AUTO) 15.2 K/uL (1.8-7.7); NEUTROPHILS % (AUTO) 81.4 % (40.0-70.0); PLATELET COUNT (AUTO) 292 K/uL (130-430); RED CELL DISTRIBUTION WIDTH 13.7 % (9.0-15.0); WHITE BLOOD COUNT (AUTO) 18.7 K/uL (4.8-10.8)
[2023-11-20 06:47] LABS: ANION GAP 12 (5-15); CALCIUM 8.3 mg/dL (8.4-11.0); CARBON DIOXIDE 23 mmol/L (23-29); CHLORIDE 102 mmol/L (98-107); CREATININE 1.65 mg/dL (0.55-1.30); PHOSPHORUS 2.6 mg/dL (2.7-4.5); POTASSIUM 4.1 mmol/L (3.5-5.1); SODIUM SERUM 137 mmol/L (136-145); UREA NITROGEN, BLOOD 37 mg/dL (8-21)
[2023-11-20 06:49] LABS: ERYTHROCYTE SEDIMENTATION RATE 42 MM/HR (0-20)
[2023-11-20 06:55] LABS: GLUCOSE 447 mg/dL (74-106)
[2023-11-20] MEDS: VECURONIUM BROMIDE 10 MG/VIAL (NORCURON) IVP ONE (07:30)
[2023-11-20 07:36] LABS: ABG O2 SAT% ESTIMATE 87.4 % (94.0-100.0); BLOOD GAS HCO3 20.6 mmol/L (21.0-27.0); BLOOD GAS PCO2 36.7 mmHg (35.0-45.0); BLOOD GAS PH 7.368 (7.350-7.450); BLOOD GAS PO2 54.1 mmHg (75.0-100.0)
[2023-11-20 07:37] LABS: ALLEN'S TEST POSITIVE (P)
[2023-11-20] MEDS ORDERED: INSULIN GLARGINE HUM REC ANLOG 44 UNIT SQ SCH (09:30)
[2023-11-20] MEDS ORDERED: MOXIFLOXACIN HCL OP SCH (09:30)
[2023-11-20] MEDS: NA PHOS 15 MM in NS 250 ML IV ONE (11:30)
[2023-11-20] MEDS ORDERED: PIPERACILLIN/TAZO 3.375/DEX-IS 50 ML IV SCH (12:00)
[2023-11-20] MEDS: CALCIUM GLUC 2 GM/100ML-NACL 100 ML IV ONE (13:16)
[2023-11-20] MEDS: VANCOMYCIN HCL 1,000 MG in NS 250 ML IV ONE (13:40)
[2023-11-20] MEDS: INSULIN REGULAR, HUMAN 100 UNITS/ML, 3 ML VIAL (humuLIN R) SUBCUT PRN (13:43)
[2023-11-20] MEDS: AZTREONAM 1 GM in NS 50 ML IV SCH (14:42)
[2023-11-20] MEDS: NOREPINEPHR 4 MG/250 mL NS 250 ML IV PRN (18:05)
[2023-11-21] VITALS (47 sets, daily range): BP systolic 69–136; PULSE 77–123; RESP 10–41; TEMP 97–97.8; O2SAT 14–97
[2023-11-21] MEDS: INSULIN REGULAR, HUMAN 100 UNITS/ML, 3 ML VIAL SUBCUT SCH
[2023-11-21 04:41] LABS: ERYTHROCYTE SEDIMENTATION RATE 14 MM/HR (0-20)
[2023-11-21 04:49] LABS: BASOPHILS # (AUTO) 0.1 K/uL (0.0-0.2); BASOPHILS % (AUTO) 0.5 % (0.0-2.0); EOSINOPHILS % (AUTO) 0.1 % (0.0-4.0); HEMATOCRIT 37.3 % (36-48); HEMOGLOBIN 12.6 g/dL (12.0-16.0); LYMPHOCYTES # (AUTO) 1.2 K/uL (1.0-5.5); LYMPHOCYTES % (AUTO) 11.3 % (20.5-51.5); MEAN CORPUSCULAR HEMOGLOBIN 29 pg (27-31); MEAN CORPUSCULAR HGB CONC 34 % (32-36); MEAN CORPUSCULAR VOLUME 85 fL (79.0-98.0); MONOCYTES # (AUTO) 1.2 K/uL (0.0-1.0); MONOCYTES % (AUTO) 11.1 % (1.7-9.3); NEUTROPHILS # (AUTO) 8.4 K/uL (1.8-7.7); PLATELET COUNT (AUTO) 187 K/uL (130-430); RED BLOOD CELL COUNT(AUTO) 4.41 MIL/uL (4.2-6.2); WHITE BLOOD COUNT (AUTO) 10.8 K/uL (4.8-10.8)
[2023-11-21 05:22] LABS: ALANINE AMINOTRANSFERASE 34 U/L (12-78); ALBUMIN 2.1 g/dL (3.4-4.8); ANION GAP 11 (5-15); ASPARTATE AMINOTRANSFERASE 66 U/L (10-37); CALCIUM 7.8 mg/dL (8.4-11.0); CARBON DIOXIDE 21 mmol/L (23-29); CHLORIDE 109 mmol/L (98-107); CREATININE 2.18 mg/dL (0.55-1.30); GLUCOSE 294 mg/dL (74-106); PHOSPHORUS 1.5 mg/dL (2.7-4.5); POTASSIUM 4.1 mmol/L (3.5-5.1); SODIUM SERUM 141 mmol/L (136-145); TOTAL BILIRUBIN 1.3 mg/dL (0.0-1.0); TOTAL PROTEIN, SERUM 6.1 g/dL (6.4-8.3); UREA NITROGEN, BLOOD 42 mg/dL (8-21)
[2023-11-21 07:19] LABS: BLOOD GAS PCO2 46.3 mmHg (35.0-45.0)
[2023-11-21 07:21] LABS: BLOOD GAS BASE EXCESS -8.5 mmol/L (-3.0-3.0); BLOOD GAS PO2 49.6 mmHg (75.0-100.0)
[2023-11-21 07:22] LABS: ABG O2 SAT% ESTIMATE 77.9 % (94.0-100.0); ALLEN'S TEST POSITIVE (P)
[2023-11-21] MEDS: INSULIN GLARGINE 100 UNITS/ML, 10 ML VIAL SUBCUT SCH ×2 (09:00→09:30)
[2023-11-21 09:24] LABS: BLOOD GAS PCO2 42.2 mmHg (35.0-45.0); BLOOD GAS PO2 63.1 mmHg (75.0-100.0)
[2023-11-21 09:36] LABS: BLOOD GAS HCO3 16.6 mmol/L (21.0-27.0); BLOOD GAS PH 7.213 (7.350-7.450)
[2023-11-21 09:37] LABS: ABG O2 SAT% ESTIMATE 87.5 % (94.0-100.0); ALLEN'S TEST POSITIVE (P); BLOOD GAS BASE EXCESS -10.8 mmol/L (-3.0-3.0)
[2023-11-21] MEDS: NOREPINEPHRINE 4 MG/4 ML VIAL IV ONE (10:14)
[2023-11-21] MEDS: VECURONIUM BROMIDE 10 MG/VIAL (NORCURON) IVP ONE (10:42)
[2023-11-21 11:32] LABS: BLOOD GAS PCO2 36.8 mmHg (35.0-45.0)
[2023-11-21 11:41] LABS: BLOOD GAS PH 7.228 (7.350-7.450)
[2023-11-21 11:42] LABS: ABG O2 SAT% ESTIMATE 79.6 % (94.0-100.0)
[2023-11-21 11:43] LABS: ALLEN'S TEST POSITIVE (P); BLOOD GAS BASE EXCESS -11.7 mmol/L (-3.0-3.0)
[2023-11-21] MEDS: CALCIUM GLUC 2 GM/100ML-NACL 100 ML IV ONE (12:18)
[2023-11-21] MEDS: SODIUM BICARBONATE 8.4% JECT 150 MEQ in D5W 1,000 ML IV SCH (12:18)
[2023-11-21] MEDS: VANCOMYCIN HCL 750 MG in NS 250 ML IV SCH (12:20)
[2023-11-21] MEDS: NOREPINEPHR 8 MG/250 mL NS 250 ML IV PRN (12:56)
[2023-11-21] MEDS: NA PHOS 15 MM in NS 250 ML IV ONE (13:26)
[2023-11-21] MEDS ORDERED: NOREPINEPHRINE BITARTRATE 16 MG in NS 234 ML IV PRN (14:00)
[2023-11-21] MEDS: VECURONIUM BROMIDE 10 MG/VIAL (NORCURON) IVP SCH ×2 (14:00→19:21)
[2023-11-21] MEDS: NOREPINEPHR 16 MG/250 mL NS 250 ML IV PRN (15:37)
[2023-11-21] MEDS ORDERED: PHENYLEPHRINE HCL 100 MG in NS 240 ML IV PRN (21:00)
[2023-11-21] MEDS: ALBUMIN HUMAN 25% 50 ML IV ONE ×2 (21:00→21:01)
[2023-11-21] MEDS: PHENYLEPHRINE HCL 10 MG/ML VIAL (NEOSYNEPHRINE) ONE (21:08)
[2023-11-21] MEDS: VASOPRESSIN 40 UNITS in NS 38 ML IV PRN (23:48)
[2023-11-21] MEDS ORDERED: EPINEPHrine JECT 0.1 MG/ML SYR ONE (23:55)
[2023-11-21] MEDS ORDERED: SODIUM BICARBONATE 8.4% JECT 50 MEQ/50 ML SYRINGE ONE (23:55)
[2023-11-22] VITALS: BP_SYST 88; PULSE 106; RESP 24; TEMP 96.5; O2SAT 72
[2023-11-22 00:05] VITALS: BP_SYST 71; PULSE 98; RESP 24; O2SAT 67
[2023-11-22 00:21] VITALS: BP_SYST 78; PULSE 53; RESP 24; O2SAT 68
[2023-11-22 00:29] VITALS: BP_SYST 0; PULSE 0; RESP 0; O2SAT 0
== END 2023-11-22 00:39 | DRG 871 ==
LOC: SED 12:23 → SIC 16:17
PROVIDERS: ADMIT Preventive Medicine Preventive Medicine/Occupational Environmental Medicine; ATTEND Preventive Medicine Preventive Medicine/Occupational Environmental Medicine
PROC: 02HV33Z Insertion of Infusion Device into Superior Vena Cava, Percutaneous Approach (ICD-10-PCS; principal; 2023-11-18)
PROC: 5A1945Z Respiratory Ventilation, 24-96 Consecutive Hours (ICD-10-PCS; 2023-11-18)
PROC: B548ZZA Ultrasonography of Superior Vena Cava, Guidance (ICD-10-PCS; 2023-11-18)
PROC: 3E0A3GC Introduction of Other Therapeutic Substance into Bone Marrow, Percutaneous Approach (ICD-10-PCS; 2023-11-18)
PROC: 5A09357 Assistance with Respiratory Ventilation, Less than 24 Consecutive Hours, Continuous Positive Airway Pressure (ICD-10-PCS; 2023-11-18)
PROC: 0BH17EZ Insertion of Endotracheal Airway into Trachea, Via Natural or Artificial Opening (ICD-10-PCS; 2023-11-18)
PROC: 4A00X4Z Measurement of Central Nervous Electrical Activity, External Approach (ICD-10-PCS; 2023-11-21)
DX: A41.9 Sepsis, unspecified organism (principal); E43 Unspecified severe protein-calorie malnutrition; J96.00 Acute respiratory failure, unspecified whether with hypoxia or hypercapnia; J69.0 Pneumonitis due to inhalation of food and vomit; R65.21 Severe sepsis with septic shock; J18.9 Pneumonia, unspecified organism; N17.9 Acute kidney failure, unspecified; Z99.11 Dependence on respirator [ventilator] status; E78.5 Hyperlipidemia, unspecified; E11.65 Type 2 diabetes mellitus with hyperglycemia; E03.9 Hypothyroidism, unspecified; E88.09 Other disorders of plasma-protein metabolism, not elsewhere classified; E11.42 Type 2 diabetes mellitus with diabetic polyneuropathy; F31.9 Bipolar disorder, unspecified; M81.0 Age-related osteoporosis without current pathological fracture; G47.30 Sleep apnea, unspecified; D64.9 Anemia, unspecified; E11.21 Type 2 diabetes mellitus with diabetic nephropathy; I10 Essential (primary) hypertension; G20.A1 Parkinson's disease without dyskinesia, without mention of fluctuations; M54.30 Sciatica, unspecified side; Z88.1 Allergy status to other antibiotic agents; Z88.0 Allergy status to penicillin; Z88.8 Allergy status to other drugs, medicaments and biological substances; Z79.899 Other long term (current) drug therapy; Z85.850 Personal history of malignant neoplasm of thyroid
CPT/HCPCS: 36415; 36600; 70450-TC; 71045; 74018; 76376; 80048; 80053; 80076; 80307; 81000; 81001; 81015; 82803; 82948; 83735; 84100; 85025; 85651; 87040; 87070; 87081; 87086; 87205; 92950; 94002; 94003; 94640; 94760; 95816; 99291; C9113; J0171; J1650; J1815; J2370; J2704; J3010; J3370; J3490; J7050; J7060; P9046